=== PATIENT | female | born 1980 | race Native Hawaiian/Other Pacific Islander ===

== ENCOUNTER 2016-08-22 08:50 | Inpatient (IN) | payer OTHER ==
[~2016-08-22 08:50] MED LIST: Lactated Ringer's 1,000 ML IV ONE
--- NOTE | 2016-08-22 09:52 | ED PDOC ---
HPI: Abdomen Time Seen by Provider: 08/22/16 09:23 Chief Complaint (Nursing): Abdominal Pain Chief Complaint (Provider): Abdominal pain, back pain History Per: Patient History/Exam Limitations: no limitations Onset/Duration Of Symptoms: Days Outside of [place] travel?: No Current Symptoms Are (Timing): Still Present Severity: Moderate Location Of Pain/Discomfort: LLQ Quality Of Discomfort: "Pain" Associated Symptoms: Back Pain (radiates from llq to left lower back) Additional History Per: Patient, Family Additional Complaint(s): The pt is a 36yo female with no PMHx, presents to the ED for evaluation of left lower quadrant abdominal pain radiating to her left lower back for the past week. Pt reports the pain as constant and states she has been taking Tylenol with no relief. She reports her pain is worse when she has her menstrual period but denies having her period right now. Additionally pt states this is not the first instance of such pain. She denies any fever, nausea, vomiting, diarrhea or dysuria. She denies any other medical complaints. PCP: None provided Abnormal Vaginal Bleeding: No : 3 Para: 3 Past Medical History Reviewed: Historical Data, Nursing Documentation, Vital Signs Vital Signs: Last Vital Signs Temp 97.6 F 08/22/16 09:19 Pulse 65 08/22/16 09:19 Resp 18 08/22/16 09:19 BP 84/54 L 08/22/16 09:19 Pulse Ox 100 08/22/16 17:56 - Medical History PMH: No Chronic Diseases - Surgical History Surgical History: No Surg Hx - Family History Family History: States: No Known Family Hx - Living Arrangements Living Arrangements: With Family - Social History Current smoker - smoking cessation education provided: No Alcohol: None Drugs: Denies - Allergies Allergies/Adverse Reactions: Allergies Allergy/AdvReac Type Severity Reaction Status Date / Time No Known Allergies Allergy Verified 08/22/16 09:18 Review of Systems ROS Statement: Except As Marked, All Systems Reviewed And Found Negative Constitutional: Negative for: Fever Gastrointestinal: Positive for: Abdominal Pain (llq). Negative for: Nausea, Vomiting, Diarrhea Genitourinary Female: Negative for: Dysuria Musculoskeletal: Positive for: Back Pain (left lower back) Physical Exam - Reviewed Nursing Documentation Reviewed: Yes Vital Signs Reviewed: Yes - Physical Exam Appears: Positive for: Well, Non-toxic, No Acute Distress Head Exam: Positive for: ATRAUMATIC, NORMAL INSPECTION, NORMOCEPHALIC Cardiovascular/Chest: Positive for: Regular Rate, Rhythm Respiratory: Negative for: Respiratory Distress Gastrointestinal/Abdominal: Positive for: Soft, Tenderness (left lower quadrant) Back: Positive for: Normal Inspection. Negative for: L CVA Tenderness, R CVA Tenderness Neurologic/Psych: Positive for: Alert, Oriented - Laboratory Results Result Diagrams: 08/22/16 09:54 08/22/16 09:54 - ECG O2 Sat by Pulse Oximetry: 100 (RA) Pulse Ox Interpretation: Normal Medical Decision Making Medical Decision Making: Time: 949 Impression: Left lower quadrant pain Differential: Ovarian cyst/mass; uterine fibroids; ovarian torsion; related complication; UTI less likely: diverticulitis, obstructive ureter stone Plan: * US Transvaginal/Pelvis * UDip * CMP * Morphine 4 mg IV * ED observation * * Pelvic ultrasound History: Urgency to urinate. Technique: Transabdominal and transvaginal ultrasonography evaluation. Findings: Large uterus with heterogeneous myometrium noted. The uterus measures 12.6 x 9.2 x 9.6 centimeters. The uterus is anteverted. Pedunculated heterogeneous mass likely associated with the uterus measuring 10 x 8 x 10 centimeters. Other presumed fibroids noted with transabdominal measurements of 6 x 5 x 5 centimeters. Homogeneous rounded density in the left adnexa measuring 5.4 x 5 x 5 centimeters. No definite ovarian tissue identified. This could represent an endometrioma versus hemorrhagic cyst. Color Doppler interrogation demonstrates no internal flow. Right ovary not visualized. No significant fluid in the cul-de-sac. Cervix is nabothian cyst measuring 5 x 5 6 x 6 millimeter. Impression: Enlarged extremely heterogeneous uterus with multiple masses which are presumed to be fibroids. This is suboptimally evaluated. MRI of the pelvis with intravenous contrast recommended as follow-up. Ovaries are suboptimally evaluated. Possible endometrioma versus hemorrhagic cyst on the left. Please note that MRI of the pelvis recommended as follow-up will be helpful evaluating the ovaries as well. Alternatively, close interval follow-up ultrasound can also be obtained to evaluate for any change in character. COMPARISON: No relevant prior studies available. FINDINGS: Bowel: Unremarkable. No obstruction. No mucosal thickening. Bladder: Unremarkable. No mass. Reproductive: The uterus is enlarged, measuring 11.1 cm in length by 7.1 cm in the AP dimension by 9.1 cm transversely. There is diffuse myomatous change present. There are discrete fibroids, measuring up to 5.5 cm. There is mass effect on the endometrial canal, which partially obscure the canal. No endometrial masses or fluid collections. There is a large cystic lesion in the left pelvis. The lesion measures 13 x 10 x 10 cm. It probably represents an ovarian lesion. Bones/joints: Unremarkable. No acute fracture. No dislocation. Soft tissues: Unremarkable. Vasculature: Unremarkable. No lower abdominal aortic aneurysm. Lymph nodes: Unremarkable. No enlarged lymph nodes. IMPRESSION: 1. Enlarged myomatous uterus. 2. Large cystic lesion in the left pelvis, probably ovarian. This probably represents a cystadenoma. 1730 Discussed the case with Dr Jo who will see the patient in ED. Scribe Attestation: Documented by Desiree Lees acting as a scribe for Tita Tsang MD. Provider Attestation: All medical record entries made by the Scribe were at my direction and personally dictated by me. I have reviewed the chart and agree that the record accurately reflects my personal performance of the history, physical exam, medical decision making, and the department course for this patient. I have also personally directed, reviewed, and agree with the discharge instructions and disposition. ED OBSERVATION Date of observation admission: 08/22/16 Time of observation admission: 11:00 - Observation admission statement Patient is being placed in observation because:: Pt has acute abdominal pain; awaiting US results and further workup. - Goals of Observation Goals of observation are:: Resolution of abdominal pain, imaging results and final disposition. - Progress Note Progress Note: 08/22/16 13:25 US Impression: Enlarged extremely heterogeneous uterus with multiple masses which are presumed to be fibroids. This is suboptimally evaluated. MRI of the pelvis with intravenous contrast recommended as follow-up. Ovaries are suboptimally evaluated. Possible endometrioma versus hemorrhagic cyst on the left. Please note that MRI of the pelvis recommended as follow-up will be helpful evaluating the ovaries as well. Alternatively, close interval follow-up ultrasound can also be obtained to evaluate for any change in character. 08/22/16 14:02 Pt reports feeling better. Will order MRI for further workup. Disposition - Clinical Impression Clinical Impression: Ovarian mass, left - Patient ED Disposition Is Patient to be Admitted: Yes Discussed With : Blake Jo Doctor Will See Patient In The: ED Counseled Patient/Family Regarding: Studies Performed, Diagnosis - Disposition Disposition Time: 18:00 Condition: FAIR - Pt Status Changed To: Hospital Disposition Of: Inpatient - Admit Certification Admit to Inpatient:: After my assessment, the patient will require hospitalization for at least two midnights. This is because of the severity of symptoms shown, intensity of services needed, and/or the medical risk in this patient being treated as an outpatient. - POA Present On Arrival: None
[2016-08-22 10:07] LABS: BASO # 0.1 K/uL (0.0-0.2); EOS # 0.2 K/uL (0.0-0.7); EOS % 2.5 % (0.0-4.0); HEMATOCRIT 33.7 % (34.0-47.0); LYMPH # 1.8 K/uL (1.0-4.3); LYMPH % 28.4 % (20.0-40.0); MEAN CELL VOLUME 85.1 fl (81.0-99.0); MEAN CORPUSCULAR HEMOGLOBIN 27.2 pg (27.0-31.0); MEAN PLATELET VOLUME 7.7 fl (7.2-11.7); MONO # 0.4 K/uL (0.0-0.8); MONO % 6.1 % (0.0-10.0); RED CELL DISTRIBUTION WIDTH 15.2 % (11.5-14.5); WHITE BLOOD COUNT 6.4 K/uL (4.8-10.8)
[2016-08-22 10:16] LABS: ALB/GLOB RATIO 1.2 (1.0-2.1); ALKALINE PHOSPHATASE 56 U/L (38-126); ALT/SGPT 27 U/L (9-52); AST/SGOT 33 U/L (14-36); BILIRUBIN,TOTAL 0.4 mg/dl (0.2-1.3); BLOOD UREA NITROGEN 13 mg/dl (7-17); CALCIUM 9.3 mg/dL (8.4-10.2); CARBON DIOXIDE 23 mmol/L (22-30); CHLORIDE 104 mmol/L (98-107); GFR AFRICAN-AMERICAN > 60; GLUCOSE,RANDOM 86 mg/dL (65-105); POTASSIUM 4.1 MMOL/L (3.6-5.0); SODIUM 137 mmol/l (132-148); TOTAL PROTEIN 7.9 G/DL (6.3-8.2)
--- NOTE | 2016-08-22 13:24 | US ---
Pelvic ultrasound History: Urgency to urinate. Technique: Transabdominal and transvaginal ultrasonography evaluation. Findings: Large uterus with heterogeneous myometrium noted. The uterus measures 12.6 x 9.2 x 9.6 centimeters. The uterus is anteverted. Pedunculated heterogeneous mass likely associated with the uterus measuring 10 x 8 x 10 centimeters. Other presumed fibroids noted with transabdominal measurements of 6 x 5 x 5 centimeters. Homogeneous rounded density in the left adnexa measuring 5.4 x 5 x 5 centimeters. No definite ovarian tissue identified. This could represent an endometrioma versus hemorrhagic cyst. Color Doppler interrogation demonstrates no internal flow. Right ovary not visualized. No significant fluid in the cul-de-sac. Cervix is nabothian cyst measuring 5 x 5 6 x 6 millimeter. Impression: Enlarged extremely heterogeneous uterus with multiple masses which are presumed to be fibroids. This is suboptimally evaluated. MRI of the pelvis with intravenous contrast recommended as follow-up. Ovaries are suboptimally evaluated. Possible endometrioma versus hemorrhagic cyst on the left. Please note that MRI of the pelvis recommended as follow-up will be helpful evaluating the ovaries as well. Alternatively, close interval follow-up ultrasound can also be obtained to evaluate for any change in character. Discussed with Dr. Tsang find approximately 1:25 p.m. on 08/22/2016.
[2016-08-22] MEDS ORDERED: Sodium Chloride 0.9% 1,000 ML IV STA (13:36)
[2016-08-22] MEDS ORDERED: Gadodiamide 287 MG/ML VIAL (15ML) IV ONE (14:20)
--- NOTE | 2016-08-22 19:03 | CP.PCM.CON ---
History of Present Illness - History of Present Illness History of Present Illness: Patient is a 36y LMP 07/29/16 who presents with c/o left sided back pain x2.5wks. She states pain was initially intermittent and rated as 6/10 but has now increased to intensity of 10/10 and is constant. She states morphine relieved pain to 7/10. c/o emesis x1 after receiving morphine in ED. Her last po was last night before 23:00. She states she feels hungry and wants to eat. OBHX: X3; denies h/o PP hemorrhage or complications PSHX: denies NKDA MEDIC: denies SHX: denies tobacco, illicit drug use or etoh Review of Systems - Constitutional Constitutional: absent: Chills, Excessive Sweating, Increased Appetite, Weight Loss - Cardiovascular Cardiovascular: absent: Chest Pain, Dyspnea - Respiratory Respiratory: absent: Dyspnea on Exertion - Gastrointestinal Gastrointestinal: Abdominal Pain. absent: Bloating, Coffee Ground Emesis - Genitourinary Genitourinary: absent: Flank Pain, Hematuria - Reproductive: Female Reproductive:Female: Normal Menses, Dysmenorrhea. absent: Amenorrhea, Cycle < 21 Days, Cycle >35 Days, Menses >/= 8 Days, Menses Variable, Genital Lesions - Menstruation Menstruation: absent: Spotting Between Cycles Past Patient History - Past Social History Alcohol: None Drugs: Denies - PSYCHIATRIC Hx Substance Use: No - SURGICAL HISTORY Hx Surgeries: No - ANESTHESIA Hx Anesthesia: No Meds Home Medications: Home Medication List Medication Instructions Recorded Confirmed Type Docusate Sodium/Sennosides A 1 tab PO QPM #10 tab 08/24/16 Rx [Senokot S 50 MG-8.6 MG] Ferrous Sulfate [Ferosul] 325 mg PO BID #60 tablet 08/24/16 Rx oxyCODONE/Acetaminophen [Percocet 1 tab PO TID #24 tab 08/24/16 Rx 5/325 mg Tab] Allergies/Adverse Reactions: Allergies Allergy/AdvReac Type Severity Reaction Status Date / Time No Known Allergies Allergy Verified 08/22/16 09:18 Physical Exam - Constitutional Appears: In Acute Distress - Head Exam Head Exam: ATRAUMATIC, NORMOCEPHALIC - GI/Abdominal Exam GI & Abdominal Exam: Normal Bowel Sounds, Soft. absent: Distended, Guarding, Rebound, Tenderness - Exam External exam: NORMAL EXTERNAL EXAM. absent: Ecchymosis, Erythema, Lacerations , Lesions, Swelling Bimanual exam: Adenexal Mass (left sided adnexal mass), Uterine Enlargement. absent: Cervical Motion Tendernes, NORMAL BIMANUAL EXAM (+mass palpated in cul de sac), Uterine Tenderness - Extremities Exam Extremities exam: Positive for: normal capillary refill, normal inspection. Negative for: pedal edema - Back Exam Back exam: NORMAL INSPECTION - Neurological Exam Neurological exam: Alert, Oriented x3 - Psychiatric Exam Psychiatric exam: Normal Affect Results - Vital Signs Recent Vital Signs: Last Vital Signs Temp 97.6 F 08/22/16 09:19 Pulse 65 08/22/16 09:19 Resp 18 08/22/16 09:19 BP 84/54 L 08/22/16 09:19 Pulse Ox 100 08/22/16 18:57 - Labs Result Diagrams: 08/24/16 06:45 08/22/16 09:54 - Imaging and Cardiology US - abdomen Status: Report reviewed by me (US: 12/6x9/2x9/6cm heterogeneous myometrium of uterus ; ?pedunculated fibroid 10cm) MRI - abdomen Status: Report reviewed by me (Left sided pelvic cystic lesion 13x [id number] c/w adenoma) Assessment & Plan - Assessment and Plan (Free Text) Assessment: I: Left sided back pain Left sided pelvic mass- concern for ovarian torsion Fibroid uteru P: pt consented for exploratory laparatomy. d/w pt probable LSO.
[2016-08-22 19:50] LABS: PARTIAL THROMBOPLASTIN TIME 32.5 Seconds (25.6-37.1)
[2016-08-22] MEDS ORDERED: Propofol 10 mg/ml Inj (20 ML) ONE (19:50)
[2016-08-22] MEDS ORDERED: Succinylcholine 200 mg/10 ml Inj IV ONE (19:50)
[2016-08-22] MEDS ORDERED: Midazolam 2 MG/2 ML VIAL ONE (19:52)
[2016-08-22] MEDS ORDERED: Lactated Ringer's 1,000 ML IV ONE ×3 (20:00→23:18)
[2016-08-22] MEDS ORDERED: Rocuronium 10 mg/ml (5 ml) ONE (20:15)
[2016-08-22] MEDS ORDERED: Esmolol 100 mg/10ml Inj IV ONE (20:25)
[2016-08-22] MEDS ORDERED: Desflurane Inhalation Anesthetic Liq (240 ml) ONE (20:30)
[2016-08-22] MEDS ORDERED: Dexamethasone 4 mg/1 ml ONE (20:32)
[2016-08-22] MEDS ORDERED: Neostigmine Methylsulfate 3mg/3ml Syringe IV ONE (21:06)
[2016-08-22] MEDS ORDERED: HEMOSTATIC MATRIX 10 ML DIS.NEEDLE TOP ONE (21:34)
[2016-08-22] MEDS: HYDROmorphone 0.5 mg/0.5 ml ISec IVP PRN ×4 (22:42→23:15)
[2016-08-22] MEDS ORDERED: Oxycodone/Acetaminophen 5/325 mg Tab PO PRN (22:57)
[2016-08-22] MEDS ORDERED: Lactated Ringer's 1,000 ML IV SCH (23:14)
[2016-08-22] MEDS ORDERED: Lactated Ringer's 250 ML IV ONE ×2 (23:30)
[2016-08-22] MEDS ORDERED: Lactated Ringer's 500 ML IV SCH (23:45)
--- NOTE | 2016-08-23 00:28 | PCM.SURG1 ---
Surgeon's Initial Post Op Note - Surgeon's Notes Surgeon: buck Coconut Candy Maker: jean pierre Type of Anesthesia: General Endo ([facility]) Anesthesia Administered By: murray Pre-Operative Diagnosis: Left sided adnexal mass; fibroid uterus Operative Findings: 14cm left ovarian endometrioma; fibroid uterus; adhesions of endometrioma to large intestines and rectum, culdesac, posterior surface of the uterus Post-Operative Diagnosis: Left ovarian endometrioma; Fibroid uterus Operation Performed: Exploratory Lapartomy; cystectomy of left ovarian endometrioma; left salpingoophorectomy Specimen/Specimens Removed: pelvic washing; left ovarian cyst wall; left ovary and tube Estimated Blood Loss: EBL {In ML}: 300 Blood Products Given: N/A Drains Used: No Drains Post-Op Condition: Good Date of Surgery/Procedure: 08/22/16 Time of Surgery/Procedure: 20:15
[2016-08-23] MEDS: Oxycodone/Acetaminophen 5/325 mg Tab PO PRN ×4 (04:17→20:05)
[2016-08-23] MEDS: Lactated Ringer's 1,000 ML IV SCH ×3 (09:36→22:00)
[2016-08-23 10:28] LABS: HEMATOCRIT 26.6 % (34.0-47.0); MEAN CELL VOLUME 85.8 fl (81.0-99.0); MEAN CORPUSCULAR HEMOGLOBIN 26.9 pg (27.0-31.0); MEAN CORPUSCULAR HGB CONC 31.3 g/dL (33.0-37.0); MEAN PLATELET VOLUME 8.1 fl (7.2-11.7); WHITE BLOOD COUNT 11.6 K/uL (4.8-10.8)
--- NOTE | 2016-08-23 12:29 | CP.PCM.PN ---
<Waldo Beaulieu - Last Filed: 08/23/16 13:29> Subjective - Date & Time of Evaluation Date of Evaluation: 08/23/16 Time of Evaluation: 12:10 - Subjective Subjective: Patient is a 36y LMP 07/29/16 admitted for L/back pain seen at bedside on POD1 in not acute distress. C/O LLQ pain that comes and goes and is controlled with pain meds. Denies nausea, vomiting, headaches, dizziness. Patient is tolerating liquid diet since this morning. Sherman in place. Since 7 am today patient is voiding approximately 100cc/hr. Urine clear, yellow. No BM yet. Denies VB. Afebrile Objective - Vital Signs/Intake and Output Vital Signs (last 24 hours): Temp Pulse Resp BP Pulse Ox 98.5 F 56 L 18 90/50 L 100 08/23/16 08:28 08/23/16 08:28 08/23/16 08:28 08/23/16 08:28 08/23/16 08:28 Intake and Output: 08/23/16 08/23/16 06:59 18:59 Intake Total 1350 Output Total 100 Balance 1250 - Medications Medications: Current Medications Lactated Ringer's (Lactated Ringer's 500ml) 500 mls @ 0 mls/hr IV .Q0M [facility] PRN Reason: As Directed Lactated Ringer's (Lactated Ringer's) 1,000 mls @ 150 mls/hr IV .Q6H40M [facility] Last Admin: 08/23/16 09:36 Dose: 150 mls/hr Ondansetron HCl (Zofran Inj) 4 mg IVP Q6 PRN PRN Reason: Nausea/Vomiting Oxycodone/Acetaminophen (Percocet 5/325 Mg Tab) 1 tab PO Q4 PRN PRN Reason: Pain, moderate (4-7) Stop: 08/25/16 22:52 Last Admin: 08/23/16 12:27 Dose: 1 tab Oxycodone/Acetaminophen (Percocet 5/325 Mg Tab) 2 tab PO Q4 PRN PRN Reason: Pain, severe (8-10) Stop: 08/25/16 22:58 Sennosides (Senokot Tab) 17.2 mg PO HS [facility] - Labs Labs: 06/04/17 06:45 PT 11.7 Seconds (9.8-13.1) 08/22/16 19:10 INR 1.0 (0.9-1.2) 08/22/16 19:10 APTT 32.5 Seconds (25.6-37.1) 08/22/16 19:10 - Constitutional Appears: Non-toxic, No Acute Distress - Head Exam Head Exam: NORMAL INSPECTION - Eye Exam Eye Exam: PERRL - ENT Exam ENT Exam: Mucous Membranes Moist - Cardiovascular Exam Cardiovascular Exam: REGULAR RHYTHM, +S1, +S2. absent: Gallop, Murmur - GI/Abdominal Exam GI & Abdominal Exam: Soft, Tenderness (moderate RLQ and LLQ.), Normal Bowel Sounds. absent: Distended, Rebound - Extremities Exam Extremities Exam: Full ROM, Normal Capillary Refill, Normal Inspection. absent : Calf Tenderness - Neurological Exam Neurological Exam: Alert, Awake, Oriented x3 - Psychiatric Exam Psychiatric exam: Normal Affect, Normal Mood - Skin Skin Exam: Normal Color, Warm Assessment and Plan - Assessment and Plan (Free Text) Assessment: 36 y/o F admitted for abd pain to rule out ovarian torsion L/Ovarian Endometrioma Stable S/P Exploratory Laparotomy; cystectomy of left ovarian endometrioma; left salpingoophorectomy POD1 C/w Percocet and Motrin PRN for pain C/W Liquid diet: Will consider advancing diet to regular for dinner if continues tolerating. DC sherman catheter. Will F/U urine output Post op Hgb 8.3. Patient asymptomatic. Will continue monitoring F/U CBC on 08/24/16 C/W IV fluids at 150mls Fibroid uterus Stable Confirmed on exploratory laparotomy F/U Vaginal bleeding Observation DVT Prophylaxis SCDs <Blake Jo S - Last Filed: 08/24/16 14:22> Subjective - Subjective Subjective: OBH ADDENDUM: pt seen & examined by. surgical findings and procedure d/w pt. agree with above assessment and plan. Objective - Vital Signs/Intake and Output Vital Signs (last 24 hours): Temp Pulse Resp BP Pulse Ox 97.9 F 81 18 96/60 L 98 08/24/16 07:34 08/24/16 07:34 08/24/16 07:34 08/24/16 07:34 08/24/16 07:34 - Medications Medications: Current Medications Lactated Ringer's (Lactated Ringer's 500ml) 500 mls @ 0 mls/hr IV .Q0M [facility] PRN Reason: As Directed Lactated Ringer's (Lactated Ringer's) 1,000 mls @ 150 mls/hr IV .Q6H40M [facility] Last Admin: 08/24/16 05:02 Dose: 150 mls/hr Ondansetron HCl (Zofran Inj) 4 mg IVP Q6 PRN PRN Reason: Nausea/Vomiting Oxycodone/Acetaminophen (Percocet 5/325 Mg Tab) 1 tab PO Q4 PRN PRN Reason: Pain, moderate (4-7) Stop: 08/25/16 22:52 Last Admin: 08/24/16 10:33 Dose: 1 tab Oxycodone/Acetaminophen (Percocet 5/325 Mg Tab) 2 tab PO Q4 PRN PRN Reason: Pain, severe (8-10) Stop: 08/25/16 22:58 Sennosides (Senokot Tab) 17.2 mg PO [facility] Last Admin: 08/23/16 22:03 Dose: 17.2 mg Simethicone (Mylicon Chew Tab) 80 mg PO TID PRN PRN Reason: Flatulence Last Admin: 08/23/16 23:10 Dose: 80 mg - Labs Labs: 08/24/16 06:45 PT 11.7 Seconds (9.8-13.1) 08/22/16 19:10 INR 1.0 (0.9-1.2) 08/22/16 19:10 APTT 32.5 Seconds (25.6-37.1) 08/22/16 19:10
[2016-08-23] MEDS: Simethicone 80 mg Chewtab PO PRN ×2 (17:07→23:10)
[2016-08-24] MEDS: Oxycodone/Acetaminophen 5/325 mg Tab PO PRN ×2 (05:01→10:33)
[2016-08-24] MEDS: Lactated Ringer's 1,000 ML IV SCH (05:02)
[2016-08-24 07:34] VITALS: BP 96/60; PULSE 81; RESP 18; TEMP 97.9; O2SAT 98
[2016-08-24 07:57] LABS: BASO % 0.5 % (0.0-2.0); EOS # 0.1 K/uL (0.0-0.7); EOS % 1.5 % (0.0-4.0); HEMATOCRIT 24.4 % (34.0-47.0); LYMPH # 1.4 K/uL (1.0-4.3); LYMPH % 16.8 % (20.0-40.0); MEAN CELL VOLUME 85.5 fl (81.0-99.0); MEAN CORPUSCULAR HEMOGLOBIN 27.8 pg (27.0-31.0); MEAN CORPUSCULAR HGB CONC 32.5 g/dL (33.0-37.0); MONO # 0.6 K/uL (0.0-0.8); MONO % 6.9 % (0.0-10.0); NEUT # 6.3 K/uL (1.8-7.0); NEUT % 74.3 % (50.0-75.0); NRBC % 0.1 % (0.0-0.0); RED CELL DISTRIBUTION WIDTH 15.3 % (11.5-14.5); WHITE BLOOD COUNT 8.4 K/uL (4.8-10.8)
--- NOTE | 2016-08-24 10:17 | CP.PCM.PN ---
<Hiram Rocha - Last Filed: 08/24/16 10:14> Subjective - Date & Time of Evaluation Date of Evaluation: 08/24/16 Time of Evaluation: 10:14 - Subjective Subjective: The patient is a 36 y/o woman with ovarian endometrioma s/p ex-lap, Lt ovarian cystectomy, and Lt salpingoophorectomy 08/22/2016 POD2. The patient was seen this morning. There are no acute events overnight. The patient is not in acute distress. The patient reports that she is now on her period. The patient reports mild pain at the surgical site. The patient is voiding freely and denies headaches, chest pain, SOB, nausea, vomiting, diarrhea , dysuria, and fevers. Objective - Vital Signs/Intake and Output Vital Signs (last 24 hours): Temp Pulse Resp BP Pulse Ox 97.9 F 81 18 96/60 L 98 08/24/16 07:34 08/24/16 07:34 08/24/16 07:34 08/24/16 07:34 08/24/16 07:34 - Medications Medications: Current Medications Lactated Ringer's (Lactated Ringer's 500ml) 500 mls @ 0 mls/hr IV .Q0M [facility] PRN Reason: As Directed Lactated Ringer's (Lactated Ringer's) 1,000 mls @ 150 mls/hr IV .Q6H40M [facility] Last Admin: 08/24/16 05:02 Dose: 150 mls/hr Ondansetron HCl (Zofran Inj) 4 mg IVP Q6 PRN PRN Reason: Nausea/Vomiting Oxycodone/Acetaminophen (Percocet 5/325 Mg Tab) 1 tab PO Q4 PRN PRN Reason: Pain, moderate (4-7) Stop: 08/25/16 22:52 Last Admin: 08/24/16 05:01 Dose: 1 tab Oxycodone/Acetaminophen (Percocet 5/325 Mg Tab) 2 tab PO Q4 PRN PRN Reason: Pain, severe (8-10) Stop: 08/25/16 22:58 Sennosides (Senokot Tab) 17.2 mg PO [facility] Last Admin: 08/23/16 22:03 Dose: 17.2 mg Simethicone (Mylicon Chew Tab) 80 mg PO TID PRN PRN Reason: Flatulence Last Admin: 08/23/16 23:10 Dose: 80 mg - Labs Labs: 08/24/16 06:45 PT 11.7 Seconds (9.8-13.1) 08/22/16 19:10 INR 1.0 (0.9-1.2) 08/22/16 19:10 APTT 32.5 Seconds (25.6-37.1) 08/22/16 19:10 - Constitutional Appears: No Acute Distress - Head Exam Head Exam: ATRAUMATIC, NORMOCEPHALIC - Respiratory Exam Respiratory Exam: Clear to Ausculation Bilateral. absent: Rales, Rhonchi, Wheezes, Respiratory Distress - Cardiovascular Exam Cardiovascular Exam: REGULAR RHYTHM, RRR - GI/Abdominal Exam GI & Abdominal Exam: Soft, Normal Bowel Sounds. absent: Distended Additional comments: low transverse incision C/D/I with steri-strips in place. No induration, no erythema, no oozing, no edema - Extremities Exam Extremities Exam: absent: Calf Tenderness, Tenderness - Neurological Exam Neurological Exam: Alert, Awake, Normal Gait, Oriented x3 - Skin Skin Exam: Dry, Intact, Normal Color, Warm Assessment and Plan - Assessment and Plan (Free Text) Assessment: The patient is a 36 y/o woman with ovarian endometrioma s/p ex-lap, Lt ovarian cystectomy, and Lt salpingoophorectomy 08/22/2016 POD2. Plan: Ovarian endometrioma - s/p ex-lap, Lt ovarian cystectomy, and Lt salpingoophorectomy 08/22/2016 POD2 - lane CHUN'ed - patient voiding freely - reg diet - clear for discharge home today - scripts in chart <Blake Jo S - Last Filed: 08/24/16 14:40> Subjective - Subjective Subjective: Pt seen & examined by me. Agree with Dr. Rocha's assessment and plna. Pt reports +flatus and tolerating reg diet. Denies bm, nausea or emesis Objective - Vital Signs/Intake and Output Vital Signs (last 24 hours): Temp Pulse Resp BP Pulse Ox 97.9 F 81 18 96/60 L 98 08/24/16 07:34 08/24/16 07:34 08/24/16 07:34 08/24/16 07:34 08/24/16 07:34 - Medications Medications: Current Medications Lactated Ringer's (Lactated Ringer's 500ml) 500 mls @ 0 mls/hr IV .Q0M [facility] PRN Reason: As Directed Lactated Ringer's (Lactated Ringer's) 1,000 mls @ 150 mls/hr IV .Q6H40M [facility] Last Admin: 08/24/16 05:02 Dose: 150 mls/hr Ondansetron HCl (Zofran Inj) 4 mg IVP Q6 PRN PRN Reason: Nausea/Vomiting Oxycodone/Acetaminophen (Percocet 5/325 Mg Tab) 1 tab PO Q4 PRN PRN Reason: Pain, moderate (4-7) Stop: 08/25/16 22:52 Last Admin: 08/24/16 10:33 Dose: 1 tab Oxycodone/Acetaminophen (Percocet 5/325 Mg Tab) 2 tab PO Q4 PRN PRN Reason: Pain, severe (8-10) Stop: 08/25/16 22:58 Sennosides (Senokot Tab) 17.2 mg PO [facility] Last Admin: 08/23/16 22:03 Dose: 17.2 mg Simethicone (Mylicon Chew Tab) 80 mg PO TID PRN PRN Reason: Flatulence Last Admin: 08/23/16 23:10 Dose: 80 mg - Labs Labs: 08/24/16 06:45 PT 11.7 Seconds (9.8-13.1) 08/22/16 19:10 INR 1.0 (0.9-1.2) 08/22/16 19:10 APTT 32.5 Seconds (25.6-37.1) 08/22/16 19:10 - Respiratory Exam Respiratory Exam: NORMAL BREATHING PATTERN. absent: Accessory Muscle Use - GI/Abdominal Exam GI & Abdominal Exam: absent: Guarding, Rebound (Incision: c/d/i no erythem, induration, or ecchymoisi) - Psychiatric Exam Psychiatric exam: Normal Affect Assessment and Plan - Assessment and Plan (Free Text) Assessment: POD 2 doing well Plan: Rx in chart for Percocet 5/325, senokotS adn Feso4 bid. Pt to f/u in [facility] in 1wk. She and spouse were advised that path report will be available at f/u appt.
--- NOTE | 2016-08-24 10:41 | CP.PCM.DIS ---
Provider - Provider Date of Admission: 08/22/16 18:41 Attending physician: Blake Jo MD Time Spent in preparation of Discharge (in minutes): 15 Diagnosis - Discharge Diagnosis (1) Ovarian endometriosis Status: Acute Hospital Course - Lab Results Lab Results: Most Recent Lab Values WBC 8.4 K/uL (4.8-10.8) 08/24/16 06:45 RBC 2.85 Mil/uL (3.80-5.20) L 08/24/16 06:45 Hgb 7.9 g/dL (12.0-16.0) L 08/24/16 06:45 Hct 24.4 % (34.0-47.0) L 08/24/16 06:45 MCV 85.5 fl (81.0-99.0) 08/24/16 06:45 MCH 27.8 pg (27.0-31.0) 08/24/16 06:45 MCHC 32.5 g/dL (33.0-37.0) L 08/24/16 06:45 RDW 15.3 % (11.5-14.5) H 08/24/16 06:45 Plt Count 286 K/uL (130-400) 08/24/16 06:45 MPV 8.0 fl (7.2-11.7) 08/24/16 06:45 Neut % (Auto) 74.3 % (50.0-75.0) 08/24/16 06:45 Lymph % (Auto) 16.8 % (20.0-40.0) L 08/24/16 06:45 [place] % (Auto) 6.9 % (0.0-10.0) 08/24/16 06:45 Eos % (Auto) 1.5 % (0.0-4.0) 08/24/16 06:45 Baso % (Auto) 0.5 % (0.0-2.0) 08/24/16 06:45 Neut # 6.3 K/uL (1.8-7.0) 08/24/16 06:45 Lymph # 1.4 K/uL (1.0-4.3) 08/24/16 06:45 [place] # 0.6 K/uL (0.0-0.8) 08/24/16 06:45 Eos # 0.1 K/uL (0.0-0.7) 08/24/16 06:45 Baso # 0.0 K/uL (0.0-0.2) 08/24/16 06:45 PT 11.7 Seconds (9.8-13.1) 08/22/16 19:10 INR 1.0 (0.9-1.2) 08/22/16 19:10 APTT 32.5 Seconds (25.6-37.1) 08/22/16 19:10 Sodium 137 mmol/l (132-148) 08/22/16 09:54 Potassium 4.1 MMOL/L (3.6-5.0) 08/22/16 09:54 Chloride 104 mmol/L (98-107) 08/22/16 09:54 Carbon Dioxide 23 mmol/L (22-30) 08/22/16 09:54 Anion Gap 13 (10-20) 08/22/16 09:54 BUN 13 mg/dl (7-17) 08/22/16 09:54 Creatinine 0.7 mg/dL (0.7-1.2) 08/22/16 09:54 Est GFR ( Amer) > 60 08/22/16 09:54 Est GFR (Non-Af Amer) > 60 08/22/16 09:54 Random Glucose 86 mg/dL (65-105) 08/22/16 09:54 Calcium 9.3 mg/dL (8.4-10.2) 08/22/16 09:54 Total Bilirubin 0.4 mg/dl (0.2-1.3) 08/22/16 09:54 AST 33 U/L (14-36) 08/22/16 09:54 ALT 27 U/L (9-52) 08/22/16 09:54 Alkaline Phosphatase 56 U/L (38-126) 08/22/16 09:54 Total Protein 7.9 G/DL (6.3-8.2) 08/22/16 09:54 Albumin 4.4 g/dL (3.5-5.0) 08/22/16 09:54 Globulin 3.5 gm/dL (2.2-3.9) 08/22/16 09:54 Albumin/Globulin Ratio 1.2 (1.0-2.1) 08/22/16 09:54 Blood Type A POSITIVE 08/22/16 19:10 Blood Type Confirm A POSITIVE 08/22/16 20:10 Antibody Screen Negative 08/22/16 19:10 BBK History Checked No verified bt 08/22/16 19:10 - Hospital Course Hospital Course: The patient is a 36y/o LMP 07/29/16 who presents with c/o left sided back pain x2.5wks. The patient found to have ovarian endometrioma s/p ex-lap, Lt ovarian cystectomy, and Lt salpingoophorectomy 08/22/2016 POD2. The patient is afebrile and Hg at 7.9 with no complaints of bleeding but does reports that she is starting her period. The patient has been recovering appropriately s/p procedure. The patient is no longer on sherman and is voiding freely with no blood. The patient denies headaches, chest pain, SOB, nausea, vomiting, diarrhea, dysuria, and fevers. The patient has been seen, examined, and deemed medically fit with no contraindication for discharge home. The patient has scripts for senokot, percocet, and ferrous sulfate signed and in her chart. 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 Discharge Exam - Head Exam Head Exam: ATRAUMATIC, NORMOCEPHALIC - Respiratory Exam Respiratory Exam: Clear to PA & Lateral. absent: Rales, Rhonchi, Wheezes, Respiratory Distress, Stridor - Cardiovascular Exam Cardiovascular Exam: REGULAR RHYTHM - GI/Abdominal Exam GI & Abdominal Exam: Normal Bowel Sounds, Soft. absent: Distended Additional comments: low transverse incision C/D/I with steri-strips in place. No induration, no erythema, no oozing, no edema - Extremities Exam Extremities exam: normal inspection - Neurological Exam Neurological exam: Alert, Normal Gait, Oriented x3 - Skin Skin Exam: Dry, Intact, Warm Discharge Plan - Discharge Medications Prescriptions: Docusate Sodium/Sennosides A [Senokot S 50 MG-8.6 MG] 1 tab PO QPM #10 tab Ferrous Sulfate [Ferosul] 325 mg PO BID #60 tablet oxyCODONE/Acetaminophen [Percocet 5/325 mg Tab] 1 tab PO TID #24 tab - Follow Up Plan Condition: FAIR Disposition: HOME/ ROUTINE Instructions: Endometriosis (DC), Endometriosis (GEN), Laparoscopic Excision of Ovarian Cysts (DC), Salpingo-oophorectomy (DC), Salpingo-oophorectomy (GEN) Additional Instructions: Please follow up geological engineering teacher in 1 week
--- NOTE | 2016-08-24 12:12 | MRI ---
MRI pelvis with IV contrast Indication: LLQ pain, left ovarian mass no flow Technique: Multiplanar, multi sequence magnetic resonance images of the pelvis were obtained following the administration of intravenous gadolinium. A total of 338 images submitted for review Comparison: Pelvic ultrasound performed 08/22/16 Findings: Enlarged heterogeneous uterus measuring approximately 9.3 x 7.8 x 9.6 cm. Numerous probable uterine fibroids measuring up to 5.5 cm. Diffuse myomatous change. Limited assessment of the endometrial stripe appears grossly unremarkable. 13 x 10 x 10 cm large cystic lesion predominantly within the left pelvis however traversing midline which appears mildly T1 hypo intense and T2 hyperintense. Ovarian origin is suspected. Additional smaller left adnexal lesion measures approximately 4.5 x 4.5 cm which appears intermediate on T2 weighted imaging and hyperintense on T1 weighted imaging. No significant pelvic free fluid identified. Limited visualization of included bowel loops appear within normal limits of caliber without evidence of obstruction. Decompressed urinary bladder precludes adequate evaluation. Impression: Large cystic lesion predominantly within the left pelvis which crosses midline ; ovarian origin suspected. Additional smaller cystic lesion within the left adnexa as above. Appearance of these findings concerning for cystic neoplasm ; malignancy is not excluded. Enlarged heterogeneous uterus containing multiple probable fibroids. Preliminary impression was provided by virtual radiologic.
--- NOTE | 2016-08-31 20:59 | OP ---
PROCEDURE DATE: 08/23/2016 PREOPERATIVE DIAGNOSES: 1. Pelvic pain 2. Left-sided adnexal mass. 3. Fibroid uterus. POSTOPERATIVE DIAGNOSES: 1. Left ovarian endometrioma. 2. Fibroid uterus. INTRAOPERATIVE FINDINGS: Showed a 14 cm left ovarian endometrioma filling the pelvis; adhesions of e ndometrioma to large intestines, rectum, cul-de-sac, and posterior surface of the uterine wall; fibro id uterus. PROCEDURE: Exploratory laparotomy, cystectomy of left ovarian endometrioma, and left salpingo-oophor ectomy. SURGEON: Blake Jo MD CLASSIFICATION OFFICER: Dr. Rambo Castillo ANESTHESIA: General endotracheal. ANESTHESIOLOGIST: Dr. Mitchell ESTIMATED BLOOD LOSS: 300 mL. PATHOLOGY: The left ovary and tube and left ovarian cyst wall were submitted to pathology, as well a s pelvic washings. CATHETER: Cosby catheter was placed to drainage. CONDITION: The patient to recovery room in satisfactory condition. INDICATIONS: The patient is a 36-year-old female 3, para 3 with an LMP of 07/29/16, who pres ented to the Emergency Room with complaints of left-sided back pain x 2-1/2 weeks. She states that p ain was initially intermittent and rated 6/10, but had increased to 10/10, and was constant, and was the reason for her presentation to the ED. The patient had diagnostic evaluation, which included an ultrasound which showed a pelvic mass. An MRI was done to further differentiate this mass. The MRI finding was left ovarian cystadenoma. INFORMED CONSENT: An informed consent was obtained for surgical treatment and management. Risks, be nefits, indications were discussed with patient and she agreed with the planned procedure. PROCEDURE: The patient was taken to the operating room where she was placed in dorsal supine positio n and underwent her general anesthesia without complications. She was then prepped and draped in a r outine sterile fashion. A Pfannenstiel skin incision was made with the knife and this was carried do wn to the underlying rectus fascia, which was incised in the midline and extended bilaterally. The i nferior rectus fascial edge was grasped with Kochers, elevated, and the underlying rectus muscle diss ected off. The same procedure was performed along the superior rectus fascial edge. Pelvic washings were obtained. A large, what appeared to be a large brownish-looking cyst approximately 14 cm in di ameter, was noted to be sitting within the pelvis. It was noted to be adherent posteriorly, namely a long the rectum and large intestine, as well as left laterally and anteriorly to the uterine wall. A n incision was made into the most dependent area of the ovarian cortex with the Metzenbaums. The Met zenbaums were then used to create a plane between the ovarian cyst wall and the ovarian cortex. This procedure was used applying countertraction on the cortex with an Allis clamp. About 50% of the cys t was moved in this manner. After shelling out about 50% of the ovarian cyst, the cyst ruptured and brown, thickened fluid spilled out, consistent with a chocolate cyst. The fluid was immediately aspi rated and this was followed by copious irrigation and meticulous suction. The cyst was then grasped with the pickups with teeth and countertraction was applied along the ovarian cortex to remove the re mainder of the cyst. Following completion of the cystectomy, there was bleeding noted along the hilu m of the ovary. This was unresponsive to fulguration and it was decided to proceed with the left rosalia pingo-oophorectomy. The proximal portion of the fallopian tube and the uteroovarian ligament were cl amped with a Dunia clamp, ligated with 0 Vicryl suture, and cut. Following this, in a sequential ma nner, inferior and proximal to the fallopian tube, the mesosalpinx was clamped, cut, and ligated in a sequential manner. Upon reaching the IP ligament, the IP ligament was clamped, suture ligated, and cut. The remaining portion of the broad ligament, which attached, was also clamped, cut, and suture ligated. Good hemostasis was confirmed along the IP ligament and the uterus, the site where the ovar suzy ligament and fallopian tube had been clamped and cut. There was some bleeding noted along the ra w areas where the adhesions had been lysed to remove the ovary and along the cul-de-sac and rectum. This was well controlled with cauterization and Floseal. Prior to application of Floseal, the pelvis was irrigated and cleared of all clots and debris. The peritoneum was reapproximated with 2-0 Vicry l in a running fashion. The fascia was reapproximated with 0 Vicryl in a running fashion, beginning left lateral corner going to midline, another stitch beginning in the right lateral corner going to t he midline. The skin was reapproximated with a subcuticular stitch of 0 Monocryl. All sponge, lap, and needle counts were correct x 2 and patient returned to recovery room in satisfac tory condition. Blake Jo MD cc: [id number] TT: 08/31/2016 20:58:18 dn
== END 2016-08-24 14:15 | disposition home or self-care (01) | DRG 359 ==
LOC: H.ER 08:50 → H.EROBSV 11:00 → OBSVTOIN 18:41 → H.ERHOLD 18:41 → H.MEDSURG1 08-23 00:11
PROVIDERS: ADMIT Obstetrics & Gynecology; ATTEND Obstetrics & Gynecology
PROC: 0UT60ZZ Resection of Left Fallopian Tube, Open Approach (ICD-10-PCS; 2016-08-22)
PROC: 0UB10ZZ Excision of Left Ovary, Open Approach (ICD-10-PCS; principal; 2016-08-22 18:00)
PROC: 0UT10ZZ Resection of Left Ovary, Open Approach (ICD-10-PCS; 2016-08-22 18:00)
DX: N80.1 Endometriosis of ovary (principal); D25.9 Leiomyoma of uterus, unspecified; N73.6 Female pelvic peritoneal adhesions (postinfective); N83.8 Other noninflammatory disorders of ovary, fallopian tube and broad ligament

== ENCOUNTER 2017-02-07 11:21 | Observation (INO) | payer SELFPAY ==
--- NOTE | 2017-02-07 12:03 | ED PDOC ---
HPI: Female Pain Time Seen by Provider: 02/07/17 11:45 Chief Complaint (Nursing): Female Genitourinary Chief Complaint (Provider): vaginal bleeding History Per: Patient History/Exam Limitations: no limitations Onset/Duration Of Symptoms: Days (10+) Current Symptoms Are (Timing): Still Present Severity: Moderate Quality Of Discomfort: denies: Dull, Cramping Associated Symptoms: Back Pain. denies: Diarrhea, Constipation, Urinary Symptoms Alleviating Factors: None Additional History Per: Prior Records Additional Complaint(s): 36yo female hx L oophorectomy (ovarian mass) due to mass in summer 2017 presents with persistent vaginal bleeding now ongoing about 2 weeks. Symptoms associated w/ mild headache and exertional dyspnea. Denies pelvic pain or cramping. Past Medical History Reviewed: Historical Data, Nursing Documentation, Vital Signs Vital Signs: Last Vital Signs Temp 98.0 F 02/07/17 11:26 Pulse 117 H 02/07/17 11:26 Resp 18 02/07/17 11:26 BP 99/57 L 02/07/17 11:26 Pulse Ox 100 02/07/17 11:26 - Medical History PMH: Denies: Anxiety, Bipolar Disorder, Depression, Paranoia, Post Traumatic Stress Disorder, Chronic Kidney Disease, Schizophrenia Other PMH: ovarian mass - Surgical History Other surgeries: as per HPI - Family History Family History: States: Unknown Family Hx - Social History Current smoker - smoking cessation education provided: No - Home Medications Home Medications: Ambulatory Orders Medication Instructions Recorded Ferrous Sulfate [Ferosul] 325 mg PO BID #60 tablet 08/24/16 - Allergies Allergies/Adverse Reactions: Allergies Allergy/AdvReac Type Severity Reaction Status Date / Time No Known Allergies Allergy Verified 08/22/16 09:18 Review of Systems Constitutional: Positive for: Weakness, Malaise Cardiovascular: Negative for: Chest Pain Respiratory: Positive for: SOB with Exertion. Negative for: Cough Gastrointestinal: Negative for: Abdominal Pain Genitourinary Female: Positive for: Vaginal Bleeding. Negative for: Dysuria, Frequency, Pelvic Pain Musculoskeletal: Positive for: Back Pain. Negative for: Neck Pain, Arm Pain, Leg Pain Skin: Negative for: Rash, Lesions, Jaundice Neurological: Positive for: Weakness (generalized), Headache, Dizziness. Negative for: Change in Speech Psych: Negative for: Anxiety Physical Exam - Reviewed Nursing Documentation Reviewed: Yes Vital Signs Reviewed: Yes - Physical Exam Appears: Positive for: Well, Non-toxic, No Acute Distress Head Exam: Positive for: ATRAUMATIC, NORMAL INSPECTION, NORMOCEPHALIC Skin: Positive for: Warm, Pallor Eye Exam: Positive for: EOMI, Normal appearance, PERRL ENT: Positive for: Normal ENT Inspection Neck: Positive for: Normal, Painless ROM Cardiovascular/Chest: Positive for: Tachycardia Respiratory: Positive for: Normal Breath Sounds. Negative for: Respiratory Distress Pulses-Radial (R): 1+ Gastrointestinal/Abdominal: Positive for: Bowel Sounds, Soft. Negative for: Tenderness, Guarding Back: Positive for: Normal Inspection Extremity: Positive for: Normal ROM Neurologic/Psych: Positive for: Alert, Oriented. Negative for: Motor/Sensory Deficits - Laboratory Results Result Diagrams: 02/07/17 12:12 02/07/17 12:12 - ECG O2 Sat by Pulse Oximetry: 100 Medical Decision Making Medical Decision Making: pt appears palorous w/ mild tachycardia. Prior labs reviewed, Hgb 8.4 earlier this month. Type/screen and status, CBC, chem ordered. Hgb 02/01 8.4 ---> now 02/07 6.0 Quant neg US from Jan 12 reveals R ovarian mass rec MRI, has scheduled this week D/w Dr Quezada for [employer] consult D/w FP resident for obs MS admission for PRBC Patient signed consent for PRBC transfusion after risks/benefits/alternatives explained. Disposition - Clinical Impression Clinical Impression: Anemia, Dyspnea, Vaginal bleeding - Patient ED Disposition Is Patient to be Admitted: Yes Counseled Patient/Family Regarding: Studies Performed, Diagnosis - Disposition Disposition Time: 13:01 Condition: STABLE Forms: [employer] (Estonian) - Pt Status Changed To: Hospital Disposition Of: Observation
[2017-02-07 12:45] LABS: BASO % 0.4 % (0.0-2.0); EOS # 0.1 K/uL (0.0-0.7); EOS % 0.8 % (0.0-4.0); HEMATOCRIT 18.3 % (34.0-47.0); LYMPH # 1.7 K/uL (1.0-4.3); LYMPH % 18.1 % (20.0-40.0); MEAN CELL VOLUME 88.1 fl (81.0-99.0); MEAN CORPUSCULAR HEMOGLOBIN 28.9 pg (27.0-31.0); MEAN CORPUSCULAR HGB CONC 32.8 g/dL (33.0-37.0); MEAN PLATELET VOLUME 7.5 fl (7.2-11.7); MONO # 0.5 K/uL (0.0-0.8); MONO % 5.3 % (0.0-10.0); NEUT % 75.4 % (50.0-75.0); NRBC % 0.1 % (0.0-0.0); RED CELL DISTRIBUTION WIDTH 14.6 % (11.5-14.5); WHITE BLOOD COUNT 9.3 K/uL (4.8-10.8)
[2017-02-07 12:50] LABS: ALB/GLOB RATIO 1.2 (1.0-2.1); ALKALINE PHOSPHATASE 40 U/L (38-126); ALT/SGPT 27 U/L (9-52); AST/SGOT 24 U/L (14-36); BILIRUBIN,TOTAL 0.1 mg/dl (0.2-1.3); BLOOD UREA NITROGEN 10 mg/dl (7-17); CALCIUM 8.5 mg/dL (8.4-10.2); CARBON DIOXIDE 25 mmol/L (22-30); CHLORIDE 105 mmol/L (98-107); GFR AFRICAN-AMERICAN > 60; GLUCOSE,RANDOM 107 mg/dL (65-105); SODIUM 138 mmol/l (132-148); TOTAL PROTEIN 6.5 G/DL (6.3-8.2)
[2017-02-07 13:49] LABS: PARTIAL THROMBOPLASTIN TIME 29.8 Seconds (25.6-37.1)
--- NOTE | 2017-02-07 13:57 | CP.PCM.HP ---
History of Present Illness - History of Present Illness History of Present Illness: 36 year old , LMP 01/27/2017 presents with complaints of fatigue, headache, bleeding x 10 days, and palpitations. The patient has past medical history significant for anemia and left ovarian cyst, subsequently had left ovarian cystectomy with left salpigoophorectomy in August 2016. Her menses prior to this procedure was monthly, no heavy bleeding. She last took iron in August and September. Her menses since her surgery has been irregular, menses returned on Dec 20, 2016 , regular, lasted 3 days. LMP [id number] to present, she began passing blood clots this morning. Her headache and fatigue have been present for 2 days, and her palpitations started this morning. She denies any dizziness, chest pain or dyspnea. She had a transvaginal u/s, results are below. Scheduled for pelvic MRI on 02/12. She has three children, all were , no bleeding or other complications after delivery. No history of blood transfusions. Denies personal or family history of any chronic diseases, or hematologic diseases. Transvaginal u/s done on 01/12/2017: Impression: 1. Enlarged uterus with heterogeneous myometrium with cystic changes which may represent adenomyomatosis. No discrete fibroid identified. 2. 5.6 x 5.1 x 4.7 cm complex cystic mass in the right ovary with the echogenic solid component measuring 1.7 cm which may represent fat or hemorrhage, and a complex cyst could represent a fibroid or hemorrhagic cyst. Neoplastic etiology cannot be entirely excluded. If clinically indicated, correlation with MRI may be performed. Clinical follow-up is advised. 12 point review of systems negative except as per HPI. PMD: Dr. Camarena PMH: Anemia, Left ovarian cyst, right ovarian mass OB: , x 3, no complications after delivery RUBY ENGINEER: Pap: 12/29/2016: NILM, HPV negative, neg gc/ct Surgical Hx: left cystectomy, left salpingoophorectomy (08/[address] Jo) Family Hx: denies Medications: none Allergies: NKDA Present on Admission - Present on Admission Any Indicators Present on Admission: No Past Patient History - Infectious Disease Hx of Infectious Diseases: None - Past Medical History & Family History Past Medical History?: No - Past Social History Smoking Status: Never Smoked - CARDIAC Hx Cardiac Disorders: No - PULMONARY Hx Respiratory Disorders: No - NEUROLOGICAL Hx Neurological Disorder: No - HEENT Hx HEENT Problems: No - RENAL Hx Chronic Kidney Disease: No - ENDOCRINE/METABOLIC Hx Endocrine Disorders: No - HEMATOLOGICAL/ONCOLOGICAL Hx Blood Disorders: No - INTEGUMENTARY Hx Dermatological Problems: No - MUSCULOSKELETAL/RHEUMATOLOGICAL Hx Musculoskeletal Disorders: No - GENITOURINARY/GYNECOLOGICAL Hx Genitourinary Disorders: No - PSYCHIATRIC Hx Anxiety: No Hx Bipolar Disorder: No Hx Depression: No Hx Paranoia: No Hx Post Traumatic Stress Disorder: No Hx Schizophrenia: No - SURGICAL HISTORY Hx Surgeries: No - ANESTHESIA Hx Anesthesia: No Meds Allergies/Adverse Reactions: Allergies Allergy/AdvReac Type Severity Reaction Status Date / Time No Known Allergies Allergy Verified 08/22/16 09:18 Physical Exam - Constitutional Appears: Non-toxic, No Acute Distress - Head Exam Head Exam: ATRAUMATIC, NORMAL INSPECTION, NORMOCEPHALIC - Eye Exam Eye Exam: Normal appearance, PERRL Pupil Exam: NORMAL ACCOMODATION - ENT Exam ENT Exam: Mucous Membranes Moist, Normal Exam - Respiratory Exam Respiratory Exam: Clear to Auscultation Bilateral, NORMAL BREATHING PATTERN. absent: Decreased Breath Sounds, Wheezes, Respiratory Distress - Cardiovascular Exam Cardiovascular Exam: Tachycardia, REGULAR RHYTHM, +S1, +S2. absent: Diastolic murmur, Systolic Murmur - GI/Abdominal Exam GI & Abdominal Exam: Normal Bowel Sounds, Soft. absent: Distended, Guarding, Tenderness - Exam Additional comments: deferred - Extremities Exam Extremities exam: Positive for: normal inspection. Negative for: pedal edema, tenderness - Neurological Exam Neurological exam: Alert, CN II-XII Intact, Normal Gait, Oriented x3 - Psychiatric Exam Psychiatric exam: Normal Affect, Normal Mood - Skin Skin Exam: Dry, Intact, Pallor Results - Vital Signs Recent Vital Signs: Last Vital Signs Temp 98.7 F 02/07/17 13:45 Pulse 101 H 02/07/17 13:45 Resp 16 02/07/17 13:45 BP 123/82 02/07/17 13:45 Pulse Ox 100 02/07/17 13:45 - Labs Result Diagrams: 02/07/17 12:12 02/07/17 12:12 Labs: Laboratory Results - last 24 hr 02/07/17 02/07/17 02/07/17 12:12 12:12 12:12 WBC 9.3 RBC 2.08 L Hgb 6.0 L* D Hct 18.3 L MCV 88.1 D MCH 28.9 MCHC 32.8 L RDW 14.6 H Plt Count 395 MPV 7.5 Neut % (Auto) 75.4 H Lymph % (Auto) 18.1 L [place] % (Auto) 5.3 Eos % (Auto) 0.8 Baso % (Auto) 0.4 Neut # 7.0 Lymph # 1.7 [place] # 0.5 Eos # 0.1 Baso # 0.0 PT INR APTT Sodium 138 Potassium 4.0 Chloride 105 Carbon Dioxide 25 Anion Gap 12 BUN 10 Creatinine 0.5 L Est GFR ( Amer) > 60 Est GFR (Non-Af Amer) > 60 Random Glucose 107 H Calcium 8.5 Total Bilirubin 0.1 L AST 24 ALT 27 Alkaline Phosphatase 40 Total Protein 6.5 Albumin 3.5 Globulin 2.9 Albumin/Globulin Ratio 1.2 Beta HCG, Quant < 2.39 Blood Type A POSITIVE Antibody Screen Negative Crossmatch See Detail BBK History Checked Patient has bt 02/07/17 12:45 WBC RBC Hgb Hct MCV MCH MCHC RDW Plt Count MPV Neut % (Auto) Lymph % (Auto) [place] % (Auto) Eos % (Auto) Baso % (Auto) Neut # Lymph # [place] # Eos # Baso # PT 11.0 INR 1.0 APTT 29.8 Sodium Potassium Chloride Carbon Dioxide Anion Gap BUN Creatinine Est GFR ( Amer) Est GFR (Non-Af Amer) Random Glucose Calcium Total Bilirubin AST ALT Alkaline Phosphatase Total Protein Albumin Globulin Albumin/Globulin Ratio Beta HCG, Quant Blood Type Antibody Screen Crossmatch BBK History Checked Assessment & Plan (1) Symptomatic anemia Assessment and Plan: 36 year old female presented with complaints of fatigue, headache, palpitations and menometorrhagia, admitted for symptomatic anemia, abnormal uterine bleeding , with right ovarian mass She was found to have Hg of 6.0 with tachycardia, tele-monitor in ED: NSR HR 100s, BP 120/80s She is currently hemodynamically stable. Chart reviewed in [facility] and [facility]: Normocytic anemia has been present since August of 2016, and is likely related to blood loss, however there are no iron studies. Iron, TIBC and ferritin ordered. Coags WNL this admission. The patient had labs done on 02/01/2017: Vitamin B12, Folate, TSH were all WNL, Hg 8.9 Will hold off on further imaging until patient has been evaluated by RUBY ENGINEER. -Admit to med/surg -Patient will be transfused 2 units PRBCs. Repeat CBC in AM. -RUBY ENGINEER consult: Dr. Lorenzo Faulkner d/w Dr. Gay Status: Acute (2) Menometrorrhagia Status: Acute (3) DVT prophylaxis Assessment and Plan: SCDs Status: Acute
[2017-02-07 16:36] LABS: IRON < 10 ug/dL (37-170)
--- NOTE | 2017-02-07 16:45 | CP.PCM.CON ---
<Amberly Fulton - Last Filed: 02/07/17 16:21> History of Present Illness - History of Present Illness History of Present Illness: 36 yo F, presented to ED due to vaginal bleeding x 10 days, palpitations , and passing a clot this morning. She has a history of left salpingo- oophorectomy done in August 2015, after a L sided adnexal mass was identified. Prior to August 2016, she had periods occurring every 30 days, which she described as heavy and painful- states she would use 4 pads/day. Pt states that her periods have since been irregular; she did not have one in November, had one Dec 20-Dec 26, and her LMP was 11 and continues through today. Pt states that for the first 4 days the bleeding was heavy, and it has since decreased and is slowing down. Impression of transvaginal u/s done 01/12/17 is below: Impression: 1. Enlarged uterus with heterogeneous myometrium with cystic changes which may represent adenomyomatosis. No discrete fibroid identified. 2. 5.6 x 5.1 x 4.7 cm complex cystic mass in the right ovary with the echogenic solid component measuring 1.7 cm which may represent fat or hemorrhage, and a complex cyst could represent a fibroid or hemorrhagic cyst. Neoplastic etiology cannot be entirely excluded. If clinically indicated, correlation with MRI may be performed. Clinical follow-up is advised. Pt has outpatient MRI scheduled for 02/12. PMD: Dr. Peña at [facility]; has been following since discharge after left salpingo-oophorectomy OBhx: 3 NVD (2003, 2004, 2008). Pt states all were full term and she had no post - complications. 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 Pap in 12/2016 NILM. Medical hx: anemia Family hx: non-contributory Surg hx: Left Salpingo-Oophorectomy in August 2016 Social hx: denies tobacco, alcohol, illicit drug use Allergies: NKDA Rx medications: states she took iron in August and September 2016, then stopped, but took iron on Thurs/Fri/Sat of this week because she felt weak Review of systems: Gen: positive for headaches for 2 days. Denies dizziness or lightheadedness. CV: positive for palpitations; denies chest pain. Resp: denies SOB or dyspnea on exertion GI: denies nausea, vomiting, diarrhea; states she had some constipation after taking iron this week : vaginal bleeding as per HPI. denies urinary symptoms Ext: denies muscle/joint pains Review of Systems - Review of Systems Review of Systems: as per HPI Past Patient History - Infectious Disease Hx of Infectious Diseases: None - Past Medical History & Family History Past Medical History?: No - Past Social History Smoking Status: Never Smoked Alcohol: None Drugs: Denies - CARDIAC Hx Cardiac Disorders: No - PULMONARY Hx Respiratory Disorders: No - NEUROLOGICAL Hx Neurological Disorder: No - HEENT Hx HEENT Problems: No - RENAL Hx Chronic Kidney Disease: No - ENDOCRINE/METABOLIC Hx Endocrine Disorders: No - HEMATOLOGICAL/ONCOLOGICAL Hx Blood Disorders: No - INTEGUMENTARY Hx Dermatological Problems: No - MUSCULOSKELETAL/RHEUMATOLOGICAL Hx Musculoskeletal Disorders: No - GENITOURINARY/GYNECOLOGICAL Hx Genitourinary Disorders: No - PSYCHIATRIC Hx Anxiety: No Hx Bipolar Disorder: No Hx Depression: No Hx Paranoia: No Hx Post Traumatic Stress Disorder: No Hx Schizophrenia: No - SURGICAL HISTORY Hx Surgeries: No - ANESTHESIA Hx Anesthesia: No Meds Allergies/Adverse Reactions: Allergies Allergy/AdvReac Type Severity Reaction Status Date / Time No Known Allergies Allergy Verified 08/22/16 09:18 - Medications Medications: Current Medications Acetaminophen (Tylenol 325mg Tab) 650 mg PO Q6 PRN PRN Reason: Pain, Mild (1-3) Acetaminophen (Tylenol 325mg Tab) 650 mg PO Q4 PRN PRN Reason: Headache Physical Exam - Constitutional Appears: No Acute Distress - Head Exam Head Exam: ATRAUMATIC, NORMOCEPHALIC - Eye Exam Eye Exam: EOMI Pupil Exam: PERRL Additional comments: pale conjunctiva - Respiratory Exam Respiratory Exam: Clear to Auscultation Bilateral, NORMAL BREATHING PATTERN - Cardiovascular Exam Cardiovascular Exam: REGULAR RHYTHM, +S1, +S2 - GI/Abdominal Exam GI & Abdominal Exam: Normal Bowel Sounds, Soft Additional comments: uterus enlarged, palpable. - Exam Exam: NORMAL INSPECTION External exam: NORMAL EXTERNAL EXAM Speculum exam: Vaginal Bleeding (thin, watery blood present in vaginal vault) Bimanual exam: Uterine Enlargement - Extremities Exam Extremities exam: Positive for: normal inspection - Neurological Exam Neurological exam: Alert, CN II-XII Intact, Oriented x3 - Psychiatric Exam Psychiatric exam: Normal Mood - Skin Skin Exam: Dry, Intact Results - Vital Signs Recent Vital Signs: Last Vital Signs Temp 98.1 F 02/07/17 15:55 Pulse 95 H 02/07/17 15:55 Resp 18 02/07/17 15:55 BP 103/61 02/07/17 15:55 Pulse Ox 100 02/07/17 15:55 - Labs Result Diagrams: 02/07/17 12:12 02/07/17 12:12 Labs: Laboratory Results - last 24 hr 02/07/17 02/07/17 02/07/17 12:12 12:12 12:12 WBC 9.3 RBC 2.08 L Hgb 6.0 L* D Hct 18.3 L MCV 88.1 D MCH 28.9 MCHC 32.8 L RDW 14.6 H Plt Count 395 MPV 7.5 Neut % (Auto) 75.4 H Lymph % (Auto) 18.1 L [place] % (Auto) 5.3 Eos % (Auto) 0.8 Baso % (Auto) 0.4 Neut # 7.0 Lymph # 1.7 [place] # 0.5 Eos # 0.1 Baso # 0.0 PT INR APTT Sodium 138 Potassium 4.0 Chloride 105 Carbon Dioxide 25 Anion Gap 12 BUN 10 Creatinine 0.5 L Est GFR ( Amer) > 60 Est GFR (Non-Af Amer) > 60 Random Glucose 107 H Calcium 8.5 Ferritin 10.4 Total Bilirubin 0.1 L AST 24 ALT 27 Alkaline Phosphatase 40 Total Protein 6.5 Albumin 3.5 Globulin 2.9 Albumin/Globulin Ratio 1.2 Beta HCG, Quant < 2.39 Blood Type A POSITIVE Antibody Screen Negative Crossmatch See Detail BBK History Checked Patient has bt 02/07/17 12:45 WBC RBC Hgb Hct MCV MCH MCHC RDW Plt Count MPV Neut % (Auto) Lymph % (Auto) [place] % (Auto) Eos % (Auto) Baso % (Auto) Neut # Lymph # [place] # Eos # Baso # PT 11.0 INR 1.0 APTT 29.8 Sodium Potassium Chloride Carbon Dioxide Anion Gap BUN Creatinine Est GFR ( Amer) Est GFR (Non-Af Amer) Random Glucose Calcium Ferritin Total Bilirubin AST ALT Alkaline Phosphatase Total Protein Albumin Globulin Albumin/Globulin Ratio Beta HCG, Quant Blood Type Antibody Screen Crossmatch BBK History Checked Assessment & Plan - Assessment and Plan (Free Text) Assessment: 36 yo F, with anemia, abnormal uterine bleeding, and R sided adnexal mass. Current bleeding episode is slowing down/resolving. Plan: Primary management by inpatient team Recommend to get MRI as inpatient if possible to do so; if not, encourage pt to get outpatient MRI as scheduled Follow up with primary OBGYN provider Dr. 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; options can include but aren't limited to OCP, Lysteda, IUD, hysterectomy <Renea Ventura - Last Filed: 02/07/17 17:41> Meds - Medications Medications: Current Medications Acetaminophen (Tylenol 325mg Tab) 650 mg PO Q6 PRN PRN Reason: Pain, Mild (1-3) Acetaminophen (Tylenol 325mg Tab) 650 mg PO Q4 PRN PRN Reason: Headache Results - Vital Signs Recent Vital Signs: Last Vital Signs Temp 98 F 02/07/17 17:00 Pulse 100 H 02/07/17 17:00 Resp 20 02/07/17 17:00 BP 98/64 L 02/07/17 17:00 Pulse Ox 100 02/07/17 17:00 - Labs Result Diagrams: 02/07/17 12:12 02/07/17 12:12 Labs: Laboratory Results - last 24 hr 02/07/17 02/07/17 02/07/17 12:12 12:12 12:12 WBC 9.3 RBC 2.08 L Hgb 6.0 L* D Hct 18.3 L MCV 88.1 D MCH 28.9 MCHC 32.8 L RDW 14.6 H Plt Count 395 MPV 7.5 Neut % (Auto) 75.4 H Lymph % (Auto) 18.1 L [place] % (Auto) 5.3 Eos % (Auto) 0.8 Baso % (Auto) 0.4 Neut # 7.0 Lymph # 1.7 [place] # 0.5 Eos # 0.1 Baso # 0.0 PT INR APTT Sodium 138 Potassium 4.0 Chloride 105 Carbon Dioxide 25 Anion Gap 12 BUN 10 Creatinine 0.5 L Est GFR ( Amer) > 60 Est GFR (Non-Af Amer) > 60 Random Glucose 107 H Calcium 8.5 Iron TIBC % Saturation Ferritin 10.4 Total Bilirubin 0.1 L AST 24 ALT 27 Alkaline Phosphatase 40 Total Protein 6.5 Albumin 3.5 Globulin 2.9 Albumin/Globulin Ratio 1.2 Beta HCG, Quant < 2.39 Blood Type A POSITIVE Antibody Screen Negative Crossmatch See Detail BBK History Checked Patient has bt 02/07/17 02/07/17 12:45 16:09 WBC RBC Hgb Hct MCV MCH MCHC RDW Plt Count MPV Neut % (Auto) Lymph % (Auto) [place] % (Auto) Eos % (Auto) Baso % (Auto) Neut # Lymph # [place] # Eos # Baso # PT 11.0 INR 1.0 APTT 29.8 Sodium Potassium Chloride Carbon Dioxide Anion Gap BUN Creatinine Est GFR ( Amer) Est GFR (Non-Af Amer) Random Glucose Calcium Iron < 10 L TIBC 245 L % Saturation 9 L Ferritin Total Bilirubin AST ALT Alkaline Phosphatase Total Protein Albumin Globulin Albumin/Globulin Ratio Beta HCG, Quant Blood Type Antibody Screen Crossmatch BBK History Checked
[2017-02-07] MEDS ORDERED: Influenza Vaccine 18yr & older 0.5 ML/45 MCG SYR IM ONE (17:54)
[2017-02-08 04:16] LABS: BASO # 0.1 K/uL (0.0-0.2); BASO % 0.6 % (0.0-2.0); EOS # 0.1 K/uL (0.0-0.7); EOS % 1.6 % (0.0-4.0); HEMATOCRIT 26.1 % (34.0-47.0); LYMPH # 2.1 K/uL (1.0-4.3); MEAN CORPUSCULAR HEMOGLOBIN 29.8 pg (27.0-31.0); MEAN CORPUSCULAR HGB CONC 33.9 g/dL (33.0-37.0); MEAN PLATELET VOLUME 7.1 fl (7.2-11.7); MONO # 0.7 K/uL (0.0-0.8); MONO % 7.6 % (0.0-10.0); NEUT # 6.3 K/uL (1.8-7.0); NEUT % 67.2 % (50.0-75.0); NRBC % 0.1 % (0.0-0.0); RED CELL DISTRIBUTION WIDTH 14.4 % (11.5-14.5); WHITE BLOOD COUNT 9.3 K/uL (4.8-10.8)
[2017-02-08 07:33] VITALS: BP 99/64; PULSE 88; RESP 18; TEMP 97.7; O2SAT 96
[2017-02-08] MEDS ORDERED: Gadodiamide 287 MG/ML VIAL (15ML) IV ONE (11:33)
--- NOTE | 2017-02-08 12:29 | CP.PCM.DIS ---
Provider - Provider Date of Admission: 02/07/17 13:11 Attending physician: Nancy Gay MD Primary care physician: [facility]. Has appointment with Dr. Castillo on 02/12/17 Consults: Dr. Ventura Time Spent in preparation of Discharge (in minutes): 30 Diagnosis - Discharge Diagnosis (1) Abnormal uterine bleeding (AUB) Status: Acute (2) Iron deficiency anemia Status: Acute Hospital Course - Lab Results Lab Results: Most Recent Lab Values WBC 9.3 K/uL (4.8-10.8) 02/08/17 04:00 RBC 2.96 Mil/uL (3.80-5.20) L 02/08/17 04:00 Hgb 8.8 g/dL (12.0-16.0) L D 02/08/17 04:00 Hct 26.1 % (34.0-47.0) L 02/08/17 04:00 MCV 88.0 fl (81.0-99.0) 02/08/17 04:00 MCH 29.8 pg (27.0-31.0) 02/08/17 04:00 MCHC 33.9 g/dL (33.0-37.0) 02/08/17 04:00 RDW 14.4 % (11.5-14.5) 02/08/17 04:00 Plt Count 324 K/uL (130-400) 02/08/17 04:00 MPV 7.1 fl (7.2-11.7) L 02/08/17 04:00 Neut % (Auto) 67.2 % (50.0-75.0) 02/08/17 04:00 Lymph % (Auto) 23.0 % (20.0-40.0) 02/08/17 04:00 [place] % (Auto) 7.6 % (0.0-10.0) 02/08/17 04:00 Eos % (Auto) 1.6 % (0.0-4.0) 02/08/17 04:00 Baso % (Auto) 0.6 % (0.0-2.0) 02/08/17 04:00 Neut # 6.3 K/uL (1.8-7.0) 02/08/17 04:00 Lymph # 2.1 K/uL (1.0-4.3) 02/08/17 04:00 [place] # 0.7 K/uL (0.0-0.8) 02/08/17 04:00 Eos # 0.1 K/uL (0.0-0.7) 02/08/17 04:00 Baso # 0.1 K/uL (0.0-0.2) 02/08/17 04:00 PT 11.0 Seconds (9.8-13.1) 02/07/17 12:45 INR 1.0 (0.9-1.2) 02/07/17 12:45 APTT 29.8 Seconds (25.6-37.1) 02/07/17 12:45 Sodium 138 mmol/l (132-148) 02/07/17 12:12 Potassium 4.0 MMOL/L (3.6-5.0) 02/07/17 12:12 Chloride 105 mmol/L (98-107) 02/07/17 12:12 Carbon Dioxide 25 mmol/L (22-30) 02/07/17 12:12 Anion Gap 12 (10-20) 02/07/17 12:12 BUN 10 mg/dl (7-17) 02/07/17 12:12 Creatinine 0.5 mg/dl (0.7-1.2) L 02/07/17 12:12 Est GFR ( Amer) > 60 02/07/17 12:12 Est GFR (Non-Af Amer) > 60 02/07/17 12:12 Random Glucose 107 mg/dL (65-105) H 02/07/17 12:12 Calcium 8.5 mg/dL (8.4-10.2) 02/07/17 12:12 Iron < 10 ug/dL (37-170) L 02/07/17 16:09 TIBC 245 ug/dL (250-450) L 02/07/17 16:09 % Saturation 9 % (20-55) L 02/07/17 16:09 Ferritin 10.4 ng/Ml (6.24-137.0) 02/07/17 12:12 Total Bilirubin 0.1 mg/dl (0.2-1.3) L 02/07/17 12:12 AST 24 U/L (14-36) 02/07/17 12:12 ALT 27 U/L (9-52) 02/07/17 12:12 Alkaline Phosphatase 40 U/L (38-126) 02/07/17 12:12 Total Protein 6.5 G/DL (6.3-8.2) 02/07/17 12:12 Albumin 3.5 g/dL (3.5-5.0) 02/07/17 12:12 Globulin 2.9 gm/dL (2.2-3.9) 02/07/17 12:12 Albumin/Globulin Ratio 1.2 (1.0-2.1) 02/07/17 12:12 Beta HCG, Quant < 2.39 mIU/mL 02/07/17 12:12 Blood Type A POSITIVE 02/07/17 12:12 Antibody Screen Negative 02/07/17 12:12 Crossmatch See Detail 02/07/17 12:12 BBK History Checked Patient has bt 02/07/17 12:12 - Hospital Course Hospital Course: 36 yo pmhx anemia and left ovarian cyst s/p left ovanian cystectomy w/ left salphingo-oophrectomy in 08/2016 admitted to [facility] for symptomatic anemia and AUB. Pt's hemoglobin on admission was 6.0 and after 2 units of PRBC, Hb was 8.8. Pt denies any fatigue, palpitation, headache or dizziness today. Pt had MRI of pelvis done today and to be f/u in outpatient. Pt was discharged with feosol 325 mg po tid, vitamin c 100 mg po daily and colace 200 mg po daily. Pt has schedule with Dr. Camarena on 02/09/[address] Castillo on 02/12/17. - Date & Time of H&P Date of H&P: 02/08/17 Time of H&P: 09:40 Discharge Exam - Head Exam Head Exam: ATRAUMATIC, NORMAL INSPECTION, NORMOCEPHALIC - ENT Exam ENT Exam: Mucous Membranes Moist - Neck Exam Neck exam: Full Rom, Normal Inspection - Respiratory Exam Respiratory Exam: Clear to PA & Lateral, NORMAL BREATHING PATTERN. absent: Rhonchi, Wheezes - Cardiovascular Exam Cardiovascular Exam: REGULAR RHYTHM, RRR, +S1, +S2 - GI/Abdominal Exam GI & Abdominal Exam: Normal Bowel Sounds, Soft. absent: Tenderness - Extremities Exam Extremities exam: normal capillary refill - Neurological Exam Neurological exam: Alert, Oriented x3 - Psychiatric Exam Psychiatric exam: Normal Affect, Normal Mood Discharge Plan - Discharge Medications Prescriptions: Ascorbic Acid [Vitamin C] 100 mg PO DAILY #30 tablet Ascorbic Acid [Vitamin C] 100 mg PO DAILY 30 Days #30 tablet Docusate [Colace] 200 mg PO QPM 30 Days #60 cap Docusate Sodium [Colace] 200 mg PO QPM #60 capsule Ferrous Sulfate [Ferosul] 325 mg PO TID #90 tablet - Follow Up Plan Condition: STABLE Disposition: HOME/ ROUTINE Instructions: Ovarian Cyst (DC), Iron Rich Diet (DC), Anemia (DC) Additional Instructions: follow up with Dr Chance tomorrow 02/09/17 @ 3:30pm [facility]. Referrals: Renea Ventura MD [Staff Provider] - Nancy Gay MD [Provisional Staff] -
--- NOTE | 2017-02-08 14:29 | MRI ---
PROCEDURE: MRI pelvis with and without contrast HISTORY: ovarian cyst, abn uterine bleeding COMPARISON: Comparison is made to the previous MRI study dated 08/22/2016 previous ultrasound dated 01/12/2017. TECHNIQUE: Multiplanar, multi sequence MR images of the pelvis were obtained following administration of intravenous gadolinium contrast. FINDINGS: UTERUS: The uterus is anteverted enlarged measures 13.3 centimeter in the largest longitudinal diameter 6.4 centimeter in the largest AP diameter and 12.2 centimeter in the largest transverse diameter. Myometrium: That my material is markedly heterogeneous contains foci of hyperintense T2 signal particularly at the anterior fundal, fundus and entire posterior uterine wall. Endometrium: Endometrium is homogeneous with normal thickness. Junctional zone: The junctional zone is not clearly visualized. Cervix: Small cysts are noted at the cervix likely benign nabothian cyst. Vagina: Unremarkable. Fibroids: No evidence of discrete fibroids OVARIES/ ADNEXA: Right ovary: The right ovary is enlarged contains multiple large cystic lesions. The largest lesion demonstrate diffuse hyperintense T1 signal measures 5.4 x 4.5 centimeter and contains fluid fluid level likely represent hemorrhagic cyst. There is adjacent tubular cystic structure may represent right hydrosalpinx. Previously seen large hyperintense T1 and T2 signal lesion extending from the right pelvis to the left lower abdomen has resolved since the previous exam and also likely represent large hemorrhagic cyst. Left ovary: Measures 2.7 x 2.6 centimeter contains prominent cyst measures 1.8 centimeter. The left ovary has decreased in size since the previous exam. Fallopian tubes: Suspicious for right-sided hydrosalpinx. No evidence of left-sided hydrosalpinx. BOWEL: Partially visualized rectosigmoid colon is grossly unremarkable. LYMPH NODES: No lymphadenopathy. BLADDER: The urinary bladder is displaced inferiorly by the enlarged uterus. FREE FLUID: None. PELVIC BONES: Grossly unremarkable. OTHER FINDINGS: None. IMPRESSION: Moderately enlarged markedly heterogeneous uterus again noted. Scattered cystic/ glands noted at the endometrium particularly at the anterior fundal, fundus and entire posterior wall. The junctional zone is not clearly visualized. Findings highly suspicious for adenomyosis involving the anterior fundal fundus and entire posterior wall and sparing the mid and lower anterior wall. No evidence of discrete fibroids. Large hyperintense T1 cyst at the right adnexa contains fluid/ fluid level likely represents hemorrhagic cyst. The possibility of endometrioma is less likely. Suspicious for right sided hydrosalpinx. Interval resolving of the previously seen large hyperintense T1 lesion extending from the right posterior pelvis to the left lower abdomen since the previous exam likely represent hemorrhagic cyst. Slightly prominent left adnexa contains prominent follicles measures 1.9 centimeter.
== END 2017-02-08 15:35 | disposition home or self-care (01) ==
LOC: H.ER 11:21 → H.ERHOLD 13:11 → H.MEDSURG1 15:55
PROVIDERS: ADMIT Family Medicine; ATTEND Family Medicine
DX: N92.1 Excessive and frequent menstruation with irregular cycle (principal); D50.9 Iron deficiency anemia, unspecified; N83.9 Noninflammatory disorder of ovary, fallopian tube and broad ligament, unspecified; N85.2 Hypertrophy of uterus; N83.202 Unspecified ovarian cyst, left side; R00.0 Tachycardia, unspecified; R00.2 Palpitations; Z23 Encounter for immunization
CPT/HCPCS: 36415; 36430; 72197; 80053; 82728; 83540; 83550; 84702; 85025; 85610; 85730; 86850; 86900; 86920; 90471; 99285; A9579; G0378; J1756; P9051; Q2035

== ENCOUNTER 2017-02-28 10:13 | Emergency (ER) | payer SELFPAY ==
[2017-02-28 10:17] VITALS: BMI 20.2
[2017-02-28 10:19] VITALS: BP 109/77; PULSE 100; TEMP 97.9
--- NOTE | 2017-02-28 10:47 | ED PDOC ---
HPI: General Adult Time Seen by Provider: 02/28/17 10:47 Chief Complaint (Nursing): Abdominal Pain Chief Complaint (Provider): back pain, abd pain History Per: Patient Additional Complaint(s): 36 year old female presents to ED with lower back pain and abdominal pain. Patient states she is status post endometrial biopsy on February 22. Patient states initially after the procedure she did not have bleeding but started to bleed on February 26. Patient states she believes this bleeding is related to her period. She takes control pills daily and usually starts her period on the of the month. Patient took advil earlier but this did not help her pain. She states she is changing her pad every 4 hrs and her current bleeding is typical of her usual cycle bleeding. She rates pain as 5/10. No associated fever or chills. Past Medical History Reviewed: Historical Data, Nursing Documentation, Vital Signs Vital Signs: Last Vital Signs Temp 97.9 F 02/28/17 10:17 Pulse 100 H 02/28/17 10:17 Resp 17 02/28/17 10:17 BP 109/77 02/28/17 10:17 Pulse Ox 100 02/28/17 12:15 - Medical History PMH: Anemia - Surgical History Other surgeries: endometrial biopsy - Family History Family History: States: No Known Family Hx - Living Arrangements Living Arrangements: With Family - Social History Current smoker - smoking cessation education provided: No Alcohol: None Drugs: Denies - Home Medications Home Medications: Ambulatory Orders Medication Instructions Recorded Ascorbic Acid [Vitamin C] 100 mg PO DAILY 30 Days #30 tablet 02/08/17 Ferrous Sulfate [Ferosul] 325 mg PO TID #90 tablet 02/08/17 Docusate [Colace] 200 mg PO BID 02/28/17 - Allergies Allergies/Adverse Reactions: Allergies Allergy/AdvReac Type Severity Reaction Status Date / Time No Known Allergies Allergy Verified 02/28/17 10:43 Review of Systems ROS Statement: Except As Marked, All Systems Reviewed And Found Negative Constitutional: Negative for: Fever Cardiovascular: Negative for: Chest Pain Respiratory: Negative for: Cough Gastrointestinal: Positive for: Abdominal Pain. Negative for: Nausea, Vomiting Genitourinary Female: Positive for: Vaginal Bleeding. Negative for: Dysuria, Frequency, Vaginal Discharge Physical Exam - Reviewed Nursing Documentation Reviewed: Yes Vital Signs Reviewed: Yes - Physical Exam Appears: Positive for: Well, Non-toxic, No Acute Distress Skin: Negative for: Rash Eye Exam: Positive for: Normal appearance Cardiovascular/Chest: Positive for: Regular Rate, Rhythm Respiratory: Positive for: Normal Breath Sounds Gastrointestinal/Abdominal: Positive for: Soft. Negative for: Tenderness, Distended, Guarding, Rebound Pelvic Exam: Positive for: Other (Active bleeding noted from closed cervical os , no CMT, no adnexal tenderness bilaterally) Back: Negative for: L CVA Tenderness, R CVA Tenderness Extremity: Positive for: Normal ROM Neurologic/Psych: Positive for: Alert, Oriented - Laboratory Results Result Diagrams: 02/28/17 11:38 12 11:38 Urine POC: Negative Urine dip results: Positive for: Blood (moderate). Negative for: Leukocyte Esterase, Nitrate, Ketones, Glucose, Bilirubin, Protein - ECG O2 Sat by Pulse Oximetry: 100 Pulse Ox Interpretation: Normal Medical Decision Making Medical Decision Makin36 year old with vaginal bleeding Plan: IVF CBC CMP UA and culture PO tylenol Patient states the pain is resolved completely after Tylenol dose was given. Patient is aware of all diagnostic testing results, all questions answered. Hemoglobin is stable at 11.6 White count of 19.6 is noted. Patient denies any fever, chills, body aches. She is afebrile with stable vital signs. Patient was instructed to alternate Tylenol and Motrin for pain control, she was advised to follow-up with [employer] [facility] in 2-3 days. Disposition - Clinical Impression Clinical Impression: Dysmenorrhea - Patient ED Disposition Is Patient to be Admitted: No Counseled Patient/Family Regarding: Studies Performed, Diagnosis, Need For Followup - Disposition Referrals: Shaneka Koroma MD [Family Provider] - Disposition: Routine/Home Disposition Time: 13:46 Condition: STABLE Additional Instructions: Alternate Tylenol every 4 hours and Advil every 6 hours for pain control. Follow up next week with Dr. Koroma or return any time to ED if acutely worse. Instructions: Dysmenorrhea (ED) Forms: [employer] ([place]) Results - Lab Results Lab Results: 02/28/17 02/28/17 02/28/17 12:15 11:38 11:38 WBC RBC Hgb Hct MCV MCH MCHC RDW Plt Count MPV Neut % (Auto) Lymph % (Auto) [place] % (Auto) Eos % (Auto) Baso % (Auto) Neut # Lymph # [place] # Eos # Baso # Neutrophils % (Manual) Band Neutrophils % Lymphocytes % (Manual) Monocytes % (Manual) Platelet Estimate Large Platelets Hypochromasia (manual) Anisocytosis (manual) Sodium 133 Potassium 4.0 Chloride 103 Carbon Dioxide 22 Anion Gap 12 BUN 7 Creatinine 0.6 L Est GFR ( Amer) > 60 Est GFR (Non-Af Amer) > 60 Random Glucose 129 H Calcium 9.4 Total Bilirubin 0.7 AST 31 ALT 25 Alkaline Phosphatase 54 Total Protein 7.3 Albumin 3.9 Globulin 3.4 Albumin/Globulin Ratio 1.2 Urine Color Yellow Urine Clarity Slighty-cloudy Urine pH 5.0 Ur Specific [place] 1.011 Urine Protein 30 Urine Glucose (UA) 150 Urine Ketones Trace Urine Blood Moderate Urine Nitrate Negative Urine Bilirubin Negative Urine Urobilinogen 0.2-1.0 Ur Leukocyte Esterase Neg Urine RBC (Auto) 43 H Urine Microscopic WBC 3 Ur Squamous Epith Cells 1 Urine Bacteria Rare Blood Type A POSITIVE Antibody Screen Negative BBK History Checked Patient has bt 02/28/17 11:38 WBC 19.6 H D RBC 3.61 L Hgb 10.6 L Hct 33.4 L MCV 92.7 D MCH 29.5 MCHC 31.9 L RDW 15.5 H Plt Count 192 D MPV 8.2 Neut % (Auto) 90.3 H Lymph % (Auto) 3.0 L [place] % (Auto) 6.0 Eos % (Auto) 0.4 Baso % (Auto) 0.3 Neut # 17.7 H Lymph # 0.6 L [place] # 1.2 H Eos # 0.1 Baso # 0.1 Neutrophils % (Manual) 85 H Band Neutrophils % 7 H Lymphocytes % (Manual) 3 L Monocytes % (Manual) 5 Platelet Estimate Normal Large Platelets Present Hypochromasia (manual) Slight Anisocytosis (manual) Moderate Sodium Potassium Chloride Carbon Dioxide Anion Gap BUN Creatinine Est GFR ( Amer) Est GFR (Non-Af Amer) Random Glucose Calcium Total Bilirubin AST ALT Alkaline Phosphatase Total Protein Albumin Globulin Albumin/Globulin Ratio Urine Color Urine Clarity Urine pH Ur Specific [place] Urine Protein Urine Glucose (UA) Urine Ketones Urine Blood Urine Nitrate Urine Bilirubin Urine Urobilinogen Ur Leukocyte Esterase Urine RBC (Auto) Urine Microscopic WBC Ur Squamous Epith Cells Urine Bacteria Blood Type Antibody Screen BBK History Checked
[2017-02-28] MEDS ORDERED: Sodium Chloride 0.9% 1,000 ML IV STA (11:31)
[2017-02-28 12:02] LABS: BASO # 0.1 K/uL (0.0-0.2); BASO % 0.3 % (0.0-2.0); EOS # 0.1 K/uL (0.0-0.7); EOS % 0.4 % (0.0-4.0); HEMATOCRIT 33.4 % (34.0-47.0); LYMPH # 0.6 K/uL (1.0-4.3); MEAN CELL VOLUME 92.7 fl (81.0-99.0); MEAN CORPUSCULAR HEMOGLOBIN 29.5 pg (27.0-31.0); MEAN CORPUSCULAR HGB CONC 31.9 g/dL (33.0-37.0); MEAN PLATELET VOLUME 8.2 fl (7.2-11.7); MONO # 1.2 K/uL (0.0-0.8); NEUT # 17.7 K/uL (1.8-7.0); NEUT % 90.3 % (50.0-75.0); PLATELET COUNT 192 K/uL (130-400); RED CELL DISTRIBUTION WIDTH 15.5 % (11.5-14.5); WHITE BLOOD COUNT 19.6 K/uL (4.8-10.8)
[2017-02-28 12:29] LABS: RBC URINE 43 /hpf (0-3); URINE BACTERIA RARE (<OCC); URINE BILIRUBIN NEGATIVE (NEGATIVE); URINE BLOOD MODERATE (NEGATIVE); URINE COLOR YELLOW (YELLOW); URINE GLUCOSE (UA) 150 mg/dL (Normal); URINE KETONE TRACE mg/dL (NEGATIVE); URINE LEUKOCYTE ESTERASE NEG Leu/uL (Negative); URINE PROTEIN 30 mg/dL (NEGATIVE); URINE UROBILINOGEN 0.2-1.0 mg/dL (0.2-1.0); WBC URINE 3 /hpf (0-5)
[2017-02-28 12:33] LABS: ALB/GLOB RATIO 1.2 (1.0-2.1); ALKALINE PHOSPHATASE 54 U/L (38-126); ALT/SGPT 25 U/L (9-52); AST/SGOT 31 U/L (14-36); BILIRUBIN,TOTAL 0.7 mg/dl (0.2-1.3); BLOOD UREA NITROGEN 7 mg/dl (7-17); CALCIUM 9.4 mg/dL (8.4-10.2); CARBON DIOXIDE 22 mmol/L (22-30); CHLORIDE 103 mmol/L (98-107); GFR AFRICAN-AMERICAN > 60; GLUCOSE,RANDOM 129 mg/dL (65-105); SODIUM 133 mmol/l (132-148); TOTAL PROTEIN 7.3 G/DL (6.3-8.2)
[2017-02-28 12:49] LABS: NEUTROPHIL 85 % (42-75); TOTAL CELLS COUNTED 100
[2017-02-28 12:50] LABS: LARGE PLATELETS PRESENT
[2017-02-28 13:54] VITALS: RESP 18; O2SAT 99
== END 2017-02-28 14:01 | disposition home or self-care (01) ==
LOC: H.ER 10:13
DX: N94.6 Dysmenorrhea, unspecified (principal)
CPT/HCPCS: 80053; 81003; 81025; 85025; 86850; 86900; 87086; 99283; J7040

== ENCOUNTER 2017-03-05 10:50 | Inpatient (IN) | payer SELFPAY ==
[2017-03-05 10:52] VITALS: BMI 27.3
[2017-03-05] MEDS ORDERED: Sodium Chloride 0.9% 1,000 ML IV STA (11:18)
--- NOTE | 2017-03-05 11:18 | ED PDOC ---
HPI: Back Chief Complaint (Provider): back pain History Per: Patient History/Exam Limitations: no limitations Onset/Duration Of Symptoms: Days Current Symptoms Are (Timing): Still Present Quality Of Discomfort: "Pain" Associated Symptoms: Other (vaginal bleeding) Additional Complaint(s): 36 y/o F with Hx of ovarian cyst removal about 6 months ago and irregular menstrual periods who underwent endometrial biopsy 2 weeks ago, presents to ED, referred from Clinic with c/o lower back pain for 1 week. Patient was at the ED 5 days ago with similar complain, blood work showed elevated WBC and patient was DC home after pain resolved with NSAIDs and advised to f/u with [employer]. She has f/u ap with Dr Camarena on 03/09/17. She states pain is persistent and that her irregular bleeding is still present. Denies vomiting, fever, pelvic pain, vaginal discharge, diarrhea, dysuria. Back pain radiates to R/thigh. Denies urinary retention or urinary incontinence. She is on OCPs. <Waldo Beaulieu - Last Filed: 03/05/17 11:41> <Yogi Hernandez - Last Filed: 03/05/17 14:29> Time Seen by Provider: 03/05/17 11:14 Chief Complaint (Nursing): Back Pain Past Medical History Reviewed: Historical Data, Vital Signs Vital Signs: Last Vital Signs Temp 98.2 F 03/05/17 10:53 Pulse 106 H 03/05/17 10:53 Resp 17 03/05/17 10:53 BP 129/81 03/05/17 10:53 Pulse Ox 100 03/05/17 10:53 - Medical History PMH: Anemia Denies: Anxiety, Bipolar Disorder, Depression, Paranoia, Post Traumatic Stress Disorder, Chronic Kidney Disease, Schizophrenia - Surgical History Other surgeries: Ovarian cyst - Family History Family History: States: Unknown Family Hx <Waldo Beaulieu - Last Filed: 03/05/17 11:41> Vital Signs: Last Vital Signs Temp 98.2 F 03/05/17 10:53 Pulse 106 H 03/05/17 10:53 Resp 17 03/05/17 10:53 BP 129/81 03/05/17 10:53 Pulse Ox 100 03/05/17 11:41 <Yogi Hernandez - Last Filed: 03/05/17 14:29> - Home Medications Home Medications: Ambulatory Orders Medication Instructions Recorded Ascorbic Acid [Vitamin C] 100 mg PO DAILY 30 Days #30 tablet 02/08/17 Ferrous Sulfate [Ferosul] 325 mg PO TID #90 tablet 02/08/17 Docusate [Colace] 200 mg PO BID 02/28/17 - Allergies Allergies/Adverse Reactions: Allergies Allergy/AdvReac Type Severity Reaction Status Date / Time No Known Allergies Allergy Verified 03/05/17 12:11 Supervising Attending Note - Supervising Attending Note The Documented history was done by the: Physician Territory Sales Professional The documented physical exam was done by the: Physician Territory Sales Professional The documented procedures were done by the: Physician Territory Sales Professional - Attestation: I have personally seen and examined this patient.: Yes I have fully participated in the care of the patient.: Yes I have reviewed all pertinent clinical information: Yes - Notes: Notes:: Pelvic and abd pain R. Vaginal bleeding. No dizziness or weakness. <Yogi Hernandez - Last Filed: 03/05/17 14:29> Review of Systems ROS Statement: Except As Marked, All Systems Reviewed And Found Negative Genitourinary Female: Positive for: Vaginal Bleeding Musculoskeletal: Positive for: Back Pain <Waldo Beaulieu - Last Filed: 03/05/17 11:41> Physical Exam - Physical Exam Appears: Positive for: Non-toxic, No Acute Distress Skin: Positive for: Normal Color, Warm Eye Exam: Positive for: Normal appearance, EOMI, PERRL Neck: Positive for: Painless ROM Cardiovascular/Chest: Positive for: Regular Rate, Rhythm. Negative for: Gallop , Murmur Respiratory: Positive for: Normal Breath Sounds. Negative for: Crackles, Wheezing, Respiratory Distress Gastrointestinal/Abdominal: Positive for: Soft. Negative for: Tenderness, Distended, Rebound Back: Positive for: Normal Inspection. Negative for: L CVA Tenderness, R CVA Tenderness, Vertebral Tenderness, Muscle Spasm Extremity: Negative for: Tenderness, Pedal Edema, Swelling Neurologic/Psych: Positive for: Alert, Oriented. Negative for: Motor/Sensory Deficits <Waldo Beaulieu - Last Filed: 03/05/17 11:41> - Physical Exam Cardiovascular/Chest: Positive for: Regular Rate, Rhythm Respiratory: Positive for: Normal Breath Sounds Gastrointestinal/Abdominal: Positive for: Tenderness (RLQ) <Yogi Hernandez - Last Filed: 03/05/17 14:29> - ECG O2 Sat by Pulse Oximetry: 100 <Waldo Beaulieu - Last Filed: 03/05/17 11:41> - Laboratory Results Result Diagrams: 03/05/17 11:53 03/05/17 11:53 Interpretation Of Abn Labs: 8 hg - ECG Pulse Ox Interpretation: Normal - CT Scan/US CT Other Rad Studies (CT/US): Read By Radiologist Other Rad Interpretation: cystic pelvic mass R - Progress ED Course And Treament: 1427: Hg drop 2 points in 5 days. Also mass on R causing hydroureter. Will admit to [facility] resident. He will consult obgyn as needed. Stable. AAOx3. <Yogi Hernandez - Last Filed: 03/05/17 14:29> Medical Decision Making Medical Decision Makin36 y/o F presents with lower back pain for 1 week and vaginal bleeding R/O kidney stones vs UTI R/o Acute anemia CBC, CMP, UA, CT abd pelvis Toradol IV fluids <Waldo Beaulieu - Last Filed: 03/05/17 11:41> Disposition <Walod Beaulieu - Last Filed: 03/05/17 11:41> - Patient ED Disposition Is Patient to be Admitted: Yes Counseled Patient/Family Regarding: Studies Performed, Diagnosis - Disposition Disposition Time: 14:28 - Pt Status Changed To: Hospital Disposition Of: Observation - POA Present On Arrival: None <Yogi Hernandez - Last Filed: 03/05/17 14:29> - Clinical Impression Clinical Impression: Pelvic mass, Anemia - Disposition Condition: FAIR
[2017-03-05 12:22] LABS: BASO % 0.4 % (0.0-2.0); EOS % 0.3 % (0.0-4.0); HEMATOCRIT 23.9 % (34.0-47.0); LYMPH # 0.9 K/uL (1.0-4.3); LYMPH % 9.1 % (20.0-40.0); MEAN CELL VOLUME 90.3 fl (81.0-99.0); MEAN CORPUSCULAR HEMOGLOBIN 30.3 pg (27.0-31.0); MEAN CORPUSCULAR HGB CONC 33.5 g/dL (33.0-37.0); MEAN PLATELET VOLUME 7.1 fl (7.2-11.7); MONO # 0.6 K/uL (0.0-0.8); NEUT # 8.3 K/uL (1.8-7.0); NEUT % 84.2 % (50.0-75.0); PLATELET COUNT 314 K/uL (130-400); RED CELL DISTRIBUTION WIDTH 15.1 % (11.5-14.5); WHITE BLOOD COUNT 9.9 K/uL (4.8-10.8)
[2017-03-05 12:48] LABS: ALKALINE PHOSPHATASE 118 U/L (38-126); ALT/SGPT 51 U/L (9-52); AST/SGOT 33 U/L (14-36); BILIRUBIN,TOTAL 0.1 mg/dl (0.2-1.3); BLOOD UREA NITROGEN 6 mg/dl (7-17); CALCIUM 8.3 mg/dL (8.4-10.2); CARBON DIOXIDE 25 mmol/L (22-30); CHLORIDE 107 mmol/L (98-107); GFR AFRICAN-AMERICAN > 60; GLUCOSE,RANDOM 118 mg/dL (65-105); POTASSIUM 3.7 MMOL/L (3.6-5.0); SODIUM 140 mmol/l (132-148); TOTAL PROTEIN 6.8 G/DL (6.3-8.2)
[2017-03-05 13:13] LABS: BASOPHIL 1 % (0-2); EOSINOPHIL 2 % (0-7); NEUTROPHIL 85 % (42-75); TOTAL CELLS COUNTED 100
[2017-03-05 13:15] LABS: LARGE PLATELETS PRESENT
--- NOTE | 2017-03-05 13:22 | CT ---
PROCEDURE: CT Abdomen and Pelvis without intravenous contrast HISTORY: R/O stone COMPARISON: 02/08/2017 MRI pelvis. Summary of findings on the comparison examination: Moderately enlarged markedly heterogeneous uterus. 01/12/2017 pelvic ultrasound. Summary of findings on the comparison examination: Enlarged uterus with heterogeneous myometrium with cystic changes which may represent adenomyomatosis. 4.7 x 5.1 x 5.8 cm complex cystic lesion right ovary with echogenic solid component. TECHNIQUE: Unenhanced study. Neither oral nor intravenous contrast administered. Radiation dose: Total exam DLP = 24.63 mGy-cm. This CT exam was performed using one or more of the following dose reduction techniques: Automated exposure control, adjustment of the mA and/or kV according to patient size, and/or use of iterative reconstruction technique. FINDINGS: LOWER THORAX: Unremarkable. LIVER: Unremarkable. No gross lesion or ductal dilatation. GALLBLADDER AND BILE DUCTS: Cholelithiasis without CT evidence of acute cholecystitis. PANCREAS: Unremarkable. No gross lesion or ductal dilatation. SPLEEN: Unremarkable. ADRENALS: Unremarkable. No mass. KIDNEYS AND URETERS: Right kidney: The right collecting system and ureter are dilated, the ureters displaced laterally by the large pelvic masses. There is no evidence of ureteral calculus or ureteral calculus. Unremarkable. No hydronephrosis. No solid mass. VASCULATURE: Unremarkable. No aortic aneurysm. BOWEL: Unremarkable. No obstruction. No gross mural thickening. APPENDIX: No abnormalities to suggest acute appendicitis. No right lower quadrant inflammatory processes identified. PERITONEUM: Unremarkable. No free fluid. No free air. LYMPH NODES: Small retroperitoneal -very PA aortic lymph nodes the preponderance of which are 1 cm and less. Etiology, significance is uncertain. BLADDER: Unremarkable. REPRODUCTIVE: Markedly enlarged uterus. The uterus measures approximately 7.1 x 14.6 cm. Adjacent to the uterus, posteriorly and laterally on the right is a complex solid and cystic mass 5.1 x 6.7 x 8.3 cm. Mean Hounsfield unit values 38.2. This is poorly delineated based on modality an the absence of intravenous contrast. BONES: No acute fracture. OTHER FINDINGS: None. IMPRESSION: Right hydroureter, hydronephrosis without evidence of obstructing lesion, calculus disease. Markedly enlarged uterus, cystic pelvic mass. These findings were better visualized on prior MRI of the pelvis and ultrasound. Cholelithiasis without CT evidence of acute cholecystitis.
--- NOTE | 2017-03-05 17:04 | CP.PCM.HP ---
History of Present Illness - History of Present Illness History of Present Illness: 36 YO F w/ h/o ovarian cyst removal 6 months ago, LMP on 02/26/17 presented with right sided lower back pain radiating to his right thigh. Pain is currently controlled with medication and is 4/10. When she initially came in, it was 10/10 as per patient. She has also started to to have vaginal bleeding again on Wednesday, states she changes every hour however is not fully saturated. Patient has been taking NSAIDS which have not been controlling her pain. - Patient was here 5 days ago for similar back pain. Her Hb at that time was was 10.6 today has dropped down to 8.0. Patient denies palpatation, dizziness. - Patient had 2 units transfusion on 02/07/17. - Endometrial biopsy was done recently which did not show any dysplasia or malignancy. - Patient has no history of breast cancer, stroke, coagulation problems. 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 Endometiral biopsy : Negative. Surgical Hx: left cystectomy, left salpingoophorectomy (08/[address] Jo) Family Hx: denies Medications: none Allergies: NKDA Present on Admission - Present on Admission Any Indicators Present on Admission: No Review of Systems - Review of Systems All systems: reviewed and no additional remarkable complaints except Past Patient History - Infectious Disease Hx of Infectious Diseases: None - Past Medical History & Family History Past Medical History?: No - Past Social History Smoking Status: Never Smoked - CARDIAC Hx Cardiac Disorders: No - PULMONARY Hx Respiratory Disorders: No - NEUROLOGICAL Hx Neurological Disorder: No - HEENT Hx HEENT Problems: No - RENAL Hx Chronic Kidney Disease: No - ENDOCRINE/METABOLIC Hx Endocrine Disorders: No - HEMATOLOGICAL/ONCOLOGICAL Hx Blood Disorders: Yes (ANEMIA) - INTEGUMENTARY Hx Dermatological Problems: No - MUSCULOSKELETAL/RHEUMATOLOGICAL Hx Musculoskeletal Disorders: No - GASTROINTESTINAL Hx Gastrointestinal Disorders: Yes Hx Constipation: Yes - GENITOURINARY/GYNECOLOGICAL Hx Genitourinary Disorders: No - PSYCHIATRIC Hx Psychophysiologic Disorder: No - SURGICAL HISTORY Hx Surgeries: Yes Other/Comment: left ovary removal. endometrial biopsy - ANESTHESIA Hx Anesthesia: Yes Hx Anesthesia Reactions: No Hx Malignant Hyperthermia: No Meds Allergies/Adverse Reactions: Allergies Allergy/AdvReac Type Severity Reaction Status Date / Time No Known Allergies Allergy Verified 03/05/17 12:11 Physical Exam - Constitutional Appears: No Acute Distress - Head Exam Head Exam: NORMAL INSPECTION - Respiratory Exam Respiratory Exam: Clear to Auscultation Bilateral, NORMAL BREATHING PATTERN. absent: Rhonchi, Wheezes - Cardiovascular Exam Cardiovascular Exam: REGULAR RHYTHM, +S1, +S2 - GI/Abdominal Exam GI & Abdominal Exam: Normal Bowel Sounds, Soft. absent: Tenderness - Exam Speculum exam: Vaginal Bleeding (female chaparone) - Neurological Exam Neurological exam: Alert, Normal Gait, Oriented x3 - Skin Skin Exam: Normal Color, Warm Additional comments: Breast exam WNL B/L : No masses noted - Results - Vital Signs Recent Vital Signs: Last Vital Signs Temp 98.2 F 03/05/17 16:18 Pulse 100 H 03/05/17 16:18 Resp 18 03/05/17 16:18 BP 103/67 03/05/17 16:18 Pulse Ox 100 03/05/17 16:18 - Labs Result Diagrams: 03/05/17 11:53 03/05/17 11:53 Labs: Laboratory Results - last 24 hr 03/05/17 03/05/17 11:53 11:53 WBC 9.9 RBC 2.64 L Hgb 8.0 L D Hct 23.9 L MCV 90.3 D MCH 30.3 MCHC 33.5 RDW 15.1 H Plt Count 314 D MPV 7.1 L Neut % (Auto) 84.2 H Lymph % (Auto) 9.1 L [place] % (Auto) 6.0 Eos % (Auto) 0.3 Baso % (Auto) 0.4 Neut # 8.3 H Lymph # 0.9 L [place] # 0.6 Eos # 0.0 Baso # 0.0 Neutrophils % (Manual) 85 H Lymphocytes % (Manual) 7 L Monocytes % (Manual) 5 Eosinophils % (Manual) 2 Basophils % (Manual) 1 Platelet Estimate Normal Large Platelets Present Anisocytosis (manual) Slight Microcytosis (manual) Slight Tear Drop Cells Slight Ovalocytes Slight Sodium 140 Potassium 3.7 Chloride 107 Carbon Dioxide 25 Anion Gap 12 BUN 6 L Creatinine 0.6 L Est GFR ( Amer) > 60 Est GFR (Non-Af Amer) > 60 Random Glucose 118 H Calcium 8.3 L Total Bilirubin 0.1 L AST 33 ALT 51 Alkaline Phosphatase 118 Total Protein 6.8 Albumin 3.4 L Globulin 3.3 Albumin/Globulin Ratio 1.0 Assessment & Plan - Assessment and Plan (Free Text) Assessment: 36 YO F w/ h/o menorhagia, irregular menstrual bleeding and anemia secondary to blood loss presented to the ED with right lower back pain. 1) Menorrhagia: - 2 units PRBC being transfused. Patients Hb is 8.0 - 25 mg IV Estrogen Q6 - Repeat CBC in the AM - OBGYN consulted - PAin medications ordered - (02/07/17)MRI of pelvis: Moderately enlarged marked heterogeneous uterus. Large right adenxa cyst w/ fluid. Suspicious right sided hydrosalpinx. - (03/05/17) CT pelvis: Right hydroureter, hydronephrosis without evidence of obstructing lesion, calculus disease. 2) Right lower back pain - CT pelvis: Right hydroureter, hydronephrosis without evidence of obstructing lesion, calculous disease. - Follow up w/ U/A and and urine culture 3. DVT prophlaxis - Lovenox 40 SC
--- NOTE | 2017-03-05 18:53 | CP.PCM.CON ---
<Royal Rain - Last Filed: 03/05/17 19:12> History of Present Illness - History of Present Illness History of Present Illness: 36 y/o F was consulted to [employer]OY[employer] TRAIN[employer] services due to persistent vaginal bleeding and anemia. Pt has a PMHx of L ovarian endometrioma which was found on 08/22/16 , Exploratory laparotomy and left salpingoophorectomy was performed on . Pt has been evaluated and managed by Dr Camarena at the [facility], endometrial biopsy performed on 02/22/17, results pending. Pt has a Hx of being transfused with 2 pRBC units on 02/07/17 due to symptomatic anemia (H/H : 6.0/18.3). Pt takes Ortho Novum, ferrous sulfate, vitamin C and Colace. She has f/u ap with Dr Camarena on 03/09/17. -Pt presented today at ER complaining of lower back pain that began 1 week ago. Pt reports vaginal spotting and bleeding frequently. She reports having vaginal bleeding since 2 days ago, changing pads every hour without saturating pads. Pt still desires to have children. - Pt denies vomiting, fever, pelvic pain, vaginal discharge, diarrhea, dysuria, urinary retention or urinary incontinence. Review of Systems - Constitutional Constitutional: absent: Chills, Fever, Night Sweats - EENT Eyes: absent: Blurred Vision, Change in Vision - Cardiovascular Cardiovascular: absent: Chest Pain - Respiratory Respiratory: absent: Dyspnea - Genitourinary Genitourinary: absent: Change in Urinary Stream, Difficulty Urinating, Dysuria, Urinary Incontinence, Urinary Frequency, Freq UTI, Hx Renal/Bladder Calculi - Reproductive: Female Reproductive:Female: Abnormal Vaginal Bleeding. absent: Vaginal Discharge, Vaginal Dryness, Vaginal Pruritis Past Patient History - Infectious Disease Hx of Infectious Diseases: None - Past Medical History & Family History Past Medical History?: No - Past Social History Smoking Status: Never Smoked - CARDIAC Hx Cardiac Disorders: No - PULMONARY Hx Respiratory Disorders: No - NEUROLOGICAL Hx Neurological Disorder: No - HEENT Hx HEENT Problems: No - RENAL Hx Chronic Kidney Disease: No - ENDOCRINE/METABOLIC Hx Endocrine Disorders: No - HEMATOLOGICAL/ONCOLOGICAL Hx Blood Disorders: Yes (ANEMIA) - INTEGUMENTARY Hx Dermatological Problems: No - MUSCULOSKELETAL/RHEUMATOLOGICAL Hx Musculoskeletal Disorders: No - GASTROINTESTINAL Hx Gastrointestinal Disorders: Yes Hx Constipation: Yes - GENITOURINARY/GYNECOLOGICAL Hx Genitourinary Disorders: No - PSYCHIATRIC Hx Psychophysiologic Disorder: No - SURGICAL HISTORY Hx Surgeries: Yes Other/Comment: left ovary removal. endometrial biopsy - ANESTHESIA Hx Anesthesia: Yes Hx Anesthesia Reactions: No Hx Malignant Hyperthermia: No Meds Allergies/Adverse Reactions: Allergies Allergy/AdvReac Type Severity Reaction Status Date / Time No Known Allergies Allergy Verified 03/05/17 12:11 - Medications Medications: Current Medications Ascorbic Acid (Vitamin C 250 Mg Tab) 250 mg PO DAILY [facility] Docusate Sodium (Colace) 200 mg PO HS [facility] Estrogens Conjugated (Premarin Iv) 25 mg IV Q6 [facility] Ferrous Sulfate (Feosol) 325 mg PO TID [facility] Last Admin: 03/05/17 17:03 Dose: 325 mg Ketorolac Tromethamine (Toradol) 15 mg IVP Q6 PRN PRN Reason: Pain, moderate (4-7) Last Admin: 03/05/17 17:02 Dose: 15 mg Morphine Sulfate (Morphine) 2 mg IVP Q6 PRN PRN Reason: Pain, severe (8-10) Physical Exam - Constitutional Appears: Well, No Acute Distress - Head Exam Head Exam: ATRAUMATIC, NORMAL INSPECTION, NORMOCEPHALIC - Eye Exam Eye Exam: EOMI, Normal appearance, PERRL - Neck Exam Neck exam: Positive for: Full Rom. Negative for: Meningismus - Respiratory Exam Respiratory Exam: NORMAL BREATHING PATTERN - Exam Speculum exam: absent: NORMAL SPECULUM EXAM (Blood present on vaginal vault, Cervix closed and non-tender. ) Results - Vital Signs Recent Vital Signs: Last Vital Signs Temp 98.2 F 03/05/17 16:18 Pulse 100 H 03/05/17 16:18 Resp 18 03/05/17 16:18 BP 103/67 03/05/17 16:18 Pulse Ox 100 03/05/17 16:18 - Labs Result Diagrams: 03/05/17 11:53 03/05/17 11:53 Labs: Laboratory Results - last 24 hr 03/05/17 03/05/17 11:53 11:53 WBC 9.9 RBC 2.64 L Hgb 8.0 L D Hct 23.9 L MCV 90.3 D MCH 30.3 MCHC 33.5 RDW 15.1 H Plt Count 314 D MPV 7.1 L Neut % (Auto) 84.2 H Lymph % (Auto) 9.1 L [place] % (Auto) 6.0 Eos % (Auto) 0.3 Baso % (Auto) 0.4 Neut # 8.3 H Lymph # 0.9 L [place] # 0.6 Eos # 0.0 Baso # 0.0 Neutrophils % (Manual) 85 H Lymphocytes % (Manual) 7 L Monocytes % (Manual) 5 Eosinophils % (Manual) 2 Basophils % (Manual) 1 Platelet Estimate Normal Large Platelets Present Anisocytosis (manual) Slight Microcytosis (manual) Slight Tear Drop Cells Slight Ovalocytes Slight Sodium 140 Potassium 3.7 Chloride 107 Carbon Dioxide 25 Anion Gap 12 BUN 6 L Creatinine 0.6 L Est GFR ( Amer) > 60 Est GFR (Non-Af Amer) > 60 Random Glucose 118 H Calcium 8.3 L Total Bilirubin 0.1 L AST 33 ALT 51 Alkaline Phosphatase 118 Total Protein 6.8 Albumin 3.4 L Globulin 3.3 Albumin/Globulin Ratio 1.0 Assessment & Plan - Assessment and Plan (Free Text) Assessment: 36 y/o F with Menorrhagia, Hx of endometrioma, Right ovarian cyst, s/p left salpingoopherectomy. - IV Premarin initiated. - Continue pain and medical management as per hospistalist team. - Evaluate possibility of Uterine Artery Embolization despite pt's desire for fertility. - F/U with Dr Camarena on 03/09/17. - Date & Time Date: 03/05/17 Time: 19:02 <Jaleel Birch - Last Filed: 03/06/17 17:58> Meds - Medications Medications: Current Medications Ascorbic Acid (Vitamin C 250 Mg Tab) 250 mg PO DAILY [facility] Last Admin: 03/06/17 08:26 Dose: 250 mg Enoxaparin Sodium (Lovenox) 40 mg SC DAILY@1830 [facility] PRN Reason: Protocol Last Admin: 03/05/17 19:00 Dose: 40 mg Ferrous Sulfate (Feosol) 325 mg PO TID [facility] Last Admin: 03/06/17 16:36 Dose: 325 mg Ketorolac Tromethamine (Toradol) 15 mg IVP Q8 [facility] Last Admin: 03/06/17 16:58 Dose: 15 mg Ketorolac Tromethamine (Toradol) 15 mg IVP Q6 PRN PRN Reason: Pain, moderate (4-7) Last Admin: 03/06/17 12:56 Dose: 15 mg Lidocaine (Lidoderm) 2 ea TD DAILY [facility] Magnesium Hydroxide (Milk Of Magnesia) 30 ml PO DAILY [facility] Morphine Sulfate (Morphine) 2 mg IVP Q4 PRN PRN Reason: Pain, severe (8-10) Ondansetron HCl (Zofran Inj) 4 mg IVP Q6 PRN PRN Reason: Nausea/Vomiting Senna/Docusate Sodium (Senokot S 50 Mg-8.6 Mg) 2 tab PO HS [facility] Results - Vital Signs Recent Vital Signs: Last Vital Signs Temp 98.3 F 03/06/17 16:05 Pulse 87 03/06/17 16:05 Resp 18 03/06/17 16:05 BP 99/61 L 03/06/17 16:05 Pulse Ox 100 03/06/17 16:05 - Labs Result Diagrams: 03/06/17 14:46 03/05/17 11:53 Labs: Laboratory Results - last 24 hr 03/05/17 03/05/17 03/05/17 04:45 06:50 06:50 WBC RBC Hgb Hct MCV MCH MCHC RDW Plt Count Retic Count 1.0 Urine Color Yellow Urine Clarity Clear Urine pH 6.0 Ur Specific [place] 1.010 Urine Protein Negative Urine Glucose (UA) Neg Urine Ketones Negative Urine Blood Large Urine Nitrate Negative Urine Bilirubin Negative Urine Urobilinogen 0.2-1.0 Ur Leukocyte Esterase Neg Urine RBC (Auto) 31 H Urine Microscopic WBC 1 Ur Squamous Epith Cells < 1 Blood Type A POSITIVE Antibody Screen Negative Crossmatch See Detail BBK History Checked Patient has bt 03/06/17 14:46 WBC 12.8 H RBC 3.56 L Hgb 10.4 L D Hct 32.0 L MCV 89.8 MCH 29.3 MCHC 32.6 L RDW 15.4 H Plt Count 392 Retic Count Urine Color Urine Clarity Urine pH Ur Specific [place] Urine Protein Urine Glucose (UA) Urine Ketones Urine Blood Urine Nitrate Urine Bilirubin Urine Urobilinogen Ur Leukocyte Esterase Urine RBC (Auto) Urine Microscopic WBC Ur Squamous Epith Cells Blood Type Antibody Screen Crossmatch BBK History Checked Assessment & Plan - Assessment and Plan (Free Text) Plan: OB Hospitalist on-call. Pt seen with Dr Jaquez and Dr Rain. Case discussed. Medical condition discussed with pt. She understands evaluation and treatment options - medical/surgical. Will given Premarin to stop VB. Currently no signs of acute abdomen. She has follow up with primary PATROL INSPECTOR next week. Re-consult if needed
[2017-03-05] MEDS: Enoxaparin 40 mg Syringe SC SCH (19:00)
[2017-03-05] MEDS ORDERED: Sterile Water 20 ML IV ONE (21:10)
[2017-03-06 06:10] LABS: RBC URINE 31 /hpf (0-3); URINE BILIRUBIN NEGATIVE (NEGATIVE); URINE BLOOD LARGE (NEGATIVE); URINE COLOR YELLOW (YELLOW); URINE GLUCOSE (UA) NEG (Normal); URINE KETONE NEGATIVE (NEGATIVE); URINE LEUKOCYTE ESTERASE NEG Leu/uL (Negative); URINE PROTEIN NEGATIVE (NEGATIVE); URINE UROBILINOGEN 0.2-1.0 mg/dL (0.2-1.0); WBC URINE 1 /hpf (0-5)
--- NOTE | 2017-03-06 10:05 | CP.PCM.PN ---
Subjective - Date & Time of Evaluation Date of Evaluation: 03/06/17 Time of Evaluation: 10:05 - Subjective Subjective: 37 YO F w/ F is seen at bedside. Slept well overnight. Pain is controlled with medication, however the pain medication caused patient to have one episode of non bloody non billious vomiting. Currently states the pain is 5/10. Denies any palpatations, SOB, fever or chills. Has been urinating fine. Bleeding has stopped after being given the IV Esrogen. Objective - Vital Signs/Intake and Output Vital Signs (last 24 hours): Temp Pulse Resp BP Pulse Ox 97.9 F 79 18 105/67 100 03/06/17 08:08 03/06/17 08:08 03/06/17 08:08 03/06/17 08:08 03/06/17 08:08 - Medications Medications: Current Medications Ascorbic Acid (Vitamin C 250 Mg Tab) 250 mg PO DAILY [facility] Last Admin: 03/06/17 08:26 Dose: 250 mg Docusate Sodium (Colace) 200 mg PO HS [facility] Last Admin: 03/05/17 21:22 Dose: 200 mg Enoxaparin Sodium (Lovenox) 40 mg SC DAILY@1830 [facility] PRN Reason: Protocol Last Admin: 03/05/17 19:00 Dose: 40 mg Estrogens Conjugated (Premarin Iv) 25 mg IV Q6 [facility] Last Admin: 03/06/17 03:48 Dose: 25 mg Ferrous Sulfate (Feosol) 325 mg PO TID [facility] Last Admin: 03/06/17 08:26 Dose: 325 mg Ketorolac Tromethamine (Toradol) 15 mg IVP Q6 PRN PRN Reason: Pain, moderate (4-7) Last Admin: 03/06/17 06:12 Dose: 15 mg Morphine Sulfate (Morphine) 2 mg IVP Q6 PRN PRN Reason: Pain, severe (8-10) Last Admin: 03/05/17 22:46 Dose: 2 mg Ondansetron HCl (Zofran Inj) 4 mg IVP Q6 PRN PRN Reason: Nausea/Vomiting - Labs Labs: 03/05/17 11:53 03/05/17 11:53 - Constitutional Appears: No Acute Distress - Respiratory Exam Respiratory Exam: Clear to Ausculation Bilateral, NORMAL BREATHING PATTERN. absent: Rhonchi, Wheezes - GI/Abdominal Exam GI & Abdominal Exam: Soft, Normal Bowel Sounds. absent: Tenderness - Neurological Exam Neurological Exam: Alert, Awake, CN II-XII Intact, Oriented x3 - Skin Skin Exam: Normal Color, Warm Assessment and Plan - Assessment and Plan (Free Text) Assessment: 36 YO F w/ h/o menorhagia, irregular menstrual bleeding and anemia secondary to blood loss presented to the ED with right lower back pain. 1) Menorrhagia: - Patient was transfused 2 units F/U with CBC - 25 mg IV Estrogen Q6 - Repeat CBC in the AM - OBGYN consulted - PAin medications ordered - (02/07/17)MRI of pelvis: Moderately enlarged marked heterogeneous uterus. Large right adenxa cyst w/ fluid. Suspicious right sided hydrosalpinx. - (03/05/17) CT pelvis: Right hydroureter, hydronephrosis without evidence of obstructing lesion, calculus disease. 2) Right lower back pain - CT pelvis w/o contrast: Right hydroureter, hydronephrosis without evidence of obstructing lesion, calculous disease. - CT w/ contrast abdomen and pelvis 3. DVT prophlaxis - Lovenox 40 SC
[2017-03-06] MEDS ORDERED: Iohexol 300 100 ML IJ ONE (12:44)
[2017-03-06] MEDS ORDERED: Lidocaine 5% Patch TD SCH ×2 (12:45→13:32)
--- NOTE | 2017-03-06 13:51 | CT ---
PROCEDURE: CT Abdomen and Pelvis with contrast HISTORY: right hydronephrosis w/ adenomyosis and fibroids COMPARISON: Unenhanced abdomen pelvis CT examination 03/05/2017. TECHNIQUE: Contrast dose: Omnipaque 300, 95 Radiation dose: Total exam DLP = mGy-cm. This CT exam was performed using one or more of the following dose reduction techniques: Automated exposure control, adjustment of the mA and/or kV according to patient size, and/or use of iterative reconstruction technique. FINDINGS: LOWER THORAX: Unremarkable. LIVER: Borderline enlarged liver. No focal hepatic mass or intrahepatic biliary dilatation. GALLBLADDER AND BILE DUCTS: Gallbladder is mildly distended with pericholecystic fluid collection appreciable. Clinically correlate for potential cholecystitis. PANCREAS: Unremarkable. No gross lesion or ductal dilatation. SPLEEN: Unremarkable. ADRENALS: Unremarkable. No mass. KIDNEYS AND URETERS: A tiny lucency seen the upper pole left kidney too small to characterize. No left hydronephrosis however. Mild right hydronephrosis is encountered as well as right hydroureter likely on the basis of an enlarged cyst in the right adnexal compartment and grossly enlarged uterus impinging the distal right ureter. No definitive radiodense urolithiasis identified bilaterally PE including the right ureter. No perinephric reaction appreciated bilaterally. VASCULATURE: Unremarkable. No aortic aneurysm. BOWEL: Unremarkable. No obstruction. No gross mural thickening. APPENDIX: Not identified. PERITONEUM: Trace ascites is appreciated in the pelvis LYMPH NODES: Unremarkable. No enlarged lymph nodes. BLADDER: Unremarkable. REPRODUCTIVE: Grossly enlarged inhomogeneous enhancing uterus which is nonspecific but it does not appeared discordant with MR diagnosis of fibroid uterine disease and adenomyosis. A right adnexal cyst measures 5.5 x 6.6 cm and appears complex and is better seen/ delineated in prior pelvis MRI 02/08/2017. It may have increased in size. BONES: No acute fracture. IMPRESSION: 1. Mild right hydronephrosis appears to of the basis of probable compression of the distal right ureter caused by grossly enlarged uterus as well as 6.6 cm right adnexal cyst. This cyst may have increased in size compared to prior pelvis MRI 02/08/2017. Further gynecological consultation is advised. 2. Limited pelvic ascites identified. 3. Lesser findings as discussed above.
[2017-03-06 14:54] LABS: MEAN CELL VOLUME 89.8 fl (81.0-99.0); MEAN CORPUSCULAR HEMOGLOBIN 29.3 pg (27.0-31.0); MEAN CORPUSCULAR HGB CONC 32.6 g/dL (33.0-37.0); RED CELL DISTRIBUTION WIDTH 15.4 % (11.5-14.5); WHITE BLOOD COUNT 12.8 K/uL (4.8-10.8)
[2017-03-06] MEDS: Enoxaparin 40 mg Syringe SC SCH (19:35)
[2017-03-06] MEDS ORDERED: Magnesium Hydroxide Susp 30 ml UD PO STA (20:46)
[2017-03-06] MEDS ORDERED: Docusate-Senna 50 mg-8.6 mg Tab PO SCH (22:00)
[2017-03-07 01:11] VITALS: O2SAT 99
[2017-03-07 08:26] VITALS: BP 104/67; PULSE 83; RESP 20; TEMP 98.3
[2017-03-07] MEDS ORDERED: Magnesium Hydroxide Susp 30 ml UD PO SCH (09:00)
--- NOTE | 2017-03-07 10:33 | CP.PCM.DIS ---
Provider - Provider Date of Admission: 03/06/17 09:57 Attending physician: Victorina Sandoval MD Primary care physician: [facility]- Dr. Peña Consults: OBGYN Time Spent in preparation of Discharge (in minutes): 30 Diagnosis - Discharge Diagnosis (1) Abnormal uterine bleeding (AUB) Status: Acute (2) Hydronephrosis, right Status: Acute Comment: likely due to enlarged uterus impinging on distal right ureter as seen on. CT Hospital Course - Lab Results Lab Results: Most Recent Lab Values WBC 12.8 K/uL (4.8-10.8) H 03/06/17 14:46 RBC 3.56 Mil/uL (3.80-5.20) L 03/06/17 14:46 Hgb 10.4 g/dL (12.0-16.0) L D 03/06/17 14:46 Hct 32.0 % (34.0-47.0) L 03/06/17 14:46 MCV 89.8 fl (81.0-99.0) 03/06/17 14:46 MCH 29.3 pg (27.0-31.0) 03/06/17 14:46 MCHC 32.6 g/dL (33.0-37.0) L 03/06/17 14:46 RDW 15.4 % (11.5-14.5) H 03/06/17 14:46 Plt Count 392 K/uL (130-400) 03/06/17 14:46 MPV 7.1 fl (7.2-11.7) L 03/05/17 11:53 Neut % (Auto) 84.2 % (50.0-75.0) H 03/05/17 11:53 Lymph % (Auto) 9.1 % (20.0-40.0) L 03/05/17 11:53 Clayton % (Auto) 6.0 % (0.0-10.0) 03/05/17 11:53 Eos % (Auto) 0.3 % (0.0-4.0) 03/05/17 11:53 Baso % (Auto) 0.4 % (0.0-2.0) 03/05/17 11:53 Neut # 8.3 K/uL (1.8-7.0) H 03/05/17 11:53 Lymph # 0.9 K/uL (1.0-4.3) L 03/05/17 11:53 Clayton # 0.6 K/uL (0.0-0.8) 03/05/17 11:53 Eos # 0.0 K/uL (0.0-0.7) 03/05/17 11:53 Baso # 0.0 K/uL (0.0-0.2) 03/05/17 11:53 Neutrophils % (Manual) 85 % (42-75) H 03/05/17 11:53 Lymphocytes % (Manual) 7 % (20-50) L 03/05/17 11:53 Monocytes % (Manual) 5 % (0-10) 03/05/17 11:53 Eosinophils % (Manual) 2 % (0-7) 03/05/17 11:53 Basophils % (Manual) 1 % (0-2) 03/05/17 11:53 Platelet Estimate Normal (NORMAL) 03/05/17 11:53 Large Platelets Present 03/05/17 11:53 Anisocytosis (manual) Slight 03/05/17 11:53 Microcytosis (manual) Slight 03/05/17 11:53 Tear Drop Cells Slight 03/05/17 11:53 Ovalocytes Slight 03/05/17 11:53 Retic Count 1.0 % (0.5-1.5) 03/05/17 06:50 Sodium 140 mmol/l (132-148) 03/05/17 11:53 Potassium 3.7 MMOL/L (3.6-5.0) 03/05/17 11:53 Chloride 107 mmol/L (98-107) 03/05/17 11:53 Carbon Dioxide 25 mmol/L (22-30) 03/05/17 11:53 Anion Gap 12 (10-20) 03/05/17 11:53 BUN 6 mg/dl (7-17) L 03/05/17 11:53 Creatinine 0.6 mg/dl (0.7-1.2) L 03/05/17 11:53 Est GFR ( Amer) > 60 03/05/17 11:53 Est GFR (Non-Af Amer) > 60 03/05/17 11:53 Random Glucose 118 mg/dL (65-105) H 03/05/17 11:53 Calcium 8.3 mg/dL (8.4-10.2) L 03/05/17 11:53 Total Bilirubin 0.1 mg/dl (0.2-1.3) L 03/05/17 11:53 AST 33 U/L (14-36) 03/05/17 11:53 ALT 51 U/L (9-52) 03/05/17 11:53 Alkaline Phosphatase 118 U/L (38-126) 03/05/17 11:53 Total Protein 6.8 G/DL (6.3-8.2) 03/05/17 11:53 Albumin 3.4 g/dL (3.5-5.0) L 03/05/17 11:53 Globulin 3.3 gm/dL (2.2-3.9) 03/05/17 11:53 Albumin/Globulin Ratio 1.0 (1.0-2.1) 03/05/17 11:53 Urine Color Yellow (YELLOW) 03/05/17 04:45 Urine Clarity Clear (Clear) 03/05/17 04:45 Urine pH 6.0 (5.0-8.0) 03/05/17 04:45 Ur Specific Lafferty 1.010 (1.003-1.030) 03/05/17 04:45 Urine Protein Negative mg/dL (NEGATIVE) 03/05/17 04:45 Urine Glucose (UA) Neg mg/dL (Normal) 03/05/17 04:45 Urine Ketones Negative mg/dL (NEGATIVE) 03/05/17 04:45 Urine Blood Large (NEGATIVE) 03/05/17 04:45 Urine Nitrate Negative (NEGATIVE) 03/05/17 04:45 Urine Bilirubin Negative (NEGATIVE) 03/05/17 04:45 Urine Urobilinogen 0.2-1.0 mg/dL (0.2-1.0) 03/05/17 04:45 Ur Leukocyte Esterase Neg Brandie/uL (Negative) 03/05/17 04:45 Urine RBC (Auto) 31 /hpf (0-3) H 03/05/17 04:45 Urine Microscopic WBC 1 /hpf (0-5) 03/05/17 04:45 Ur Squamous Epith Cells < 1 /hpf (0-5) 03/05/17 04:45 Blood Type A POSITIVE 03/05/17 06:50 Antibody Screen Negative 03/05/17 06:50 Crossmatch See Detail 03/05/17 06:50 BBK History Checked Patient has bt 03/05/17 06:50 - Hospital Course Hospital Course: 37yo F with hx abnormal uterine bleeding presented to ED and was admitted or lower back pain and AUB. She received 2U of PRBC due to Hgb of 8, change from 10.6 on 02/28/17. OBGYN was consulted, spoke with pt about her options for treatment being medical vs surgical, and advised followup at scheduled appt with primary OBGYN as scheduled on 03/09. Uterine bleeding was controlled with IV premarin and pt states that she now has mild spotting, but continued pain that is controlled with pain medications. She was also found to have right sided hydronephrosis and hydroureter with no obstruction on CT; hydronephrosis and hydroureter are likely due to large uterus impinging on right distal ureter. Spoke to [employer] Dr. Shetty in light of pt still having pain and CT findings, and was advised by him that pt is stable for discharge and can be followed up outpatient as per original consult. Discharge Exam - Head Exam Head Exam: ATRAUMATIC, NORMAL INSPECTION, NORMOCEPHALIC - Eye Exam Eye Exam: EOMI, Normal appearance Pupil Exam: PERRL - ENT Exam ENT Exam: Mucous Membranes Moist - Respiratory Exam Respiratory Exam: Clear to PA & Lateral, NORMAL BREATHING PATTERN - Cardiovascular Exam Cardiovascular Exam: REGULAR RHYTHM, +S1, +S2 - GI/Abdominal Exam GI & Abdominal Exam: Normal Bowel Sounds, Unremarkable - Extremities Exam Extremities exam: normal capillary refill, normal inspection - Back Exam Back exam: NORMAL INSPECTION - Neurological Exam Neurological exam: Alert, Oriented x3 - Skin Skin Exam: Dry, Intact, Normal Color, Warm Discharge Plan - Discharge Medications Prescriptions: Docusate Sodium/Sennosides A [Senokot S 50 MG-8.6 MG] 2 tab PO HS 30 Days tab Ferrous Sulfate [Ferosul] 325 mg PO TID #90 tablet Norethindrone-Ethinyl Estrad [Nortrel 1-35 28 Tablet] 1 tab PO DAILY 30 Days tablet - Follow Up Plan Condition: FAIR Disposition: HOME/ ROUTINE Additional Instructions: Please follow up with Dr. Peña at [facility] at your previously scheduled appointment on 03/09. Referrals: Shaneka Peña MD [Family Provider] -
[2017-03-07 11:26] LABS: HEMATOCRIT 33.3 % (34.0-47.0); MEAN CELL VOLUME 89.3 fl (81.0-99.0); MEAN CORPUSCULAR HEMOGLOBIN 29.2 pg (27.0-31.0); MEAN CORPUSCULAR HGB CONC 32.7 g/dL (33.0-37.0); RED CELL DISTRIBUTION WIDTH 14.7 % (11.5-14.5); WHITE BLOOD COUNT 11.2 K/uL (4.8-10.8)
[2017-03-07 11:29] LABS: BLOOD UREA NITROGEN 7 mg/dl (7-17); CALCIUM 8.5 mg/dL (8.4-10.2); CARBON DIOXIDE 28 mmol/L (22-30); CHLORIDE 105 mmol/L (98-107); GFR AFRICAN-AMERICAN > 60; GLUCOSE,RANDOM 86 mg/dL (65-105); SODIUM 141 mmol/l (132-148)
--- NOTE | 2017-03-07 12:58 | CP.PCM.PCO ---
Assessment/Plan - Assessment and Plan (Free Text) Assessment: I saw and evaluated the patient. I discussed the case with the resident and agree with the findings and plan as documented in the resident's note. Continues to have back pain Ct scan noted Had BM yesterday I called Dr Moore to eval the pt D/W Dr Shetty who evaluated the pt- he believes her pain/plan can be manages as outpt
== END 2017-03-07 14:52 | disposition home or self-care (01) | DRG 369 ==
LOC: H.ER 10:50 → INTOOBSV 14:29 → H.ERHOLD 14:29 → H.MEDSURG1 16:04 → OBSVTOIN 03-06 09:57
PROVIDERS: ADMIT Family Medicine Geriatric Medicine; ATTEND Family Medicine Geriatric Medicine
PROC: 30233N1 Transfusion of Nonautologous Red Blood Cells into Peripheral Vein, Percutaneous Approach (ICD-10-PCS; principal; 2017-03-06)
DX: N93.9 Abnormal uterine and vaginal bleeding, unspecified (principal); N13.30 Unspecified hydronephrosis; N85.2 Hypertrophy of uterus; N92.0 Excessive and frequent menstruation with regular cycle; D50.0 Iron deficiency anemia secondary to blood loss (chronic); N83.201 Unspecified ovarian cyst, right side

== ENCOUNTER 2017-03-11 10:42 | Emergency (ER) | payer SELFPAY ==
[2017-03-11 10:42] VITALS: BMI 27.3
[2017-03-11 11:31] VITALS: RESP 17; O2SAT 98
[2017-03-11] MEDS ORDERED: Morphine 4 MG/ML VIAL IV ONE (12:03)
--- NOTE | 2017-03-11 12:19 | ED PDOC ---
HPI: Back Time Seen by Provider: 03/11/17 10:45 Chief Complaint (Nursing): Back Pain Chief Complaint (Provider): Right Lower Back Pain History Per: Patient History/Exam Limitations: no limitations Onset/Duration Of Symptoms: Days Current Symptoms Are (Timing): Still Present Quality Of Discomfort: "Pain" Associated Symptoms: None Additional Complaint(s): Dikr Carmichael, a 37 year old female, with a past medical history of of ovarian cyst presents to the ED complaining of right lower back pain. 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 Patient states that she has been taking motrin and tramadol with no relief. Denies fever and vomiting. Of note: Patient has had similar pain in the past. PMD: Dr. Fair Past Medical History Reviewed: Historical Data, Nursing Documentation, Vital Signs Vital Signs: Last Vital Signs Temp Pulse 88 03/11/17 11:28 Resp 17 03/11/17 11:28 BP Pulse Ox 98 03/11/17 11:28 - Medical History PMH: Anemia Denies: Anxiety, Bipolar Disorder, Depression, HIV, Paranoia, Post Traumatic Stress Disorder, Chronic Kidney Disease, Schizophrenia - Surgical History Other surgeries: left saplingectomy - Family History Family History: States: Unknown Family Hx - Living Arrangements Living Arrangements: Alone - Social History Current smoker - smoking cessation education provided: No Ex-Smoker (has not smoked in the last 12 months): No Alcohol: None Drugs: Denies - Home Medications Home Medications: Ambulatory Orders Medication Instructions Recorded Docusate [Colace] 200 mg PO HS 02/28/17 Ascorbic Acid [Vitamin C 250 mg 250 mg PO DAILY 03/05/17 Tab] Docusate Sodium/Sennosides A 2 tab PO HS 30 Days tab 03/07/17 [Senokot S 50 MG-8.6 MG] Ferrous Sulfate [Ferosul] 325 mg PO TID #90 tablet 03/07/17 Norethindrone-Ethinyl Estrad 1 tab PO DAILY 30 Days tablet 03/07/17 [Nortrel 1-35 28 Tablet] Docusate [Colace] 100 mg PO BID PRN #10 cap 03/11/17 oxyCODONE/Acetaminophen [Percocet 1 tab PO Q6H PRN #5 tab 03/11/17 5/325 mg Tab] - Allergies Allergies/Adverse Reactions: Allergies Allergy/AdvReac Type Severity Reaction Status Date / Time No Known Allergies Allergy Verified 03/05/17 12:11 Review of Systems ROS Statement: Except As Marked, All Systems Reviewed And Found Negative Constitutional: Negative for: Fever Gastrointestinal: Negative for: Vomiting Musculoskeletal: Positive for: Back Pain (right lower back pain) Physical Exam - Reviewed Nursing Documentation Reviewed: Yes Vital Signs Reviewed: Yes - Physical Exam Appears: Positive for: Non-toxic, No Acute Distress Head Exam: Positive for: ATRAUMATIC, NORMAL INSPECTION, NORMOCEPHALIC Skin: Positive for: Normal Color, Warm, Dry. Negative for: Rash Eye Exam: Positive for: Normal appearance, EOMI, PERRL. Negative for: Nystagmus ENT: Positive for: Normal ENT Inspection. Negative for: Nasal Congestion, Tonsillar Exudate, Tonsillar Swelling Neck: Positive for: Normal, Painless ROM, Supple Cardiovascular/Chest: Positive for: Regular Rate, Rhythm, Chest Non Tender. Negative for: Tachycardia Respiratory: Positive for: Normal Breath Sounds. Negative for: Wheezing, Respiratory Distress Gastrointestinal/Abdominal: Positive for: Normal Exam, Bowel Sounds, Soft. Negative for: Tenderness, Mass, Guarding, Rebound Back: Positive for: Normal Inspection. Negative for: L CVA Tenderness, R CVA Tenderness Extremity: Positive for: Normal ROM. Negative for: Tenderness, Deformity, Swelling Neurologic/Psych: Positive for: Alert, Oriented, Gait - Laboratory Results Result Diagrams: 03/11/17 12:24 03/11/17 12:24 - ECG O2 Sat by Pulse Oximetry: 98 (RA) Pulse Ox Interpretation: Normal Medical Decision Making Medical Decision Makin Initial Impression 37 y/o female presenting with back pain Initial Plan: * CMP * CBC * Morphine * Reevaluation Patient's previous charts were reviewed which show she was admitted on 03/07 for abnormal uterine bleeding, lower back pain and was also transfused. At this time she was also found to have hydronephrosis and hydroureter. Patient had an endometrial biopsy performed which showed no malignancy. Charts also show that the patient had a left saplingectomy 6 months ago. 1421 * Increased LFTs noted in comparison to a week ago. * CT Abd & Pelvis w/o contrast * Reevaluation 1620 CT Abd & Pelvis w/o contrast Findings: Impression: Persistent right hydroureteronephrosis caused by compression of this stool right ureter likely from an enlarged uterus and a right large right cystic adnexal lesion better depicted on prior contrast abdomen and pelvis CT examination 03/06/2017. No interval improvement is appreciated at this time. Lack of contrast agents in the current study limits interpretation. Upon provider reevaluation patient is feeling better, is medically stable, and requires no further treatment in the ED at this time. Patient will be discharged with Rx for Percocet and Colace. Counseling was provided and all questions were answered regarding diagnosis and need for follow up with PMD/ clinic where she gets her follow up. There is agreement to discharge plan. Return if symptoms persist or worsen. Scribe Attestation Documented by Carine Patel acting as a scribe for Joseph Devine MD. Provider Attestation All medical record entries made by the Scribe were at my direction and personally dictated by me. I have reviewed the chart and agree that the record accurately reflects my personal performance of the history, physical exam, medical decision making, and the department course for this patient. I have also personally directed, reviewed, and agree with the discharge instructions and disposition. Disposition - Clinical Impression Clinical Impression: Back pain, Pelvic mass - Patient ED Disposition Is Patient to be Admitted: No Counseled Patient/Family Regarding: Studies Performed - Disposition Referrals: [facility] [Outside] [facility] [Outside] Disposition: Routine/Home Disposition Time: 12:00 Condition: IMPROVED Additional Instructions: follow up with Dr maddox your photo lab specialist. return to the ED with any worsening or concerning symptoms Prescriptions: Docusate [Colace] 100 mg PO BID PRN #10 cap PRN Reason: Constipation oxyCODONE/Acetaminophen [Percocet 5/325 mg Tab] 1 tab PO Q6H PRN #5 tab PRN Reason: Pain, Moderate (4-7) Instructions: Chronic Back Pain (ED) Forms: [email or web address] ([place]) - POA Present On Arrival: None
[2017-03-11] MEDS ORDERED: Morphine 4 MG/ML VIAL ONE (12:26)
[2017-03-11 12:28] LABS: BASO % 0.3 % (0.0-2.0); EOS # 0.1 K/uL (0.0-0.7); EOS % 1.1 % (0.0-4.0); HEMATOCRIT 35.3 % (34.0-47.0); LYMPH # 1.1 K/uL (1.0-4.3); LYMPH % 8.2 % (20.0-40.0); MEAN CELL VOLUME 89.4 fl (81.0-99.0); MEAN CORPUSCULAR HEMOGLOBIN 29.5 pg (27.0-31.0); MEAN PLATELET VOLUME 6.9 fl (7.2-11.7); MONO # 0.5 K/uL (0.0-0.8); NEUT # 11.5 K/uL (1.8-7.0); NEUT % 86.4 % (50.0-75.0); NRBC % 0.1 % (0.0-0.0); PLATELET COUNT 530 K/uL (130-400); RED CELL DISTRIBUTION WIDTH 15.1 % (11.5-14.5); WHITE BLOOD COUNT 13.3 K/uL (4.8-10.8)
[2017-03-11 12:59] LABS: BASOPHIL 1 % (0-2); EOSINOPHIL 1 % (0-7); NEUTROPHIL 88 % (42-75); TOTAL CELLS COUNTED 100
[2017-03-11 13:09] LABS: ALB/GLOB RATIO 1.1 (1.0-2.1); ALKALINE PHOSPHATASE 142 U/L (38-126); ALT/SGPT 142 U/L (9-52); AST/SGOT 81 U/L (14-36); BILIRUBIN,TOTAL 0.3 mg/dl (0.2-1.3); BLOOD UREA NITROGEN 5 mg/dl (7-17); CALCIUM 9.5 mg/dL (8.4-10.2); CARBON DIOXIDE 24 mmol/L (22-30); CHLORIDE 104 mmol/L (98-107); GFR AFRICAN-AMERICAN > 60; GLUCOSE,RANDOM 83 mg/dL (65-105); POTASSIUM 4.3 MMOL/L (3.6-5.0); SODIUM 139 mmol/l (132-148); TOTAL PROTEIN 7.7 G/DL (6.3-8.2)
--- NOTE | 2017-03-11 16:21 | CT ---
PROCEDURE: CT Abdomen and Pelvis without intravenous contrast HISTORY: elevated lfts flank pain COMPARISON: Unenhanced abdomen pelvis CT exam dated 03/06/2017. TECHNIQUE: Helical CT of the abdomen and pelvis was performed without oral or intravenous contrast as per referring physician request. Contrast Dose: None Radiation dose: Total exam DLP = 294.64 mGy-cm. This CT exam was performed using one or more of the following dose reduction techniques: Automated exposure control, adjustment of the mA and/or kV according to patient size, and/or use of iterative reconstruction technique. FINDINGS: LOWER THORAX: Unremarkable. LIVER: Prominent nonfocal liver appears stable in appearance. GALLBLADDER AND BILE DUCTS: Moderate gallbladder distention is appreciate with cholelithiasis layering in the dependent portion. No pericholecystic fluid collection or significant mural thickening appreciated at this time. PANCREAS: Unremarkable. No gross lesion or ductal dilatation. SPLEEN: Unremarkable. ADRENALS: Unremarkable. No mass. KIDNEYS AND URETERS: Persistent moderate right hydroureteronephrosis appreciate without radiodense urolithiasis identified. Prior enlarged uterus as well large right accessible adnexal complex cyst or even soft tissue lesion appear to compress the distal right ureter resulting in the right hydroureteronephrosis. No left-sided obstructive uropathy is grossly evident. VASCULATURE: Unremarkable. No aortic aneurysm. BOWEL: Unremarkable. No obstruction. No gross mural thickening. APPENDIX: Not identified. PERITONEUM: Limited fluid is seen in the pelvis but no abdominal ascites is identified. No free intraperitoneal gas. LYMPH NODES: No gross lymphadenopathy. Lack of contrast agents limits identification of the lymph nodes. BLADDER: Unremarkable. REPRODUCTIVE: Ill defined right adnexal lesion previously demonstrated to appear is a large complex cystic mass. BONES: No acute fracture. OTHER FINDINGS: None. IMPRESSION: Persistent right hydroureteronephrosis caused by compression of this stool right ureter likely from an enlarged uterus and a right large right cystic adnexal lesion better depicted on prior contrast abdomen and pelvis CT examination 03/06/2017. No interval improvement is appreciated at this time. Lack of contrast agents in the current study limits interpretation. Cholelithiasis.
[2017-03-11 17:18] VITALS: BP 126/78; PULSE 78; TEMP 97
== END 2017-03-11 16:50 | disposition home or self-care (01) ==
LOC: H.ER 10:42
DX: K80.20 Calculus of gallbladder without cholecystitis without obstruction (principal); R19.00 Intra-abdominal and pelvic swelling, mass and lump, unspecified site
CPT/HCPCS: 74176; 80053; 81025; 85025; 99281; J2270

== ENCOUNTER 2017-05-28 11:19 | Observation (INO) | payer SELFPAY ==
[2017-05-28 11:20] VITALS: BMI 27.3
--- NOTE | 2017-05-28 12:43 | ED PDOC ---
HPI: Female Pain Additional Complaint(s): 37 YO F w/ h/o ovarian cyst removal 8 months ago, LMP on Apr 2017 presented vaginal bleeding for the past week. She has been saturating one pad every two hours. Denies any pelvic or abdominal pain. Patient has had two transfusion in the past year. One transfusion in January and one transfusion in February. - Denies dizziness, palpitation, nausea vomiting. Has not been sexually active. - Endometrial biopsy was done in February which did not show any dysplasia or malignancy. - Patient has no history of breast cancer, stroke, coagulation problems. - Patient was refered to [facility] for further treatment. She was unable to apply for the [facility] care there because she lost her passport. 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 Endometiral biopsy : Negative. Surgical Hx: left cystectomy, left salpingoophorectomy (08/[address] Jo) Family Hx: denies Medications: Patient takes iron 3 times a day Allergies: NKDA <Sy Jaquez - Last Filed: 05/28/17 13:00> <Cecilia Hutchins - Last Filed: 05/28/17 14:17> Chief Complaint (Nursing): Female Genitourinary Supervising Attending Note - Supervising Attending Note The Documented history was done by the: Physician Industrial Commercial Groundskeeper The documented physical exam was done by the: Physician Industrial Commercial Groundskeeper The documented procedures were done by the: Physician Industrial Commercial Groundskeeper - Attestation: I have personally seen and examined this patient.: Yes I have fully participated in the care of the patient.: Yes I have reviewed all pertinent clinical information, including history, physical exam and plan: Yes <Cecilia Hutchins - Last Filed: 05/28/17 14:17> Past Medical History Vital Signs: Last Vital Signs Temp 98.2 F 05/28/17 11:37 Pulse 111 H 05/28/17 11:37 Resp 16 05/28/17 11:37 BP 113/64 05/28/17 11:37 Pulse Ox 98 05/28/17 11:37 - Medical History PMH: Anemia Denies: Anxiety, Bipolar Disorder, Depression, HIV, Paranoia, Post Traumatic Stress Disorder, Chronic Kidney Disease, Schizophrenia - Surgical History Other surgeries: Left cystectomy, Left salphingoopherectomy - Family History Family History: States: Unknown Family Hx - Social History Current smoker - smoking cessation education provided: No Ex-Smoker (has not smoked in the last 12 months): No <Sy Jaquez - Last Filed: 05/28/17 13:00> Vital Signs: Last Vital Signs Temp 98.2 F 05/28/17 11:37 Pulse 111 H 05/28/17 11:37 Resp 16 05/28/17 11:37 BP 113/64 05/28/17 11:37 Pulse Ox 98 05/28/17 13:01 <Cecilia Hutchins - Last Filed: 05/28/17 14:17> - Allergies Allergies/Adverse Reactions: Allergies Allergy/AdvReac Type Severity Reaction Status Date / Time No Known Allergies Allergy Verified 05/28/17 11:36 Review of Systems ROS Statement: Except As Marked, All Systems Reviewed And Found Negative <Sy Jaquez - Last Filed: 05/28/17 13:00> Physical Exam - Physical Exam Appears: Positive for: No Acute Distress Head Exam: Positive for: NORMAL INSPECTION Skin: Positive for: Pallor Cardiovascular/Chest: Positive for: Tachycardia Respiratory: Positive for: Normal Breath Sounds. Negative for: Crackles, Rales , Rhonchi Pelvic Exam: Positive for: No Cerv. 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 Birch. Advised to transfuse patient if needed. Start patient on Ortho Cyclin 4 pills for 4 days, 3 pills for 3 days, 2 pills for 2 days. F/U with Dr. Camarena next week <Sy Jaquez - Last Filed: 05/28/17 13:00> Medical Decision Making: patient is anemic and is bleeding heavily vaginally. Will admit for transfusion and further treatment. <Cecilia Hutchins - Last Filed: 05/28/17 14:17> Disposition - Disposition Disposition: Transfer of Care Disposition Time: 13:01 Patient Signed Over To: Cecilia Hutchins <Sy Jaquez - Last Filed: 05/28/17 13:00> - Patient ED Disposition Is Patient to be Admitted: Yes Doctor Will See Patient In The: Hospital - Disposition Disposition: Transfer of Care - Pt Status Changed To: Hospital Disposition Of: Observation - POA Present On Arrival: None <Cecilia Hutchins - Last Filed: 05/28/17 14:17> - Clinical Impression Clinical Impression: Vaginal bleeding, Anemia - Disposition Condition: STABLE Forms: eblizz (Ukrainian)
[2017-05-28 12:56] LABS: BASO # 0.1 K/uL (0.0-0.2); BASO % 0.7 % (0.0-2.0); EOS # 0.1 K/uL (0.0-0.7); HEMOGLOBIN 7.4 g/dL (12.0-16.0); LYMPH # 1.9 K/uL (1.0-4.3); LYMPH % 23.3 % (20.0-40.0); MEAN CELL VOLUME 90.6 fl (81.0-99.0); MEAN CORPUSCULAR HEMOGLOBIN 30.3 pg (27.0-31.0); MEAN CORPUSCULAR HGB CONC 33.5 g/dL (33.0-37.0); MEAN PLATELET VOLUME 8.6 fl (7.2-11.7); MONO # 0.4 K/uL (0.0-0.8); NEUT # 5.7 K/uL (1.8-7.0); NRBC % 0.1 % (0.0-0.0); RBC 2.43 Mil/uL (3.80-5.20); WHITE BLOOD COUNT 8.1 K/uL (4.8-10.8)
[2017-05-28 13:07] LABS: CALCIUM 8.4 mg/dL (8.4-10.2); GFR AFRICAN-AMERICAN > 60; GFR NON-AFRICAN AMERICAN > 60
[2017-05-28 13:08] LABS: ALB/GLOB RATIO 1.2 (1.0-2.1); ALBUMIN 3.7 g/dL (3.5-5.0); ALT/SGPT 27 U/L (9-52); AST/SGOT 40 U/L (14-36); BLOOD UREA NITROGEN 12 mg/dl (7-17)
[2017-05-28 15:48] VITALS: O2SAT 100
--- NOTE | 2017-05-28 17:10 | US ---
HISTORY: Vaginal bleeding. Menstrual status: LMP 05/23/2017 COMPARISON: 01/12/2017 TECHNIQUE: Transvaginal only. Real -time technique with 2D, duplex and color Doppler FINDINGS: UTERUS: Measures 9.4 x 11.8 cm. Enlarged heterogeneous uterus. Location of fibroid and size: Submucosal 7 x 7.4 x 7.2 cm body of the uterus posteriorly ENDOMETRIUM: Measures 14.7 mm in diameter. Endometrial hypertrophy without focal abnormality. Trace free fluid in the lower endometrial canal/ cervix CERVIX: No cervical abnormality identified.Incidental finding: Nabothian cysts the largest measures 7 x 9 mm RIGHT OVARY: Measures similar to that seen previously. Cm. Re- demonstration of solid mass 4.6 x 4.6 x 3.8 cm. Normal flow. Cyst 2.7 x 2.4 cm. This appears to be a simple cyst. Hyperechoic focus within the LEFT OVARY: Relevant surgical history: 2017 left oophorectomy FREE FLUID: No significant free fluid noted. OTHER FINDINGS: None. IMPRESSION: Enlarged heterogeneous uterus with solitary large fibroid. Stable right adnexal mass. Endometrial hypertrophy with trace fluid in the endometrial canal.
--- NOTE | 2017-05-28 18:49 | CP.PCM.HP ---
History of Present Illness - History of Present Illness History of Present Illness: Pt is a 37 y/o female with hx of Abnormal Uterine Bleed and Ovarian cysts presents with 1 week hx of vaginal bleeding. Pt states she has been changing pad /sanitary napkin every 2 hours. Denies abdominal pelvic pain, cp, sob, lightheadedness, palpitations, or syncopy. LMP was in the end of 02/2017. Pt was previously on oral contraceptive but states she was told by her SUPERVISOR STAGE CARPENTRY, Dr. Camarena, recommended she stop taking the medication and f/u at [facility] for possible procedure. ([facility] records reviewed, and Dr. Disla notes clearly state that patient is to continue taking the OCP's. Pt' pharmacy called and it was verified that pt picked up RX once in February with 2 refills remaining. PMHx: Anemia, AUB w/ hx of multiple blood transfusions Nov and Feb OBhx: 3 NVD (2003, 2004, 2008). Pt states all were full term and she had no post - complications. 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 Pap in 12/2016 NILM. Surg hx: Left Salpingo-Oophorectomy in August 2016 Rx meds: Ferrous Sulfate TID Social hx: denies tobacco, alcohol, illicit drug use Allergies: NKDA Triage Vitals: Notable for HR: 111 Physical Exam: Speculum + for pooling blood, cervix closed Ed Course: CBC Type and Screen Transvaginal U/S Present on Admission - Present on Admission Any Indicators Present on Admission: No History of DVT/PE: No History of Uncontrolled Diabetes: No Urinary Catheter: No Decubitus Ulcer Present: No History Surgical Site Infection Following: None Past Patient History - Infectious Disease Hx of Infectious Diseases: None - Past Medical History & Family History Past Medical History?: No - Past Social History Smoking Status: Never Smoked - CARDIAC Hx Cardiac Disorders: No - PULMONARY Hx Respiratory Disorders: No - NEUROLOGICAL Hx Neurological Disorder: No - HEENT Hx HEENT Problems: No - RENAL Hx Chronic Kidney Disease: No - ENDOCRINE/METABOLIC Hx Endocrine Disorders: No - HEMATOLOGICAL/ONCOLOGICAL Hx Anemia: Yes Hx Human Immunodeficiency Virus (HIV): No - INTEGUMENTARY Hx Dermatological Problems: No - MUSCULOSKELETAL/RHEUMATOLOGICAL Hx Musculoskeletal Disorders: No Hx Falls: No - GASTROINTESTINAL Hx Gastrointestinal Disorders: Yes Hx Constipation: Yes - GENITOURINARY/GYNECOLOGICAL Hx Genitourinary Disorders: No - PSYCHIATRIC Hx Anxiety: No Hx Bipolar Disorder: No Hx Depression: No Hx Paranoia: No Hx Post Traumatic Stress Disorder: No Hx Schizophrenia: No Hx Substance Use: No - SURGICAL HISTORY Hx Surgeries: Yes Other/Comment: left ovary removal. endometrial biopsy - ANESTHESIA Hx Anesthesia: Yes Hx Anesthesia Reactions: No Hx Malignant Hyperthermia: No Meds Allergies/Adverse Reactions: Allergies Allergy/AdvReac Type Severity Reaction Status Date / Time No Known Allergies Allergy Verified 05/28/17 11:36 Physical Exam - Constitutional Appears: Well, Non-toxic, No Acute Distress - Head Exam Head Exam: ATRAUMATIC, NORMAL INSPECTION - ENT Exam ENT Exam: Mucous Membranes Moist - Respiratory Exam Respiratory Exam: Clear to Auscultation Bilateral. absent: Rales, Wheezes - Cardiovascular Exam Cardiovascular Exam: REGULAR RHYTHM, +S1, +S2 Results - Vital Signs Recent Vital Signs: Last Vital Signs Temp 97.8 F 05/28/17 17:54 Pulse 100 H 05/28/17 17:54 Resp 20 05/28/17 17:54 BP 93/62 L 05/28/17 17:54 Pulse Ox 100 05/28/17 17:54 - Labs Result Diagrams: 05/28/17 12:45 05/28/17 12:45 Labs: Laboratory Results - last 24 hr 05/28/17 05/28/17 05/28/17 12:45 12:45 12:45 WBC 8.1 RBC 2.43 L Hgb 7.4 L D Hct 22.0 L MCV 90.6 MCH 30.3 MCHC 33.5 RDW 14.0 Plt Count 265 D MPV 8.6 Neut % (Auto) 70.0 Lymph % (Auto) 23.3 [place] % (Auto) 5.0 Eos % (Auto) 1.0 Baso % (Auto) 0.7 Neut # (Auto) 5.7 Lymph # (Auto) 1.9 [place] # (Auto) 0.4 Eos # (Auto) 0.1 Baso # (Auto) 0.1 Sodium 139 Potassium 4.3 Chloride 103 Carbon Dioxide 25 Anion Gap 15 BUN 12 Creatinine 0.6 L Est GFR ( Amer) > 60 Est GFR (Non-Af Amer) > 60 Random Glucose 99 Calcium 8.4 Total Bilirubin 0.7 AST 40 H D ALT 27 Alkaline Phosphatase 27 L D Total Protein 6.8 Albumin 3.7 Globulin 3.1 Albumin/Globulin Ratio 1.2 Blood Type Cancelled Antibody Screen Cancelled Crossmatch BBK History Checked Cancelled 05/28/17 13:50 WBC RBC Hgb Hct MCV MCH MCHC RDW Plt Count MPV Neut % (Auto) Lymph % (Auto) [place] % (Auto) Eos % (Auto) Baso % (Auto) Neut # (Auto) Lymph # (Auto) [place] # (Auto) Eos # (Auto) Baso # (Auto) Sodium Potassium Chloride Carbon Dioxide Anion Gap BUN Creatinine Est GFR ( Amer) Est GFR (Non-Af Amer) Random Glucose Calcium Total Bilirubin AST ALT Alkaline Phosphatase Total Protein Albumin Globulin Albumin/Globulin Ratio Blood Type A POSITIVE Antibody Screen Negative Crossmatch See Detail BBK History Checked Patient has bt Assessment & Plan - Assessment and Plan (Free Text) Assessment: Pt is a 37 y/o female with hx of Abnormal Uterine Bleed and Ovarian cysts presents with vaginal bleeding and admitted for significant anemia. #Anemia, acute - Hg, 7.4 - Noted to be tachycardic, later complained of lightheadedness -Type and Screen completed -Will be transfused 1 unit of PRBC -F/U am cbc #Abnormal Uterine Bleed, acute -Hemodynamically stable -Transvaginal U/S- Large uterine fibroid, enlarged uterus 14.7mm -ER spoke with SUPERVISOR STAGE CARPENTRY (Dr. Birch)- Reccomended starting pt on orthotryclin. F/U with Dr. Camarena next week -Will start pt on Permarin 25mg QIV q4 as per ACOG recommendations. (Pt denies hx of clots, migraines,breast cancer, liver dysfunction or disease) -Will d/c pt on OCP's -Endometrial biopsy on 02/2017 negative for malignancy
[2017-05-29 07:05] LABS: HEMOGLOBIN 8.6 g/dL (12.0-16.0); MEAN CELL VOLUME 90.2 fl (81.0-99.0); MEAN CORPUSCULAR HEMOGLOBIN 30.9 pg (27.0-31.0); MEAN CORPUSCULAR HGB CONC 34.2 g/dL (33.0-37.0); RBC 2.79 Mil/uL (3.80-5.20); RED CELL DISTRIBUTION WIDTH 13.9 % (11.5-14.5); WHITE BLOOD COUNT 11.5 K/uL (4.8-10.8)
[2017-05-29 07:49] VITALS: RESP 20
--- NOTE | 2017-05-29 13:10 | CP.PCM.PN ---
Subjective - Date & Time of Evaluation Date of Evaluation: 05/29/17 Time of Evaluation: 10:00 - Subjective Subjective: No acute overnight events. Pt seen and examined this morning at the bedside. Pt complains of nausea with 2 episodes of NBNB vomiting this morning. Pt additionally reports epigastric abdominal pain that she feels is "acid." Reports vaginal bleeding, changing pad every 2-3 hours. Also reports lightheadedness. Denies pelvic pain, palpitations, sob, cp, gait instability, fever, chills. Objective - Vital Signs/Intake and Output Vital Signs (last 24 hours): Temp Pulse Resp BP Pulse Ox 97.8 F 95 H 20 90/60 L 100 05/29/17 07:48 05/29/17 07:48 05/29/17 07:48 05/29/17 07:48 05/29/17 07:48 - Medications Medications: Current Medications Ondansetron HCl (Zofran Inj) 4 mg IVP Q4 PRN PRN Reason: Nausea/Vomiting - Labs Labs: 05/29/17 05:20 05/28/17 12:45 - Constitutional Appears: Well, Non-toxic, No Acute Distress - Eye Exam Additional comments: Conjuctival pallor - ENT Exam ENT Exam: Mucous Membranes Moist - Respiratory Exam Respiratory Exam: Clear to Ausculation Bilateral. absent: Rales, Wheezes - Cardiovascular Exam Cardiovascular Exam: REGULAR RHYTHM, +S1, +S2. absent: Murmur - GI/Abdominal Exam GI & Abdominal Exam: Soft, Normal Bowel Sounds. absent: Distended, Tenderness Additional comments: Palpable uterus masses appreciable, non tender, firm in tone, favoring left side - Exam Bimanual exam: Uterine Enlargement (moderately enlarged uterus, firm) - Extremities Exam Extremities Exam: Normal Inspection - Back Exam Back Exam: NORMAL INSPECTION - Neurological Exam Neurological Exam: Alert, Awake, Oriented x3 - Psychiatric Exam Psychiatric exam: Normal Affect Assessment and Plan - Assessment and Plan (Free Text) Assessment: Pt is a 37 y/o female with hx of Abnormal Uterine Bleed and Ovarian cysts presents with vaginal bleeding and admitted for significant anemia. Plan for discharge today if pt remains stable and has been started on OCP. #Anemia, acute, s/p transfusion 1 unit PRBC -Mild anemia symptoms -Hg, 7.4 on admission, repeat Hg 8.6 #Abnormal Uterine Bleed, acute -Hemodynamically stable -Transvaginal U/S- Large uterine fibroid, enlarged uterus 14.7mm -ER Attending spoke with INVENTORY CONTROL/SHIPPING RECEIVING (Dr. Birch)- Recommended starting pt on orthotryclin. F/U with Dr. Camarena next week -s/p Permarin 25mg QIV x1 at 9pm last night (Pt denies hx of clots, migraines, breast cancer, liver dysfunction or disease) -Pt will be started on [place] (Levonorgestrel) today, pt's medication will be brought from pharmacy. -Endometrial biopsy on 02/2017 negative for malignancy #Nausea/Vomiting, resolved -Likely 2/2 to Premarin. On reexamination, pt's symptoms had resolved and she is now tolerating PO -Will continue to monitor
[2017-05-29] MEDS ORDERED: Home Med 1 UNIT PO SCH (13:30)
[2017-05-29 15:53] VITALS: BP 97/65; TEMP 97.6
[2017-05-29 16:36] VITALS: PULSE 102
--- NOTE | 2017-05-29 17:43 | CP.PCM.PCO ---
Physician Communication Note - Physician Communication Note Physician Communication Note: Stable, Hgb 8.6, bleeding almost resolved, started on OCPs. To f/u as OP
== END 2017-05-29 18:30 | disposition home or self-care (01) ==
LOC: H.ER 11:19 → H.ERHOLD 16:05 → H.MEDSURG1 17:27
PROVIDERS: ADMIT Family Medicine; ATTEND Family Medicine
DX: D25.9 Leiomyoma of uterus, unspecified (principal); D62 Acute posthemorrhagic anemia; K59.00 Constipation, unspecified; N83.202 Unspecified ovarian cyst, left side; R00.0 Tachycardia, unspecified; R10.13 Epigastric pain; R11.2 Nausea with vomiting, unspecified; R42 Dizziness and giddiness
CPT/HCPCS: 36415; 36430; 76830; 80053; 81025; 85025; 85027; 86850; 86900; 86920; 99285; G0378; J1410; J2405; P9051

== ENCOUNTER 2018-07-08 10:26 | Inpatient (IN) | payer MEDICAID, SELFPAY ==
[2018-07-08 10:28] VITALS: BMI 20.9
--- NOTE | 2018-07-08 11:46 | ED PDOC ---
HPI: Abdomen Time Seen by Provider: 07/08/18 10:49 Chief Complaint (Nursing): Abdominal Pain Chief Complaint (Provider): pelvic pain History Per: Patient History/Exam Limitations: no limitations Additional Complaint(s): 38 y/o F with hx of uterine fibroids and anemia who presents with pelvic pain since yesterday. Patient states that she began her period yesterday at which time she began having pelvic tenderness and has had a moderate amount of bleeding with some clots. She changed 4 adult diapers yesterday and 3 today. Denies dizziness, weakness, N/V, diarrhea, fevers, chills. + dysuria, no abnormal vaginal discharge prior to bleeding. States that the pelvic pain is unusual for her as she usually has back pain. She started taking control today and took Naproxen at 7am today. Past Medical History Reviewed: Historical Data, Nursing Documentation, Vital Signs Vital Signs: Last Vital Signs Temp 97.9 F 07/08/18 10:29 Pulse 113 H 07/08/18 10:29 Resp 18 07/08/18 10:29 BP 104/69 07/08/18 10:29 Pulse Ox 99 07/08/18 10:29 - Medical History PMH: Anemia Denies: Anxiety, Bipolar Disorder, Depression, HIV, Paranoia, Post Traumatic Stress Disorder, Chronic Kidney Disease, Schizophrenia Other PMH: uterine fibroids, endometriosis - Surgical History Other surgeries: Left oopherectomy 2017 - Family History Family History: States: Unknown Family Hx - Home Medications Home Medications: Ambulatory Orders Medication Instructions Recorded Ferrous Sulfate [Feosol] 325 mg PO TID 05/28/17 Home Med 1 unit PO DAILY ea 05/29/17 - Allergies Allergies/Adverse Reactions: Allergies Allergy/AdvReac Type Severity Reaction Status Date / Time No Known Allergies Allergy Verified 05/28/17 11:36 Review of Systems Constitutional: Negative for: Fever, Chills Genitourinary Female: Positive for: Dysuria, Vaginal Bleeding, Pelvic Pain Physical Exam - Reviewed Nursing Documentation Reviewed: Yes Vital Signs Reviewed: Yes - Physical Exam Appears: Positive for: Uncomfortable Skin: Negative for: Pallor Pelvic Exam: Positive for: External Exam Normal, Active Bleeding. Negative for: Speculum Exam Normal (heavy dark blood in vaginal vault, cervix not able to be visualized), Bimanual Exam Normal (firm uterus on bimanual, no tenderness. ), No Cerv. Motion Tender, Discharge - Laboratory Results Result Diagrams: 07/08/18 17:19 07/08/18 12:00 - ECG O2 Sat by Pulse Oximetry: 99 Medical Decision Making Medical Decision Making: CBC, CMP Transvaginal U/S type and screen U/A, urine culture WBC: 23.5K VBG lactate, blood cultures, Vanc/Zosyn ordered. U/A: LE neg, nitrate neg; WBC 6K. TVUS: FINDINGS: UTERUS: Measures 13.7 x 8.4 x 10.0 cm. Uterus is retroverted and enlarged. There is heterogeneous myometrial echotexture. There is redemonstration of a 5.4 x 5.9 x 5.5 cm intramural posterior fundal fibroid in the lower uterine segment, apparently decreased in size since the prior examination. ENDOMETRIUM: Measures 8.0 mm in diameter. Unremarkable. CERVIX: No cervical abnormality identified. RIGHT OVARY: Measures 6.1 x 4.1 x 5.6 cm. No solid mass. There is redemonstration of a hyperechoic focus which may represent a small dermoid. Ovarian blood flow was not be documented. There is a 3.5 x 2.1 x 1.5 cm complicated cyst. LEFT OVARY: Surgically absent. FREE FLUID: No significant free fluid noted. OTHER FINDINGS: None. IMPRESSION: 1. Limited transvaginal pelvic ultrasound due to patient's pain. Apparent decrease in size of 5.4 x 5.9 x 5.5 cm intramural posterior wall fibroid in the lower uterine segment, although direct comparison is difficult due to d ifferences in slice selection. 2. Blood flow was not documented in the right ovary, which could be due to technical limitation as the patient was not able to cooperate due to pain. 3. 3.5 x 2.1 x 1.5 cm complicated cyst in the right ovary. 2:44pm: telecommunications line mechanic consulted for possible ovarian torsion and spoke with OB who will review ultrasound and see patient. Seen by party host who feel that ovarian torsion is unlikely given size of cyst. CT abdomen/pelvis w/ PO and IV contrast ordered. Repeat CBC shows WbC 24.9K. Morphine 2mg IV x [address] abd/pelvis: Impression: Distended gallbladder with gallstones. Markedly enlarged fibroid uterus measuring 12.4 x 9.9 14.7cm. Right ovarian cystic mass measuring 4.5 x 4.3cm. Possible dilatation of the Right Fallopian tube or adjacent fluid filled bowel at the Right adnexal region. Similar appearance to previous study. Close clinical correlation w/ U/S examination of the pelvis and gallbaldder may be considered as clinically warranted. 20:50: case d/w Dr. Champagne. Pt admitted under Dr. Champagne for abdominal pain/abdominal sepsis to med surg. Patient alerted and in agreement with admission. 21:00: surgery consulted for possible cholecystitis who will see patient. Care transferred to Dr. Champagne at this time. Disposition - Clinical Impression Clinical Impression: Abdominal pain, Sepsis - Patient ED Disposition Is Patient to be Admitted: Transfer of Care Discussed With : Lazaro Champagne Counseled Patient/Family Regarding: Studies Performed, Diagnosis, Need For F ollowup - Disposition Disposition: Transfer of Care Disposition Time: 21:14 Condition: FAIR
[2018-07-08 12:09] LABS: BASO # 0.1 K/uL (0.0-0.2); BASO % 0.2 % (0.0-2.0); EOS % 0.1 % (0.0-4.0); HEMOGLOBIN 11.1 g/dL (12.0-16.0); LYMPH # 0.8 K/uL (1.0-4.3); LYMPH % 3.3 % (20.0-40.0); MEAN CELL VOLUME 92.4 fl (81.0-99.0); MEAN CORPUSCULAR HEMOGLOBIN 30.7 pg (27.0-31.0); MEAN CORPUSCULAR HGB CONC 33.2 g/dL (33.0-37.0); MEAN PLATELET VOLUME 9.1 fl (7.2-11.7); MONO % 4.1 % (0.0-10.0); NEUT # 21.7 K/uL (1.8-7.0); NEUT % 92.3 % (50.0-75.0); NRBC % 0.1 % (0.0-0.0); PLATELET COUNT 291 K/uL (130-400); RBC 3.61 Mil/uL (3.80-5.20); RED CELL DISTRIBUTION WIDTH 13.4 % (11.5-14.5); WHITE BLOOD COUNT 23.5 K/uL (4.8-10.8)
[2018-07-08 12:44] LABS: BLOOD UREA NITROGEN 8 mg/dl (7-17); CALCIUM 8.7 mg/dL (8.4-10.2); GFR NON-AFRICAN AMERICAN > 60
[2018-07-08] MEDS ORDERED: Piperacillin/Tazobact 3.375 GM in Sodium Chloride 0.9% 100 ML IVPB STA (12:45)
[2018-07-08 13:23] LABS: BANDS 3 % (0-2); LYMPHOCYTE 3 % (20-50); MONOCYTE 5 % (0-10); NEUTROPHIL 89 % (42-75); PLATELET ESTIMATE NORMAL (NORMAL); TOTAL CELLS COUNTED 100
[2018-07-08 13:41] LABS: VENOUS BLOOD GAS BASE EXCESS 2.8 mmol/L (0.0-2.0); VENOUS BLOOD GAS PCO2 44 mmHg (40-60); VENOUS BLOOD GAS PO2 14 mm/Hg (30-55); VENOUS BLOOD PH 7.41 (7.32-7.43)
[2018-07-08 13:47] LABS: URINE BACTERIA RARE (<OCC); URINE BILIRUBIN NEGATIVE (NEGATIVE); URINE BLOOD SMALL (NEGATIVE); URINE CLARITY SLIGHTY-CLOUDY (Clear); URINE COLOR YELLOW (YELLOW); URINE GLUCOSE (UA) NEG (NEGATIVE); URINE HYALINE CAST 0-2 /hpf (0-2); URINE LEUKOCYTE ESTERASE NEG Leu/uL (Negative); URINE PROTEIN 30 mg/dL (NEGATIVE); URINE UROBILINOGEN 0.2-1.0 mg/dL (0.2-1.0)
--- NOTE | 2018-07-08 13:51 | RAD ---
Date of service: 07/08/2018 HISTORY: high wbc COMPARISON: No prior. FINDINGS: LUNGS: The lungs are well inflated and clear. PLEURA: No pleural effusions or pneumothorax. CARDIOVASCULAR: The heart is normal in size. No aortic atherosclerotic calcifications present. OSSEOUS STRUCTURES: Within normal limits for the patient's age. VISUALIZED UPPER ABDOMEN: Normal. OTHER FINDINGS: None. IMPRESSION: No active pulmonary disease.
[2018-07-08] MEDS ORDERED: Piperacillin/Tazobact 3.375 gm Inj IVPB ONE (14:06)
--- NOTE | 2018-07-08 14:34 | US ---
Date of service: 07/08/2018 HISTORY: new pelvic pain, hx of fibroids COMPARISON: 07/01/2018. TECHNIQUE: Transvaginal pelvic ultrasound was performed. Limited ultrasound as the patient was in pain. FINDINGS: UTERUS: Measures 13.7 x 8.4 x 10.0 cm. Uterus is retroverted and enlarged. There is heterogeneous myometrial echotexture. There is redemonstration of a 5.4 x 5.9 x 5.5 cm intramural posterior fundal fibroid in the lower uterine segment, apparently decreased in size since the prior examination. ENDOMETRIUM: Measures 8.0 mm in diameter. Unremarkable. CERVIX: No cervical abnormality identified. RIGHT OVARY: Measures 6.1 x 4.1 x 5.6 cm. No solid mass. There is redemonstration of a hyperechoic focus which may represent a small dermoid. Ovarian blood flow was not be documented. There is a 3.5 x 2.1 x 1.5 cm complicated cyst. LEFT OVARY: Surgically absent. FREE FLUID: No significant free fluid noted. OTHER FINDINGS: None. IMPRESSION: 1. Limited transvaginal pelvic ultrasound due to patient's pain. Apparent decrease in size of 5.4 x 5.9 x 5.5 cm intramural posterior wall fibroid in the lower uterine segment, although direct comparison is difficult due to differences in slice selection. 2. Blood flow was not documented in the right ovary, which could be due to technical limitation as the patient was not able to cooperate due to pain. 3. 3.5 x 2.1 x 1.5 cm complicated cyst in the right ovary.
[2018-07-08] MEDS ORDERED: Sodium Chloride 0.9% 1,000 ML IV STA (14:45)
[2018-07-08] MEDS ORDERED: Vancomycin 1 g Inj ONE (15:49)
[2018-07-08] MEDS ORDERED: Iohexol 240 (50 ml) PO ONE (16:13)
[2018-07-08] MEDS ORDERED: Iohexol 240 (50 ml) ONE (16:34)
--- NOTE | 2018-07-08 16:34 | CP.PCM.CON ---
<Marylou Hamilton - Last Filed: 07/08/18 16:28> History of Present Illness - History of Present Illness History of Present Illness: Dirk is a 38 year old who presented to the ER today due to severe lower abdominal pain. OBGYN was asked to consult due to ultrasound findings of a R ovarian complex cyst and inability to see blood flow to the R ovary on US. Dirk reports her pain began yesterday with the onset of her period. Describes it as intense cramping in both lower quadrants and suprapubicly. Overall her pain has improved today compared to yesterday, rating it now at a 3/10 (patient did receive one dose of morphine in the ER). 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 She does feel like this pain is similar to her usual menstrual cramps and has been seen in the ER several times over the last year fo r the same complaint. She has also needed several blood transfusions in the past due to her bleeding. A referral to [facility] has been made for a surgical consultation but the patient is currently having trouble securing her jeffrey care and has not made an appointment. Denies any fevers, chills, rigors, nausea, vomiting, diarrhea, dysuria or urinary frequency in the last few days. - one previous first trimester loss. She has 3 children, ages 15,13,8, all born vaginally with no complications Reports a previous diagnosis of endometriosis Review of Systems - Constitutional Constitutional: As Per HPI - Cardiovascular Cardiovascular: absent: Diaphoresis - Gastrointestinal Gastrointestinal: As Per HPI - Genitourinary Genitourinary: As Per HPI - Reproductive: Female Reproductive:Female: As Per HPI - Menstruation Menstruation: As Per HPI, Currently Menstual, Heavy Menses, Abnormal Vaginal Bleeding, Dysmenorrhea - Musculoskeletal Musculoskeletal: As Per HPI - Integumentary Integumentary: As Per HPI Past Patient History - Infectious Disease Hx of Infectious Diseases: None - Past Medical History & Family History Past Medical History?: Yes - Past Social History Smoking Status: Never Smoked Drugs: Denies Home Situation {Lives}: With Family - CARDIAC Hx Cardiac Disorders: No - PULMONARY Hx Respiratory Disorders: No - NEUROLOGICAL Hx Neurological Disorder: No - HEENT Hx HEENT Problems: No - RENAL Hx Chronic Kidney Disease: No - ENDOCRINE/METABOLIC Hx Endocrine Disorders: No - HEMATOLOGICAL/ONCOLOGICAL Hx Anemia: Yes Hx Human Immunodeficiency Virus (HIV): No - INTEGUMENTARY Hx Dermatological Problems: No - MUSCULOSKELETAL/RHEUMATOLOGICAL Hx Musculoskeletal Disorders: No Hx Falls: No - GASTROINTESTINAL Hx Gastrointestinal Disorders: Yes Hx Constipation: Yes - GENITOURINARY/GYNECOLOGICAL Hx Genitourinary Disorders: Yes (Diagnosis of endometriosis, uterine fibroid) Hx Urinary Tract Infection: Yes Other/Comment: endometriosis, ovarian cyst - PSYCHIATRIC Hx Anxiety: No Hx Bipolar Disorder: No Hx Depression: No Hx Paranoia: No Hx Post Traumatic Stress Disorder: No Hx Schizophrenia: No - SURGICAL HISTORY Hx Surgeries: Yes Other/Comment: left ovary removal. endometrial biopsy - ANESTHESIA Hx Anesthesia: Yes Hx Anesthesia Reactions: No Hx Malignant Hyperthermia: No Meds Allergies/Adverse Reactions: Allergies Allergy/AdvReac Type Severity Reaction Status Date / Time No Known Allergies Allergy Verified 05/28/17 11:36 - Medications Medications: OCPs Physical Exam - Constitutional Appears: Well - Head Exam Head Exam: ATRAUMATIC - Eye Exam Eye Exam: Normal appearance - ENT Exam ENT Exam: Mucous Membranes Moist - Respiratory Exam Respiratory Exam: NORMAL BREATHING PATTERN - Cardiovascular Exam Cardiovascular Exam: REGULAR RHYTHM - GI/Abdominal Exam GI & Abdominal Exam: Soft. absent: Distended, Rebound, Rigid, Tenderness Additional comments: Uterus was palpable to just below the umbilicus, mildly painful on palpation - Extremities Exam Extremities exam: Positive for: normal inspection Results - Vital Signs Recent Vital Signs: Last Vital Signs Temp 98.1 F 07/08/18 15:58 Pulse 90 07/08/18 15:58 Resp 18 07/08/18 15:58 BP 113/70 07/08/18 15:58 Pulse Ox 100 07/08/18 15:58 - Labs Result Diagrams: 07/08/18 12:00 07/08/18 12:00 Labs: Laboratory Results - last 24 hr 07/08/18 07/08/18 07/08/18 12:00 12:00 12:44 WBC 23.5 H D RBC 3.61 L Hgb 11.1 L Hct 33.3 L MCV 92.4 MCH 30.7 MCHC 33.2 RDW 13.4 Plt Count 291 MPV 9.1 Neut % (Auto) 92.3 H Lymph % (Auto) 3.3 L [place] % (Auto) 4.1 Eos % (Auto) 0.1 Baso % (Auto) 0.2 Neut # (Auto) 21.7 H Lymph # (Auto) 0.8 L [place] # (Auto) 1.0 H Eos # (Auto) 0.0 Baso # (Auto) 0.1 Neutrophils % (Manual) 89 H Band Neutrophils % 3 H Lymphocytes % (Manual) 3 L Monocytes % (Manual) 5 Platelet Estimate Normal RBC Morphology Normal pO2 VBG pH VBG pCO2 VBG HCO3 VBG Total CO2 VBG O2 Sat (Calc) VBG Base Excess VBG Potassium Glucose Lactate FiO2 Sodium 136 Potassium 3.8 Chloride 103 Carbon Dioxide 22 Anion Gap 15 BUN 8 Creatinine 0.5 L Est GFR ( Amer) > 60 Est GFR (Non-Af Amer) > 60 Random Glucose 108 H Calcium 8.7 Venous Blood Potassium Urine Color Yellow Urine Clarity Slighty-cloudy Urine pH 6.0 Ur Specific [place] 1.013 Urine Protein 30 Urine Glucose (UA) Neg Urine Ketones Trace Urine Blood Small Urine Nitrate Negative Urine Bilirubin Negative Urine Urobilinogen 0.2-1.0 Ur Leukocyte Esterase Neg Urine RBC (Auto) 4 H Urine Microscopic WBC 6 H Urine Bacteria Rare Hyaline Casts 0-2 Blood Type Antibody Screen BBK History Checked 07/08/18 07/08/18 13:03 13:30 WBC RBC Hgb Hct MCV MCH MCHC RDW Plt Count MPV Neut % (Auto) Lymph % (Auto) [place] % (Auto) Eos % (Auto) Baso % (Auto) Neut # (Auto) Lymph # (Auto) [place] # (Auto) Eos # (Auto) Baso # (Auto) Neutrophils % (Manual) Band Neutrophils % Lymphocytes % (Manual) Monocytes % (Manual) Platelet Estimate RBC Morphology pO2 14 L VBG pH 7.41 VBG pCO2 44 VBG HCO3 25.2 VBG Total CO2 29.3 H VBG O2 Sat (Calc) 22.1 L VBG Base Excess 2.8 H VBG Potassium 3.9 Glucose 126 H Lactate 1.3 FiO2 21.0 Sodium 136.0 Potassium Chloride 103.0 Carbon Dioxide Anion Gap BUN Creatinine Est GFR ( Amer) Est GFR (Non-Af Amer) Random Glucose Calcium Venous Blood Potassium 3.9 Urine Color Urine Clarity Urine pH Ur Specific [place] Urine Protein Urine Glucose (UA) Urine Ketones Urine Blood Urine Nitrate Urine Bilirubin Urine Urobilinogen Ur Leukocyte Esterase Urine RBC (Auto) Urine Microscopic WBC Urine Bacteria Hyaline Casts Blood Type A POSITIVE Antibody Screen Negative BBK History Checked Patient has bt - Imaging and Cardiology US - abdomen Status: Report reviewed by me Additional comment: Transvaginal US report - 5.4 x 5.9 x 5.5cm posterior wall fibroid near lower uterine segment, this has apparently decreased from last scan on 07/01 3.5 x 2.1 x 1.5cm complex cyst on the R ovary L ovary surgically absent "Blood flow not documented to R ovary, which could be due to technical limitations as patient was not able to cooperate due to pain" Assessment & Plan (1) Dysmenorrhea Status: Acute - Assessment and Plan (Free Text) Assessment: 38 year old nongravid female with a history of dysmenorrhea and abnormal uterine bleeding here for pelvic pain 1 day of severe lower pelvic pain. OBGYN was consulted to comment on the inability to identify blood flow to the R ovary on US and to evaluate for possible ovarian torsion. At this time there appears to be a low risk of torsion. Her pain is most consistent with dysmenorrhea, enhanced by her large posterior fibroid. This pain could be further compounded by the apparent involution of the fibroid since the last exam, demonstrated by the decrease in size of the fibroid. The fact that her pain has improved significantly since yesterday would also argue against torsion. The lack of visualized blood flow is most likely due to the difficulty of the exam due to patient discomfort. Return precautions were, however, discussed with the patient should her pain increase or change should she be discharged from the hospital. While the patient's leukocytosis could be explained by her level of pain, due to the left shift it would be reasonable to order further imaging to evaluate other etiologies, such as a pelvic/intraabdominal infection. At this time though it does not appear that her elevated WBC and pelvic pain are due to ovarian torsion. Plan: - Recommend that the patient continue her OCPs, as this will likely help her bleeding and cramping - Also discussed with the patient that it's important for her to f/u with her referral to [facility] to have a consultation regarding her fibroid - Should the patient need admission to the hospital for any reason OBGYN would be happy to re-consult on this patient for any further management questions <Arnol Rojas - Last Filed: 07/09/18 13:27> Meds - Medications Medications: Current Medications Acetaminophen (Tylenol 120mg Supp) 120 mg AR Q4 PRN PRN Reason: Pain, Mild (1-3) Enoxaparin Sodium (Lovenox) 40 mg SC DAILY OMID; Protocol Last Admin: 07/09/18 09:05 Dose: 40 mg Lactated Ringer's (Lactated Ringer's) 1,000 mls @ 80 mls/hr IV .[id number] OMID Last Admin: 07/09/18 11:36 Dose: 80 mls/hr Metronidazole (Flagyl 500mg/100ml Ns) 100 mls @ 100 mls/hr IVPB Q8 OMID; Protocol Last Admin: 07/09/18 11:30 Dose: 100 mls/hr Ceftriaxone Sodium 1 gm/ (Sodium Chloride) 100 mls @ 100 mls/hr IVPB Q12H OMID; Protocol Last Admin: 07/09/18 11:36 Dose: Not Given Oxycodone/Acetaminophen (Percocet 5/325 Mg Tab) 1 tab PO Q6 PRN PRN Reason: Pain, moderate (4-7) Stop: 07/11/18 23:07 Potassium Chloride (K-Dur 20 Meq Er Tab) 40 meq PO BID OMID Stop: 07/10/18 09:01 Last Admin: 07/09/18 11:30 Dose: 40 meq Results - Vital Signs Recent Vital Signs: Last Vital Signs Temp 97.4 F L 07/09/18 08:48 Pulse 100 H 07/09/18 08:48 Resp 20 07/09/18 08:48 BP 99/62 L 07/09/18 08:48 Pulse Ox 99 07/09/18 08:48 - Labs Result Diagrams: 07/09/18 05:30 07/09/18 05:30 Labs: Laboratory Results - last 24 hr 07/08/18 07/08/18 07/08/18 12:44 13:03 13:30 WBC RBC Hgb Hct MCV MCH MCHC RDW Plt Count MPV Neut % (Auto) Lymph % (Auto) [place] % (Auto) Eos % (Auto) Baso % (Auto) Neut # (Auto) Lymph # (Auto) [place] # (Auto) Eos # (Auto) Baso # (Auto) Neutrophils % (Manual) Band Neutrophils % Lymphocytes % (Manual) Monocytes % (Manual) Eosinophils % (Manual) Platelet Estimate Large Platelets Giant Platelets Hypochromasia (manual) Anisocytosis (manual) pO2 14 L VBG pH 7.41 VBG pCO2 44 VBG HCO3 25.2 VBG Total CO2 29.3 H VBG O2 Sat (Calc) 22.1 L VBG Base Excess 2.8 H VBG Potassium 3.9 Sodium 136.0 Chloride 103.0 Glucose 126 H Lactate 1.3 FiO2 21.0 Potassium Carbon Dioxide Anion Gap BUN Creatinine Est GFR ( Amer) Est GFR (Non-Af Amer) POC Glucose (mg/dL) Random Glucose Calcium Total Bilirubin AST ALT Alkaline Phosphatase Total Protein Albumin Globulin Albumin/Globulin Ratio Venous Blood Potassium 3.9 Urine Color Yellow Urine Clarity Slighty-cloudy Urine pH 6.0 Ur Specific [place] 1.013 Urine Protein 30 Urine Glucose (UA) Neg Urine Ketones Trace Urine Blood Small Urine Nitrate Negative Urine Bilirubin Negative Urine Urobilinogen 0.2-1.0 Ur Leukocyte Esterase Neg Urine RBC (Auto) 4 H Urine Microscopic WBC 6 H Urine Bacteria Rare Hyaline Casts 0-2 Blood Type A POSITIVE Antibody Screen Negative BBK History Checked Patient has bt 07/08/18 07/08/18 07/09/18 17:01 17:19 05:30 WBC 24.9 H 23.9 H RBC 3.32 L 2.89 L Hgb 10.0 L 8.8 L Hct 30.6 L 26.9 L MCV 92.2 93.1 MCH 30.1 30.5 MCHC 32.6 L 32.8 L RDW 13.5 13.5 Plt Count 212 194 MPV 7.9 8.1 Neut % (Auto) 90.0 H 91.6 H Lymph % (Auto) 4.9 L 4.0 L [place] % (Auto) 4.5 3.9 Eos % (Auto) 0.4 0.3 Baso % (Auto) 0.2 0.2 Neut # (Auto) 22.4 H 21.9 H Lymph # (Auto) 1.2 1.0 [place] # (Auto) 1.1 H 0.9 H Eos # (Auto) 0.1 0.1 Baso # (Auto) 0.0 0.0 Neutrophils % (Manual) 89 H 79 H Band Neutrophils % 2 17 H* Lymphocytes % (Manual) 4 L 2 L Monocytes % (Manual) 4 2 Eosinophils % (Manual) 1 Platelet Estimate Normal Normal Large Platelets Present Giant Platelets Present Hypochromasia (manual) Slight Anisocytosis (manual) Slight Slight pO2 VBG pH VBG pCO2 VBG HCO3 VBG Total CO2 VBG O2 Sat (Calc) VBG Base Excess VBG Potassium Sodium Chloride Glucose Lactate FiO2 Potassium Carbon Dioxide Anion Gap BUN Creatinine Est GFR ( Amer) Est GFR (Non-Af Amer) POC Glucose (mg/dL) 110 Random Glucose Calcium Total Bilirubin AST ALT Alkaline Phosphatase Total Protein Albumin Globulin Albumin/Globulin Ratio Venous Blood Potassium Urine Color Urine Clarity Urine pH Ur Specific [place] Urine Protein Urine Glucose (UA) Urine Ketones Urine Blood Urine Nitrate Urine Bilirubin Urine Urobilinogen Ur Leukocyte Esterase Urine RBC (Auto) Urine Microscopic WBC Urine Bacteria Hyaline Casts Blood Type Antibody Screen BBK History Checked 07/09/18 07/09/18 05:30 10:06 WBC RBC Hgb Hct MCV MCH MCHC RDW Plt Count MPV Neut % (Auto) Lymph % (Auto) [place] % (Auto) Eos % (Auto) Baso % (Auto) Neut # (Auto) Lymph # (Auto) [place] # (Auto) Eos # (Auto) Baso # (Auto) Neutrophils % (Manual) Band Neutrophils % Lymphocytes % (Manual) Monocytes % (Manual) Eosinophils % (Manual) Platelet Estimate Large Platelets [place] Platelets Hypochromasia (manual) Anisocytosis (manual) pO2 36 VBG pH 7.35 VBG pCO2 37 L VBG HCO3 20.4 VBG Total CO2 21.5 L VBG O2 Sat (Calc) 73.5 H VBG Base Excess -4.7 L VBG Potassium 3.8 Sodium 137 136.0 Chloride 107 106.0 Glucose 64 L Lactate 0.9 FiO2 21.0 Potassium 3.3 L Carbon Dioxide 20 L Anion Gap 13 BUN 3 L Creatinine 0.5 L Est GFR ( Amer) > 60 Est GFR (Non-Af Amer) > 60 POC Glucose (mg/dL) Random Glucose 77 Calcium 7.9 L Total Bilirubin 0.4 AST 20 ALT 26 Alkaline Phosphatase 59 Total Protein 5.8 L Albumin 3.0 L Globulin 2.8 Albumin/Globulin Ratio 1.1 Venous Blood Potassium 3.8 Urine Color Urine Clarity Urine pH Ur Specific [place] Urine Protein Urine Glucose (UA) Urine Ketones Urine Blood Urine Nitrate Urine Bilirubin Urine Urobilinogen Ur Leukocyte Esterase Urine RBC (Auto) Urine Microscopic WBC Urine Bacteria Hyaline Casts Blood Type Antibody Screen BBK History Checked Attending/Attestation - Attestation I have personally seen and examined this patient.: No I have fully participated in the care of the patient.: Yes I have reviewed all pertinent clinical information: Yes
[2018-07-08 17:26] LABS: BASO % 0.2 % (0.0-2.0); EOS # 0.1 K/uL (0.0-0.7); EOS % 0.4 % (0.0-4.0); LYMPH # 1.2 K/uL (1.0-4.3); LYMPH % 4.9 % (20.0-40.0); MEAN CELL VOLUME 92.2 fl (81.0-99.0); MEAN CORPUSCULAR HEMOGLOBIN 30.1 pg (27.0-31.0); MEAN CORPUSCULAR HGB CONC 32.6 g/dL (33.0-37.0); MEAN PLATELET VOLUME 7.9 fl (7.2-11.7); MONO # 1.1 K/uL (0.0-0.8); MONO % 4.5 % (0.0-10.0); NEUT # 22.4 K/uL (1.8-7.0); PLATELET COUNT 212 K/uL (130-400); RBC 3.32 Mil/uL (3.80-5.20); RED CELL DISTRIBUTION WIDTH 13.5 % (11.5-14.5); WHITE BLOOD COUNT 24.9 K/uL (4.8-10.8)
[2018-07-08 18:19] LABS: BANDS 2 % (0-2); EOSINOPHIL 1 % (0-7); LYMPHOCYTE 4 % (20-50); MONOCYTE 4 % (0-10); NEUTROPHIL 89 % (42-75); PLATELET ESTIMATE NORMAL (NORMAL); TOTAL CELLS COUNTED 100
[2018-07-08 18:20] LABS: ANISOCYTOSIS SLIGHT
[2018-07-08] MEDS ORDERED: Iohexol 300 100 ML IJ ONE (18:53)
[2018-07-08] MEDS ORDERED: Sodium Chloride 0.9% 50 ML IV ONE (18:53)
--- NOTE | 2018-07-08 22:06 | CP.PCM.HP ---
<Nacho Thacker - Last Filed: 07/09/18 00:35> History of Present Illness - History of Present Illness History of Present Illness: 38 y/o F with hx of uterine fibroids, endometriosis, menorrhagia and anemia presents to ED c/o with cramping pelvic pain right sided since yesterday. She reports her pain began with the onset of her period. She endorses h/o painful menses. She reports heavy bleeding with clots needed to change 4 diapers/day. Patient states pain does not radiated and reports is similar to her usual menstrual pain. She is currently taking OCPs in an attempt to regulate her his tory of heavy irregular bleeding and endorses she took naproxen at home this morning with pain improvement. Otherwise she denies dizziness, weakness, N/V, diarrhea, fevers, chills, dysuria, or vaginal discharge. PMD: at clinic PMH: uterine fibroids, endometriosis, menorrhagia and anemia PSH: Madelaine oopherectomy 2016 [facility]: denies Meds: OCP, naprosyn NKDA SH: denies etoh, tobacco, ilicit drugs use Present on Admission - Present on Admission Any Indicators Present on Admission: No Review of Systems - Review of Systems All systems: reviewed and no additional remarkable complaints except (HPI) Past Patient History - Infectious Disease Hx of Infectious Diseases: None - Past Medical History & Family History Past Medical History?: Yes - Past Social History Smoking Status: Never Smoked Drugs: Denies Home Situation {Lives}: With Family - CARDIAC Hx Cardiac Disorders: No - PULMONARY Hx Respiratory Disorders: No - NEUROLOGICAL Hx Neurological Disorder: No - HEENT Hx HEENT Problems: No - RENAL Hx Chronic Kidney Disease: No - ENDOCRINE/METABOLIC Hx Endocrine Disorders: No - HEMATOLOGICAL/ONCOLOGICAL Hx Anemia: Yes Hx Human Immunodeficiency Virus (HIV): No - INTEGUMENTARY Hx Dermatological Problems: No - MUSCULOSKELETAL/RHEUMATOLOGICAL Hx Musculoskeletal Disorders: No Hx Falls: No - GASTROINTESTINAL Hx Gastrointestinal Disorders: Yes Hx Constipation: Yes - GENITOURINARY/GYNECOLOGICAL Hx Genitourinary Disorders: Yes (Diagnosis of endometriosis, uterine fibroid) Hx Urinary Tract Infection: Yes Other/Comment: endometriosis, ovarian cyst - PSYCHIATRIC Hx Anxiety: No Hx Bipolar Disorder: No Hx Depression: No Hx Paranoia: No Hx Post Traumatic Stress Disorder: No Hx Schizophrenia: No - SURGICAL HISTORY Hx Surgeries: Yes Other/Comment: left ovary removal. endometrial biopsy - ANESTHESIA Hx Anesthesia: Yes Hx Anesthesia Reactions: No Hx Malignant Hyperthermia: No Meds Allergies/Adverse Reactions: Allergies Allergy/AdvReac Type Severity Reaction Status Date / Time No Known Allergies Allergy Verified 05/28/17 11:36 Physical Exam - Constitutional Appears: No Acute Distress - Head Exam Head Exam: NORMAL INSPECTION - Eye Exam Eye Exam: EOMI, PERRL - ENT Exam ENT Exam: Mucous Membranes Moist - Respiratory Exam Respiratory Exam: Clear to Auscultation Bilateral, NORMAL BREATHING PATTERN - Cardiovascular Exam Cardiovascular Exam: REGULAR RHYTHM, +S1, +S2. absent: Tachycardia - GI/Abdominal Exam GI & Abdominal Exam: Normal Bowel Sounds, Soft, Tenderness (RLQ and pelvic, no rebound or guarding). absent: Distended - Extremities Exam Extremities exam: Negative for: calf tenderness, pedal edema - Neurological Exam Neurological exam: Alert, CN II-XII Intact, Oriented x3 - Skin Skin Exam: Dry, Warm Results - Vital Signs Recent Vital Signs: Last Vital Signs Temp 99.5 F 07/08/18 20:11 Pulse 89 07/08/18 20:11 Resp 18 07/08/18 20:11 BP 107/73 07/08/18 20:11 Pulse Ox 99 07/08/18 21:39 - Labs Result Diagrams: 07/08/18 17:19 07/08/18 12:00 Labs: Laboratory Results - last 24 hr 07/08/18 07/08/18 07/08/18 12:00 12:00 12:44 WBC 23.5 H D RBC 3.61 L Hgb 11.1 L Hct 33.3 L MCV 92.4 MCH 30.7 MCHC 33.2 RDW 13.4 Plt Count 291 MPV 9.1 Neut % (Auto) 92.3 H Lymph % (Auto) 3.3 L [place] % (Auto) 4.1 Eos % (Auto) 0.1 Baso % (Auto) 0.2 Neut # (Auto) 21.7 H Lymph # (Auto) 0.8 L [place] # (Auto) 1.0 H Eos # (Auto) 0.0 Baso # (Auto) 0.1 Neutrophils % (Manual) 89 H Band Neutrophils % 3 H Lymphocytes % (Manual) 3 L Monocytes % (Manual) 5 Eosinophils % (Manual) Platelet Estimate Normal RBC Morphology Normal Anisocytosis (manual) pO2 VBG pH VBG pCO2 VBG HCO3 VBG Total CO2 VBG O2 Sat (Calc) VBG Base Excess VBG Potassium Glucose Lactate FiO2 Sodium 136 Potassium 3.8 Chloride 103 Carbon Dioxide 22 Anion Gap 15 BUN 8 Creatinine 0.5 L Est GFR ( Amer) > 60 Est GFR (Non-Af Amer) > 60 POC Glucose (mg/dL) Random Glucose 108 H Calcium 8.7 Venous Blood Potassium Urine Color Yellow Urine Clarity Slighty-cloudy Urine pH 6.0 Ur Specific [place] 1.013 Urine Protein 30 Urine Glucose (UA) Neg Urine Ketones Trace Urine Blood Small Urine Nitrate Negative Urine Bilirubin Negative Urine Urobilinogen 0.2-1.0 Ur Leukocyte Esterase Neg Urine RBC (Auto) 4 H Urine Microscopic WBC 6 H Urine Bacteria Rare Hyaline Casts 0-2 Blood Type Antibody Screen BBK History Checked 07/08/18 07/08/18 07/08/18 13:03 13:30 17:01 WBC RBC Hgb Hct MCV MCH MCHC RDW Plt Count MPV Neut % (Auto) Lymph % (Auto) [place] % (Auto) Eos % (Auto) Baso % (Auto) Neut # (Auto) Lymph # (Auto) [place] # (Auto) Eos # (Auto) Baso # (Auto) Neutrophils % (Manual) Band Neutrophils % Lymphocytes % (Manual) Monocytes % (Manual) Eosinophils % (Manual) Platelet Estimate RBC Morphology Anisocytosis (manual) pO2 14 L VBG pH 7.41 VBG pCO2 44 VBG HCO3 25.2 VBG Total CO2 29.3 H VBG O2 Sat (Calc) 22.1 L VBG Base Excess 2.8 H VBG Potassium 3.9 Glucose 126 H Lactate 1.3 FiO2 21.0 Sodium 136.0 Potassium Chloride 103.0 Carbon Dioxide Anion Gap BUN Creatinine Est GFR ( Amer) Est GFR (Non-Af Amer) POC Glucose (mg/dL) 110 Random Glucose Calcium Venous Blood Potassium 3.9 Urine Color Urine Clarity Urine pH Ur Specific [place] Urine Protein Urine Glucose (UA) Urine Ketones Urine Blood Urine Nitrate Urine Bilirubin Urine Urobilinogen Ur Leukocyte Esterase Urine RBC (Auto) Urine Microscopic WBC Urine Bacteria Hyaline Casts Blood Type A POSITIVE Antibody Screen Negative BBK History Checked Patient has bt 07/08/18 17:19 WBC 24.9 H RBC 3.32 L Hgb 10.0 L Hct 30.6 L MCV 92.2 MCH 30.1 MCHC 32.6 L RDW 13.5 Plt Count 212 MPV 7.9 Neut % (Auto) 90.0 H Lymph % (Auto) 4.9 L [place] % (Auto) 4.5 Eos % (Auto) 0.4 Baso % (Auto) 0.2 Neut # (Auto) 22.4 H Lymph # (Auto) 1.2 [place] # (Auto) 1.1 H Eos # (Auto) 0.1 Baso # (Auto) 0.0 Neutrophils % (Manual) 89 H Band Neutrophils % 2 Lymphocytes % (Manual) 4 L Monocytes % (Manual) 4 Eosinophils % (Manual) 1 Platelet Estimate Normal RBC Morphology Anisocytosis (manual) Slight pO2 VBG pH VBG pCO2 VBG HCO3 VBG Total CO2 VBG O2 Sat (Calc) VBG Base Excess VBG Potassium Glucose Lactate FiO2 Sodium Potassium Chloride Carbon Dioxide Anion Gap BUN Creatinine Est GFR ( Amer) Est GFR (Non-Af Amer) POC Glucose (mg/dL) Random Glucose Calcium Venous Blood Potassium Urine Color Urine Clarity Urine pH Ur Specific [place] Urine Protein Urine Glucose (UA) Urine Ketones Urine Blood Urine Nitrate Urine Bilirubin Urine Urobilinogen Ur Leukocyte Esterase Urine RBC (Auto) Urine Microscopic WBC Urine Bacteria Hyaline Casts Blood Type Antibody Screen BBK History Checked Assessment & Plan - Assessment and Plan (Free Text) Assessment: 38 y/o F with hx of uterine fibroids, endometriosis, menorrhagia and anemia admitted for abdominal pain and leukocytosis. Plan: Abdominal pain Leukocytosis r/o abdominal sepsis - admit to med/surg - VSS - afebrile, WBC 24.9, lactate 1.3 - CT abd/pelvis: Distended gallbladder with gallstones. Markedly enlarged fibroid uterus measuring 12.4 x 9.9 14.7cm. Right ovarian cystic mass measuring 4.5 x 4.3cm. Possible dilatation of the Right Fallopian tube or adjacent fluid filled bowel at the Right adnexal region. Similar appearance to previous study. - General surgery consulted - start empiric Rocephin IV daily - NPO - IVF - Pain management - f/u labs and cultures in am Uterine fibroid/ menorrhagia Complex R ovarian cyst - TVUS: Limited ultrasound due to patient's pain. Apparent decrease in size of 5.4 x 5.9 x 5.5 cm intramural posterior wall fibroid in the lower uterine segment, although direct comparison is difficult due to differences in slice selection. 3.5 x 2.1 x 1.5 cm complicated cyst in the right ovary. Blood flow was not documented in the right ovary. - CLINICAL PHARMACIST consulted, recs appreciated - pain management Anemia, normocytic - h/o heavy periods - stable, asymptomatic - f/u cbc - h/o PRBC in the past DVT ppx - scd for now, pending surgery eval Case seen/discussed with Dr Champagne <Lazaro Champagne - Last Filed: 07/09/18 07:11> Results - Vital Signs Recent Vital Signs: Last Vital Signs Temp 98.1 F 07/09/18 01:15 Pulse 89 07/09/18 01:15 Resp 19 07/09/18 01:15 BP 98/81 L 07/09/18 01:15 Pulse Ox 98 07/09/18 01:15 - Labs Result Diagrams: 07/08/18 17:19 07/08/18 12:00 Labs: Laboratory Results - last 24 hr 07/08/18 07/08/18 07/08/18 12:00 12:00 12:44 WBC 23.5 H D RBC 3.61 L Hgb 11.1 L Hct 33.3 L MCV 92.4 MCH 30.7 MCHC 33.2 RDW 13.4 Plt Count 291 MPV 9.1 Neut % (Auto) 92.3 H Lymph % (Auto) 3.3 L [place] % (Auto) 4.1 Eos % (Auto) 0.1 Baso % (Auto) 0.2 Neut # (Auto) 21.7 H Lymph # (Auto) 0.8 L [place] # (Auto) 1.0 H Eos # (Auto) 0.0 Baso # (Auto) 0.1 Neutrophils % (Manual) 89 H Band Neutrophils % 3 H Lymphocytes % (Manual) 3 L Monocytes % (Manual) 5 Eosinophils % (Manual) Platelet Estimate Normal RBC Morphology Normal Anisocytosis (manual) pO2 VBG pH VBG pCO2 VBG HCO3 VBG Total CO2 VBG O2 Sat (Calc) VBG Base Excess VBG Potassium Glucose Lactate FiO2 Sodium 136 Potassium 3.8 Chloride 103 Carbon Dioxide 22 Anion Gap 15 BUN 8 Creatinine 0.5 L Est GFR ( Amer) > 60 Est GFR (Non-Af Amer) > 60 POC Glucose (mg/dL) Random Glucose 108 H Calcium 8.7 Venous Blood Potassium Urine Color Yellow Urine Clarity Slighty-cloudy Urine pH 6.0 Ur Specific [place] 1.013 Urine Protein 30 Urine Glucose (UA) Neg Urine Ketones Trace Urine Blood Small Urine Nitrate Negative Urine Bilirubin Negative Urine Urobilinogen 0.2-1.0 Ur Leukocyte Esterase Neg Urine RBC (Auto) 4 H Urine Microscopic WBC 6 H Urine Bacteria Rare Hyaline Casts 0-2 Blood Type Antibody Screen BBK History Checked 07/08/18 07/08/18 07/08/18 13:03 13:30 17:01 WBC RBC Hgb Hct MCV MCH MCHC RDW Plt Count MPV Neut % (Auto) Lymph % (Auto) [place] % (Auto) Eos % (Auto) Baso % (Auto) Neut # (Auto) Lymph # (Auto) [place] # (Auto) Eos # (Auto) Baso # (Auto) Neutrophils % (Manual) Band Neutrophils % Lymphocytes % (Manual) Monocytes % (Manual) Eosinophils % (Manual) Platelet Estimate RBC Morphology Anisocytosis (manual) pO2 14 L VBG pH 7.41 VBG pCO2 44 VBG HCO3 25.2 VBG Total CO2 29.3 H VBG O2 Sat (Calc) 22.1 L VBG Base Excess 2.8 H VBG Potassium 3.9 Glucose 126 H Lactate 1.3 FiO2 21.0 Sodium 136.0 Potassium Chloride 103.0 Carbon Dioxide Anion Gap BUN Creatinine Est GFR ( Amer) Est GFR (Non-Af Amer) POC Glucose (mg/dL) 110 Random Glucose Calcium Venous Blood Potassium 3.9 Urine Color Urine Clarity Urine pH Ur Specific [place] Urine Protein Urine Glucose (UA) Urine Ketones Urine Blood Urine Nitrate Urine Bilirubin Urine Urobilinogen Ur Leukocyte Esterase Urine RBC (Auto) Urine Microscopic WBC Urine Bacteria Hyaline Casts Blood Type A POSITIVE Antibody Screen Negative BBK History Checked Patient has bt 07/08/18 17:19 WBC 24.9 H RBC 3.32 L Hgb 10.0 L Hct 30.6 L MCV 92.2 MCH 30.1 MCHC 32.6 L RDW 13.5 Plt Count 212 MPV 7.9 Neut % (Auto) 90.0 H Lymph % (Auto) 4.9 L [place] % (Auto) 4.5 Eos % (Auto) 0.4 Baso % (Auto) 0.2 Neut # (Auto) 22.4 H Lymph # (Auto) 1.2 [place] # (Auto) 1.1 H Eos # (Auto) 0.1 Baso # (Auto) 0.0 Neutrophils % (Manual) 89 H Band Neutrophils % 2 Lymphocytes % (Manual) 4 L Monocytes % (Manual) 4 Eosinophils % (Manual) 1 Platelet Estimate Normal RBC Morphology Anisocytosis (manual) Slight pO2 VBG pH VBG pCO2 VBG HCO3 VBG Total CO2 VBG O2 Sat (Calc) VBG Base Excess VBG Potassium Glucose Lactate FiO2 Sodium Potassium Chloride Carbon Dioxide Anion Gap BUN Creatinine Est GFR ( Amer) Est GFR (Non-Af Amer) POC Glucose (mg/dL) Random Glucose Calcium Venous Blood Potassium Urine Color Urine Clarity Urine pH Ur Specific [place] Urine Protein Urine Glucose (UA) Urine Ketones Urine Blood Urine Nitrate Urine Bilirubin Urine Urobilinogen Ur Leukocyte Esterase Urine RBC (Auto) Urine Microscopic WBC Urine Bacteria Hyaline Casts Blood Type Antibody Screen BBK History Checked Assessment & Plan - Assessment and Plan (Free Text) Plan: Agree with assessment and plan as per above, case was discussed with me and treatment plan enacted. Pt to be seen and evaluated by repairer welding equipment and Surgery for RLQ pain and possible cholecystitis. Will continue on present management. - Date & Time Date: 07/09/18 Time: 07:10
--- NOTE | 2018-07-08 22:32 | CP.PCM.CON ---
<Evelyne Haskins - Last Filed: 07/08/18 22:27> History of Present Illness - History of Present Illness History of Present Illness: General Surgery - Dr. Sierra 38yo F w/ hx of endometriosis presents to hospital with 1 day of lower abdominal pain. Pt states the pain began yesterday. She reports she just started menstruation and this is typical pain that she has during her cycle, except this time it was more severe and prompted her to come to the ED. She describes it as lower abdominal and pelvic B/L and also with some radiation to the back, a 5/10 currently, cramping pain. She usually takes naproxen which helps but this time did not help the pain. She denies any associated symptoms including Nausea/Vomiting, Fevers/chills, Diarrhea/Constipation, Dysuria/Hematuria, SOB or chest pain. PMH: Endometriosis PSH: L oopherectomy Home meds: OCPs NKDA Pt was seen in the ED. Labs significant for leukocytosis. A Transvaginal u/s was done which showed a complex R ovarian cyst and no blood flow. CT abdomen/pelvis showed an enlarged fibroid uterus and R ovarian cystic mass, as well as a distended gallbladder with gallstones. Surgery was consulted. Review of Systems - Review of Systems All systems: reviewed and no additional remarkable complaints except (as per HPI) Past Patient History - Infectious Disease Hx of Infectious Diseases: None - Past Medical History & Family History Past Medical History?: Yes - Past Social History Smoking Status: Never Smoked Drugs: Denies Home Situation {Lives}: With Family - CARDIAC Hx Cardiac Disorders: No - PULMONARY Hx Respiratory Disorders: No - NEUROLOGICAL Hx Neurological Disorder: No - HEENT Hx HEENT Problems: No - RENAL Hx Chronic Kidney Disease: No - ENDOCRINE/METABOLIC Hx Endocrine Disorders: No - HEMATOLOGICAL/ONCOLOGICAL Hx Anemia: Yes Hx Human Immunodeficiency Virus (HIV): No - INTEGUMENTARY Hx Dermatological Problems: No - MUSCULOSKELETAL/RHEUMATOLOGICAL Hx Musculoskeletal Disorders: No Hx Falls: No - GASTROINTESTINAL Hx Gastrointestinal Disorders: Yes Hx Constipation: Yes - GENITOURINARY/GYNECOLOGICAL Hx Genitourinary Disorders: Yes (Diagnosis of endometriosis, uterine fibroid) Hx Urinary Tract Infection: Yes Other/Comment: endometriosis, ovarian cyst - PSYCHIATRIC Hx Anxiety: No Hx Bipolar Disorder: No Hx Depression: No Hx Paranoia: No Hx Post Traumatic Stress Disorder: No Hx Schizophrenia: No - SURGICAL HISTORY Hx Surgeries: Yes Other/Comment: left ovary removal. endometrial biopsy - ANESTHESIA Hx Anesthesia: Yes Hx Anesthesia Reactions: No Hx Malignant Hyperthermia: No Meds Allergies/Adverse Reactions: Allergies Allergy/AdvReac Type Severity Reaction Status Date / Time No Known Allergies Allergy Verified 05/28/17 11:36 - Medications Medications: Current Medications Lactated Ringer's (Lactated Ringer's) 1,000 mls @ 80 mls/hr IV .[id number] [facility] Piperacillin Sod/Tazobactam (Sod 3.375 gm/ Sodium Chloride) 100 mls @ 100 mls/hr IVPB Q6 [facility]; Protocol Physical Exam - Constitutional Appears: Well, No Acute Distress - Head Exam Head Exam: ATRAUMATIC, NORMAL INSPECTION, NORMOCEPHALIC - Eye Exam Eye Exam: Normal appearance Pupil Exam: NORMAL ACCOMODATION - ENT Exam ENT Exam: Mucous Membranes Moist - Respiratory Exam Respiratory Exam: NORMAL BREATHING PATTERN. absent: Respiratory Distress - Cardiovascular Exam Cardiovascular Exam: REGULAR RHYTHM - GI/Abdominal Exam GI & Abdominal Exam: Firm (suprapubic, palpable fibroid uterus), Soft, Tenderness (suprapubic). absent: Distended, Guarding, Hernia, Rebound, Rigid - Neurological Exam Neurological exam: Alert, Oriented x3 - Psychiatric Exam Psychiatric exam: Normal Affect, Normal Mood - Skin Skin Exam: Dry, Intact Results - Vital Signs Recent Vital Signs: Last Vital Signs Temp 99.5 F 07/08/18 20:11 Pulse 89 07/08/18 20:11 Resp 18 07/08/18 20:11 BP 107/73 07/08/18 20:11 Pulse Ox 99 07/08/18 21:39 - Labs Result Diagrams: 07/08/18 17:19 07/08/18 12:00 Labs: Laboratory Results - last 24 hr 07/08/18 07/08/18 07/08/18 12:00 12:00 12:44 WBC 23.5 H D RBC 3.61 L Hgb 11.1 L Hct 33.3 L MCV 92.4 MCH 30.7 MCHC 33.2 RDW 13.4 Plt Count 291 MPV 9.1 Neut % (Auto) 92.3 H Lymph % (Auto) 3.3 L Calloway % (Auto) 4.1 Eos % (Auto) 0.1 Baso % (Auto) 0.2 Neut # (Auto) 21.7 H Lymph # (Auto) 0.8 L Callow[place] # (Auto) 1.0 H Eos # (Auto) 0.0 Baso # (Auto) 0.1 Neutrophils % (Manual) 89 H Band Neutrophils % 3 H Lymphocytes % (Manual) 3 L Monocytes % (Manual) 5 Eosinophils % (Manual) Platelet Estimate Normal RBC Morphology Normal Anisocytosis (manual) pO2 VBG pH VBG pCO2 VBG HCO3 VBG Total CO2 VBG O2 Sat (Calc) VBG Base Excess VBG Potassium Glucose Lactate FiO2 Sodium 136 Potassium 3.8 Chloride 103 Carbon Dioxide 22 Anion Gap 15 BUN 8 Creatinine 0.5 L Est GFR ( Amer) > 60 Est GFR (Non-Af Amer) > 60 POC Glucose (mg/dL) Random Glucose 108 H Calcium 8.7 Venous Blood Potassium Urine Color Yellow Urine Clarity Slighty-cloudy Urine pH 6.0 Ur Specific [place] 1.013 Urine Protein 30 Urine Glucose (UA) Neg Urine Ketones Trace Urine Blood Small Urine Nitrate Negative Urine Bilirubin Negative Urine Urobilinogen 0.2-1.0 Ur Leukocyte Esterase Neg Urine RBC (Auto) 4 H Urine Microscopic WBC 6 H Urine Bacteria Rare Hyaline Casts 0-2 Blood Type Antibody Screen BBK History Checked 07/08/18 07/08/18 07/08/18 13:03 13:30 17:01 WBC RBC Hgb Hct MCV MCH MCHC RDW Plt Count MPV Neut % (Auto) Lymph % (Auto) Calloway % (Auto) Eos % (Auto) Baso % (Auto) Neut # (Auto) Lymph # (Auto) Calloway # (Auto) Eos # (Auto) Baso # (Auto) Neutrophils % (Manual) Band Neutrophils % Lymphocytes % (Manual) Monocytes % (Manual) Eosinophils % (Manual) Platelet Estimate RBC Morphology Anisocytosis (manual) pO2 14 L VBG pH 7.41 VBG pCO2 44 VBG HCO3 25.2 VBG Total CO2 29.3 H VBG O2 Sat (Calc) 22.1 L VBG Base Excess 2.8 H VBG Potassium 3.9 Glucose 126 H Lactate 1.3 FiO2 21.0 Sodium 136.0 Potassium Chloride 103.0 Carbon Dioxide Anion Gap BUN Creatinine Est GFR ( Amer) Est GFR (Non-Af Amer) POC Glucose (mg/dL) 110 Random Glucose Calcium Venous Blood Potassium 3.9 Urine Color Urine Clarity Urine pH Ur Specific [place] Urine Protein Urine Glucose (UA) Urine Ketones Urine Blood Urine Nitrate Urine Bilirubin Urine Urobilinogen Ur Leukocyte Esterase Urine RBC (Auto) Urine Microscopic WBC Urine Bacteria Hyaline Casts Blood Type A POSITIVE Antibody Screen Negative BBK History Checked Patient has bt 07/08/18 17:19 WBC 24.9 H RBC 3.32 L Hgb 10.0 L Hct 30.6 L MCV 92.2 MCH 30.1 MCHC 32.6 L RDW 13.5 Plt Count 212 MPV 7.9 Neut % (Auto) 90.0 H Lymph % (Auto) 4.9 L Calloway % (Auto) 4.5 Eos % (Auto) 0.4 Baso % (Auto) 0.2 Neut # (Auto) 22.4 H Lymph # (Auto) 1.2 Calloway # (Auto) 1.1 H Eos # (Auto) 0.1 Baso # (Auto) 0.0 Neutrophils % (Manual) 89 H Band Neutrophils % 2 Lymphocytes % (Manual) 4 L Monocytes % (Manual) 4 Eosinophils % (Manual) 1 Platelet Estimate Normal RBC Morphology Anisocytosis (manual) Slight pO2 VBG pH VBG pCO2 VBG HCO3 VBG Total CO2 VBG O2 Sat (Calc) VBG Base Excess VBG Potassium Glucose Lactate FiO2 Sodium Potassium Chloride Carbon Dioxide Anion Gap BUN Creatinine Est GFR ( Amer) Est GFR (Non-Af Amer) POC Glucose (mg/dL) Random Glucose Calcium Venous Blood Potassium Urine Color Urine Clarity Urine pH Ur Specific [place] Urine Protein Urine Glucose (UA) Urine Ketones Urine Blood Urine Nitrate Urine Bilirubin Urine Urobilinogen Ur Leukocyte Esterase Urine RBC (Auto) Urine Microscopic WBC Urine Bacteria Hyaline Casts Blood Type Antibody Screen BBK History Checked - Imaging and Cardiology CT scan - abdomen Status: Image reviewed by me, Report reviewed by me Assessment & Plan - Assessment and Plan (Free Text) Assessment: 38 yo F w/ pelvic pain, leukocytosis, Surgery consulted to r/o cholecystitis -Maintain NPO -IVF hydration -IV Abx - zosyn -F/U HIDA scan and LFTs to further evaluate for any GB pathology -F/U BACK UP WORKER plan DW Dr. Mariela Haskins PGY4 <Peterson Sierra - Last Filed: 07/09/18 16:24> History of Present Illness - History of Present Illness History of Present Illness: Patient was seen and examined at the bedside. Agree with resident's note above. Meds - Medications Medications: Current Medications Acetaminophen (Tylenol 120mg Supp) 120 mg [place] Q4 PRN PRN Reason: Pain, Mild (1-3) Enoxaparin Sodium (Lovenox) 40 mg SC DAILY [facility]; Protocol Last Admin: 07/09/18 09:05 Dose: 40 mg Home Med (Home Med) 1 unit PO DAILY [facility] Lactated Ringer's (Lactated Ringer's) 1,000 mls @ 80 mls/hr IV .[id number] [facility] Last Admin: 07/09/18 11:36 Dose: 80 mls/hr Metronidazole (Flagyl 500mg/100ml Ns) 100 mls @ 100 mls/hr IVPB Q8 [facility]; Protocol Last Admin: 07/09/18 11:30 Dose: 100 mls/hr Ceftriaxone Sodium 1 gm/ (Sodium Chloride) 100 mls @ 100 mls/hr IVPB Q12H [facility]; Protocol Last Admin: 07/09/18 11:36 Dose: Not Given Oxycodone/Acetaminophen (Percocet 5/325 Mg Tab) 1 tab PO Q6 PRN PRN Reason: Pain, moderate (4-7) Stop: 07/11/18 23:07 Potassium Chloride (K-Dur 20 Meq Er Tab) 40 meq PO BID [facility] Stop: 07/10/18 09:01 Last Admin: 07/09/18 11:30 Dose: 40 meq Physical Exam - GI/Abdominal Exam Additional comments: negative Doe's sign, no rebound, no guarding Results - Vital Signs Recent Vital Signs: Last Vital Signs Temp 97.4 F L 07/09/18 08:48 Pulse 100 H 07/09/18 08:48 Resp 20 07/09/18 08:48 BP 99/62 L 07/09/18 08:48 Pulse Ox 99 07/09/18 08:48 - Labs Result Diagrams: 07/09/18 05:30 07/09/18 05:30 Labs: Laboratory Results - last 24 hr 07/08/18 07/08/18 07/09/18 17:01 17:19 05:30 WBC 24.9 H 23.9 H RBC 3.32 L 2.89 L Hgb 10.0 L 8.8 L Hct 30.6 L 26.9 L MCV 92.2 93.1 MCH 30.1 30.5 MCHC 32.6 L 32.8 L RDW 13.5 13.5 Plt Count 212 194 MPV 7.9 8.1 Neut % (Auto) 90.0 H 91.6 H Lymph % (Auto) 4.9 L 4.0 L Calloway % (Auto) 4.5 3.9 Eos % (Auto) 0.4 0.3 Baso % (Auto) 0.2 0.2 Neut # (Auto) 22.4 H 21.9 H Lymph # (Auto) 1.2 1.0 Calloway # (Auto) 1.1 H 0.9 H Eos # (Auto) 0.1 0.1 Baso # (Auto) 0.0 0.0 Neutrophils % (Manual) 89 H 79 H Band Neutrophils % 2 17 H* Lymphocytes % (Manual) 4 L 2 L Monocytes % (Manual) 4 2 Eosinophils % (Manual) 1 Platelet Estimate Normal Normal Large Platelets Present Giant Platelets Present Hypochromasia (manual) Slight Anisocytosis (manual) Slight Slight pO2 VBG pH VBG pCO2 VBG HCO3 VBG Total CO2 VBG O2 Sat (Calc) VBG Base Excess VBG Potassium Glucose Lactate FiO2 Sodium Potassium Chloride Carbon Dioxide Anion Gap BUN Creatinine Est GFR ( Amer) Est GFR (Non-Af Amer) POC Glucose (mg/dL) 110 Random Glucose Calcium Total Bilirubin AST ALT Alkaline Phosphatase Total Protein Albumin Globulin Albumin/Globulin Ratio Venous Blood Potassium 07/09/18 07/09/18 05:30 10:06 WBC RBC Hgb Hct MCV MCH MCHC RDW Plt Count MPV Neut % (Auto) Lymph % (Auto) Callow[place] % (Auto) Eos % (Auto) Baso % (Auto) Neut # (Auto) Lymph # (Auto) C[place] # (Auto) Eos # (Auto) Baso # (Auto) Neutrophils % (Manual) Band Neutrophils % Lymphocytes % (Manual) Monocytes % (Manual) Eosinophils % (Manual) Platelet Estimate Large Platelets Giant Platelets Hypochromasia (manual) Anisocytosis (manual) pO2 36 VBG pH 7.35 VBG pCO2 37 L VBG HCO3 20.4 VBG Total CO2 21.5 L VBG O2 Sat (Calc) 73.5 H VBG Base Excess -4.7 L VBG Potassium 3.8 Glucose 64 L Lactate 0.9 FiO2 21.0 Sodium 137 136.0 Potassium 3.3 L Chloride 107 106.0 Carbon Dioxide 20 L Anion Gap 13 BUN 3 L Creatinine 0.5 L Est GFR ( Amer) > 60 Est GFR (Non-Af Amer) > 60 POC Glucose (mg/dL) Random Glucose 77 Calcium 7.9 L Total Bilirubin 0.4 AST 20 ALT 26 Alkaline Phosphatase 59 Total Protein 5.8 L Albumin 3.0 L Globulin 2.8 Albumin/Globulin Ratio 1.1 Venous Blood Potassium 3.8 Assessment & Plan - Assessment and Plan (Free Text) Plan: - Clear liquid diet - pain control - IV fluid hydration - Continue antibiotics - Will await for the HIDA scan - BACK UP WORKER follow up - Repeat labs in am - Patient was d/w Dr. Jackson - Will follow
[2018-07-08] MEDS: Lactated Ringer's 1,000 ML IV SCH (22:36)
[2018-07-08] MEDS ORDERED: Oxycodone/Acetaminophen 5/325 mg Tab PO PRN (23:06)
[2018-07-09] MEDS ORDERED: Pneumococcal 23-Valent Vaccine IM ONE (00:13)
[2018-07-09] MEDS ORDERED: Piperacillin/Tazobact 3.375 GM in Sodium Chloride 0.9% 100 ML IVPB SCH (04:00)
[2018-07-09 07:21] LABS: BASO % 0.2 % (0.0-2.0); EOS # 0.1 K/uL (0.0-0.7); EOS % 0.3 % (0.0-4.0); HEMOGLOBIN 8.8 g/dL (12.0-16.0); MEAN CELL VOLUME 93.1 fl (81.0-99.0); MEAN CORPUSCULAR HEMOGLOBIN 30.5 pg (27.0-31.0); MEAN CORPUSCULAR HGB CONC 32.8 g/dL (33.0-37.0); MEAN PLATELET VOLUME 8.1 fl (7.2-11.7); MONO # 0.9 K/uL (0.0-0.8); MONO % 3.9 % (0.0-10.0); NEUT # 21.9 K/uL (1.8-7.0); NEUT % 91.6 % (50.0-75.0); PLATELET COUNT 194 K/uL (130-400); RBC 2.89 Mil/uL (3.80-5.20); RED CELL DISTRIBUTION WIDTH 13.5 % (11.5-14.5); WHITE BLOOD COUNT 23.9 K/uL (4.8-10.8)
--- NOTE | 2018-07-09 07:58 | CP.PCM.PN ---
<Evelyne Haskins - Last Filed: 07/09/18 07:56> Subjective - Date & Time of Evaluation Date of Evaluation: 07/09/18 Time of Evaluation: 07:56 - Subjective Subjective: General Surgery - Dr. Sierra Pt S&E. CYNDEE. PT states her pain is slightly improved this morning. She is hungry and thirsty but aware need for NPO d/t HIDA scan today. she denies any nausea/vomiting/diarrhea/constipation/fevers/chills/sob/chest pain. Objective - Vital Signs/Intake and Output Vital Signs (last 24 hours): Temp Pulse Resp BP Pulse Ox 98.1 F 89 19 98/81 L 98 07/09/18 01:15 07/09/18 01:15 07/09/18 01:15 07/09/18 01:15 07/09/18 01:15 - Medications Medications: Current Medications Acetaminophen (Tylenol 120mg Supp) 120 mg [place] Q4 PRN PRN Reason: Pain, Mild (1-3) Enoxaparin Sodium (Lovenox) 40 mg SC DAILY [facility]; Protocol Lactated Ringer's (Lactated Ringer's) 1,000 mls @ 80 mls/hr IV .[id number] [facility] Last Admin: 07/08/18 22:36 Dose: 80 mls/hr Ceftriaxone Sodium 1 gm/ (Sodium Chloride) 100 mls @ 100 mls/hr IVPB DAILY [facility]; Protocol Oxycodone/Acetaminophen (Percocet 5/325 Mg Tab) 1 tab PO Q6 PRN PRN Reason: Pain, moderate (4-7) Stop: 07/11/18 23:07 - Labs Labs: 07/09/18 05:30 07/08/18 12:00 - Constitutional Appears: No Acute Distress - Head Exam Head Exam: ATRAUMATIC, NORMAL INSPECTION, NORMOCEPHALIC - Eye Exam Eye Exam: Normal appearance - Respiratory Exam Respiratory Exam: NORMAL BREATHING PATTERN. absent: Respiratory Distress - Cardiovascular Exam Cardiovascular Exam: REGULAR RHYTHM - GI/Abdominal Exam GI & Abdominal Exam: Firm, Soft, Tenderness (mild ttp suprapubic). absent: Distended, Guarding, Rigid, Rebound - Neurological Exam Neurological Exam: Alert, Oriented x3 - Psychiatric Exam Psychiatric exam: Normal Affect, Normal Mood - Skin Skin Exam: Dry, Intact Assessment and Plan - Assessment and Plan (Free Text) Assessment: 38 yo F w/ pelvic pain, leukocytosis, Surgery consulted to r/o cholecystitis -Maintain NPO for HIDA scan today -Continue IVF -Continue IV Abx - Rocephin as per medicine team -F/U HIDA scan and LFTs -F/U COMMERCIAL MANAGER plan DW Dr. Mariela Haskins PGY4 <Peterson Sierra - Last Filed: 07/09/18 16:15> Subjective - Date & Time of Evaluation Time of Evaluation: 15:30 - Subjective Subjective: Patient was seen and examined at the bedside. Agree with resident's note above. Patient denies any RUQ abdominal pain and states that all of her pain is in the lower abdomen. Objective - Vital Signs/Intake and Output Vital Signs (last 24 hours): Temp Pulse Resp BP Pulse Ox 97.4 F L 100 H 20 99/62 L 99 07/09/18 08:48 07/09/18 08:48 07/09/18 08:48 07/09/18 08:48 07/09/18 08:48 - Medications Medications: Current Medications Acetaminophen (Tylenol 120mg Supp) 120 mg [place] Q4 PRN PRN Reason: Pain, Mild (1-3) Enoxaparin Sodium (Lovenox) 40 mg SC DAILY [facility]S [facility]CLUDE 234 BEDS AT THE [facility]; Protocol Last Admin: 07/09/18 09:05 Dose: 40 mg Home Med (Home Med) 1 unit PO DAILY [facility] Lactated Ringer's (Lactated Ringer's) 1,000 mls @ 80 mls/hr IV .[id number] [facility] Last Admin: 07/09/18 11:36 Dose: 80 mls/hr Metronidazole (Flagyl 500mg/100ml Ns) 100 mls @ 100 mls/hr IVPB Q8 [facility]; Protocol Last Admin: 07/09/18 11:30 Dose: 100 mls/hr Ceftriaxone Sodium 1 gm/ (Sodium Chloride) 100 mls @ 100 mls/hr IVPB Q12H COUNTS INCLUDE 234 BEDS AT THE [facility]; Protocol Last Admin: 07/09/18 11:36 Dose: Not Given Oxycodone/Acetaminophen (Percocet 5/325 Mg Tab) 1 tab PO Q6 PRN PRN Reason: Pain, moderate (4-7) Stop: 07/11/18 23:07 Potassium Chloride (K-Dur 20 Meq Er Tab) 40 meq PO BID [facility] Stop: 07/10/18 09:01 Last Admin: 07/09/18 11:30 Dose: 40 meq - Labs Labs: 07/09/18 05:30 07/09/18 05:30 - GI/Abdominal Exam Additional comments: soft, mildly tender in the lower abdomen, ND, BS+, no rebound, no guarding, negative Doe's sign, well healed scar from prior left oophorectomy Assessment and Plan - Assessment and Plan (Free Text) Plan: - Clear liquid diet - pain control - Continue antibiotics - Will await for the HIDA scan - Repeat labs in am - COMMERCIAL MANAGER follow up - Patient was d/w Dr. Jackson - Will follow
[2018-07-09 08:11] LABS: ALB/GLOB RATIO 1.1 (1.0-2.1); ALT/SGPT 26 U/L (9-52); AST/SGOT 20 U/L (14-36); BLOOD UREA NITROGEN 3 mg/dl (7-17); CALCIUM 7.9 mg/dL (8.4-10.2); GFR NON-AFRICAN AMERICAN > 60
[2018-07-09 08:19] LABS: BANDS 17 % (0-2); LYMPHOCYTE 2 % (20-50); MONOCYTE 2 % (0-10); NEUTROPHIL 79 % (42-75); PLATELET ESTIMATE NORMAL (NORMAL); TOTAL CELLS COUNTED 100
[2018-07-09 08:20] LABS: ANISOCYTOSIS SLIGHT; GIANT PLATELETS PRESENT; HYPOCHROMIC SLIGHT; LARGE PLATELETS PRESENT
[2018-07-09] MEDS: Enoxaparin 40 mg Syringe SC SCH (09:05)
[2018-07-09] MEDS: Potassium Chloride 20 mEq ER Tab PO SCH ×5 (09:08→17:15)
[2018-07-09 10:09] LABS: VENOUS BLOOD GAS BASE EXCESS -4.7 mmol/L (0.0-2.0); VENOUS BLOOD GAS PCO2 37 mmHg (40-60); VENOUS BLOOD GAS PO2 36 mm/Hg (30-55); VENOUS BLOOD PH 7.35 (7.32-7.43)
--- NOTE | 2018-07-09 11:03 | CP.PCM.PN ---
<Waldo Beaulieu - Last Filed: 07/09/18 11:19> Subjective - Date & Time of Evaluation Date of Evaluation: 07/09/18 Time of Evaluation: 09:20 - Subjective Subjective: Patient seen at bedside not acute distress. Still c/o RLQ pain. Denies RUQ or back pain but admits right lower back pain yesterday. Denies vomiting, nausea, SOB, CP, diarrhea. Patient had been tolerating PO prior to admission. Afebrile Objective - Vital Signs/Intake and Output Vital Signs (last 24 hours): Temp Pulse Resp BP Pulse Ox 97.4 F L 100 H 20 99/62 L 99 07/09/18 08:48 07/09/18 08:48 07/09/18 08:48 07/09/18 08:48 07/09/18 08:48 - Medications Medications: Current Medications Acetaminophen (Tylenol 120mg Supp) 120 mg [place] Q4 PRN PRN Reason: Pain, Mild (1-3) Enoxaparin Sodium (Lovenox) 40 mg SC DAILY [facility]; Protocol Last Admin: 07/09/18 09:05 Dose: 40 mg Lactated Ringer's (Lactated Ringer's) 1,000 mls @ 80 mls/hr IV .[id number] [facility] Last Admin: 07/08/18 22:36 Dose: 80 mls/hr Metronidazole (Flagyl 500mg/100ml Ns) 100 mls @ 100 mls/hr IVPB Q8 [facility]; Protocol Ceftriaxone Sodium 1 gm/ (Sodium Chloride) 100 mls @ 100 mls/hr IVPB Q12H [facility]; Protocol Oxycodone/Acetaminophen (Percocet 5/325 Mg Tab) 1 tab PO Q6 PRN PRN Reason: Pain, moderate (4-7) Stop: 07/11/18 23:07 Potassium Chloride (K-Dur 20 Meq Er Tab) 40 meq PO BID [facility] Stop: 07/10/18 09:01 Last Admin: 07/09/18 09:12 Dose: Not Given - Labs Labs: 07/09/18 05:30 07/09/18 05:30 - Constitutional Appears: Non-toxic - Eye Exam Eye Exam: EOMI, PERRL - ENT Exam ENT Exam: Mucous Membranes Moist - Respiratory Exam Respiratory Exam: Clear to Ausculation Bilateral, NORMAL BREATHING PATTERN. absent: Decreased Breath Sounds, Rales, Wheezes - Cardiovascular Exam Cardiovascular Exam: REGULAR RHYTHM, +S1, +S2. absent: Gallop - GI/Abdominal Exam GI & Abdominal Exam: Soft, Tenderness, Mass, Normal Bowel Sounds. absent: Distended, Rigid - Extremities Exam Extremities Exam: Full ROM. absent: Calf Tenderness, Pedal Edema - Neurological Exam Neurological Exam: Alert, Awake, Oriented x3 - Psychiatric Exam Psychiatric exam: Normal Affect, Normal Mood - Skin Skin Exam: Warm Assessment and Plan - Assessment and Plan (Free Text) Assessment: 38 y/o F with hx of uterine fibroids, endometriosis, menorrhagia and anemia admitted for abdominal pain, leukocytosis and suspected cholecystitis Distented gallbladder/gallstones -As per CT findings -Could be the cause of patient's leukocytosis and abd pain from baseline -Bands 17 this AM -Repeated lactate 0.9 -HIDA scan pending. As per floor nurse study cant be done today. -Patient was NPO. Will advance to liquids for now -General surgery consulted f/u recs -C/w empiric Rocephin IV but increased to q12h -Start Flagyl 500 mg q8h IV -C/w IVF LR 80mls as per Sx -Pain management Bandemia/leukocytosis -Possible due to IA infection? -Afebrile. -MOnitor VS. -UCx neg prelim -C/w Rocephin and Flagyl IV -F/U BCx Uterine fibroid/menorrhagia/Complex R ovarian cyst - Denies VB at this time - TVUS: Limited ultrasound due to patient's pain. Apparent decrease in size of 5.4 x 5.9 x 5.5 cm intramural posterior wall fibroid in the lower uterine segment, although direct comparison is difficult due to differences in slice selection. 3.5 x 2.1 x 1.5 cm complicated cyst in the right ovary. Blood flow was not documented in the right ovary. - CROWN PRESSER consulted, recs appreciated: NO intervention. C/w OCPs for now and advised to f/u as outpatient - pain management Anemia, normocytic - Due to chronic blood loss due to fibroids - stable - MOnitor VS - Hgb 8.8 this AM, dropped since admission but patient also being hydrated. No signs of active bleeding DVT ppx - scd for now, pending surgery eval <Melisa Jackson - Last Filed: 04/22/19 10:19> Objective - Vital Signs/Intake and Output Vital Signs (last 24 hours): Temp Pulse Resp BP Pulse Ox 0.8 F L 79 20 93/61 L 100 07/11/18 09:00 07/11/18 09:00 07/11/18 09:00 07/11/18 09:00 07/11/18 09:00 - Medications Medications: Current Medications Acetaminophen (Tylenol 120mg Supp) 120 mg [place] Q4 PRN PRN Reason: Pain, Mild (1-3) Doxycycline Hyclate (Doryx) 100 mg PO Q12 [facility]; Protocol Last Admin: 07/10/18 21:15 Dose: 100 mg Enoxaparin Sodium (Lovenox) 40 mg SC DAILY [facility]; Protocol Last Admin: 07/11/18 08:52 Dose: 40 mg Famotidine (Pepcid) 20 mg PO DAILY [facility] Last Admin: 07/11/18 09:00 Dose: 20 mg Home Med (Patient's Own Medication) 1 unit PO DAILY [facility] Last Admin: 07/11/18 08:59 Dose: 1 unit Lactated Ringer's (Lactated Ringer's) 1,000 mls @ 80 mls/hr IV .[id number] [facility] Last Admin: 07/11/18 00:00 Dose: Not Given Piperacillin Sod/Tazobactam (Sod 3.375 gm/ Sodium Chloride) 100 mls @ 100 mls/hr IVPB Q6 [facility]; Protocol Last Admin: 07/11/18 09:00 Dose: 100 mls/hr Ondansetron HCl (Zofran Inj) 4 mg IVP Q4 PRN PRN Reason: Nausea/Vomiting Oxycodone/Acetaminophen (Percocet 5/325 Mg Tab) 1 tab PO Q6 PRN PRN Reason: Pain, moderate (4-7) Stop: 07/11/18 23:07 - Labs Labs: 07/11/18 05:50 07/10/18 06:00 Attending/Attestation - Attestation I have personally seen and examined this patient.: Yes I have fully participated in the care of the patient.: Yes I have reviewed all pertinent clinical information, including history, physical exam and plan: Yes Notes (Text): 07/11/18 10:18 agree with findings and plan as above. continue antibiotics, discharge planning with close follow up with OBGYN for outpatient hysterectomy.
[2018-07-09] MEDS: metroNIDAZOLE 500mg/100ml NS 100 ML IVPB SCH ×2 (11:30→17:10)
[2018-07-09] MEDS: Lactated Ringer's 1,000 ML IV SCH ×2 (11:36→23:30)
--- NOTE | 2018-07-09 11:58 | CT ---
Date of service: 07/08/2018 PROCEDURE: CT Abdomen and Pelvis with contrast HISTORY: abd pain COMPARISON: 03/11/2017 and 03/06/2017 CT scan TECHNIQUE: Contrast dose: 100 milliliters Radiation dose: Total exam DLP = 212.51 mGy-cm. This CT exam was performed using one or more of the following dose reduction techniques: Automated exposure control, adjustment of the mA and/or kV according to patient size, and/or use of iterative reconstruction technique. FINDINGS: LOWER THORAX: Small amount of posterior left lower lobe subsegmental atelectasis and/or scarring is noted. No pneumothorax is seen. No pleural effusion is seen. Visualized esophagus and stomach are unremarkable as well as the duodenum. LIVER: No focal liver mass or intrahepatic ductal dilatation. Minor decreased density of the liver which may suggest some fatty infiltration. GALLBLADDER AND BILE DUCTS: A few tiny layering gallstones are not excluded. No gallbladder wall thickening is seen. Gallbladder is distended. PANCREAS: Unremarkable. No gross lesion or ductal dilatation. SPLEEN: Unremarkable. ADRENALS: Unremarkable. No mass. KIDNEYS AND URETERS: There is mild bilateral pelvocaliceal dilatation bilaterally. This however is more than likely related to the patient's extremely enlarged fibroid uterus seen on prior study. No perinephric changes are renal masses are noted. Small upper pole left renal cyst is incidentally seen. VASCULATURE: Unremarkable. No aortic aneurysm. No aortic atherosclerotic calcification or mural plaque present. BOWEL: Unremarkable. No obstruction. No gross mural thickening. APPENDIX: Normal appendix. PERITONEUM: Unremarkable. No free fluid. No free air. LYMPH NODES: Unremarkable. No enlarged lymph nodes. BLADDER: Bladder is decompressed by an enlarged uterus. REPRODUCTIVE: There is once again evidence of an extremely enlarged fibroid uterus. Numerous fibroids are noted. However since the prior examination there has been moderate interval decrease in density of a posterior uterine body fibroid which may suggest interval central necrosis but should be further correlated clinically. Uterus once again extends into the lower abdomen. Endometrial complex region is limited by the heterogeneity. An element of adenomyosis cannot be excluded. There is additionally a previously identified large right posterior adnexal cystic mass seen on the prior study cystic mass appears to be mildly decreased in size from prior study. Associated fallopian tube enlargement on the right cannot be excluded. Smaller low-density probable follicles or cysts are seen in the left ovary and are probably unchanged. No significant new ascites is seen. BONES: Unchanged. OTHER FINDINGS: None. IMPRESSION: Extremely enlarged multi fibroid uterus is once again identified. Since the prior examination there has been interval development of focal low density within the larger posterior uterine body fibroid. Central cystic change and degeneration could account for the finding but will require further clinical follow-up. MRI may prove helpful for further evaluation. Sarcomatous degeneration cannot be excluded. Mild decrease in large right posterior adnexal cystic mass. Mild bilateral pelvocaliceal dilatation related to the fibroid. Mildly distended gallbladder with a few layering gallstones but no gallbladder wall thickening or pericholecystic fluid. Large low-density area within the uterus was not mentioned on the preliminary report. Therefore this will be placed as a discrepancy and into the PA review folder.
[2018-07-09] MEDS ORDERED: Home Med 1 UNIT PO SCH (15:30)
[2018-07-09] MEDS ORDERED: ETHINYL ESTRADIOL PO SCH (16:11)
[2018-07-09] MEDS ORDERED: NORETHINDRONE PO SCH (16:11)
[2018-07-09] MEDS: NORETHINDRONE PO SCH (17:10)
[2018-07-09] MEDS: ETHINYL ESTRADIOL PO SCH (17:10)
[2018-07-09] MEDS: Piperacillin/Tazobact 3.375 GM in Sodium Chloride 0.9% 100 ML IVPB SCH (21:33)
[2018-07-10] MEDS ORDERED: Famotidine 40 MG/5 ML PO ONE (02:52)
[2018-07-10] MEDS: Piperacillin/Tazobact 3.375 GM in Sodium Chloride 0.9% 100 ML IVPB SCH ×4 (03:24→21:15)
[2018-07-10 07:50] LABS: BASO # 0.1 K/uL (0.0-0.2); BASO % 0.3 % (0.0-2.0); EOS # 0.1 K/uL (0.0-0.7); EOS % 0.5 % (0.0-4.0); HEMOGLOBIN 8.8 g/dL (12.0-16.0); LYMPH # 1.3 K/uL (1.0-4.3); LYMPH % 6.6 % (20.0-40.0); MEAN CELL VOLUME 92.7 fl (81.0-99.0); MEAN CORPUSCULAR HEMOGLOBIN 30.8 pg (27.0-31.0); MEAN CORPUSCULAR HGB CONC 33.3 g/dL (33.0-37.0); MEAN PLATELET VOLUME 8.1 fl (7.2-11.7); MONO # 0.7 K/uL (0.0-0.8); MONO % 3.4 % (0.0-10.0); NEUT # 17.9 K/uL (1.8-7.0); NEUT % 89.2 % (50.0-75.0); RBC 2.84 Mil/uL (3.80-5.20); RED CELL DISTRIBUTION WIDTH 13.5 % (11.5-14.5)
[2018-07-10 07:58] LABS: ALBUMIN 2.9 g/dL (3.5-5.0); ALT/SGPT 26 U/L (9-52); AST/SGOT 19 U/L (14-36); BLOOD UREA NITROGEN 3 mg/dl (7-17); CALCIUM 8.1 mg/dL (8.4-10.2); GFR NON-AFRICAN AMERICAN > 60
[2018-07-10] MEDS: ETHINYL ESTRADIOL PO SCH (08:57)
[2018-07-10] MEDS: NORETHINDRONE PO SCH (08:57)
[2018-07-10] MEDS: Enoxaparin 40 mg Syringe SC SCH (08:58)
[2018-07-10] MEDS: Potassium Chloride 20 mEq ER Tab PO SCH (09:00)
--- NOTE | 2018-07-10 10:17 | CP.PCM.PN ---
<Nelly Chavira - Last Filed: 07/10/18 11:50> Subjective - Date & Time of Evaluation Date of Evaluation: 07/10/18 Time of Evaluation: 07:45 - Subjective Subjective: general Surgery: Dr. Sierra Patient seen and examined this ma at bedside. No acute events overnight per nursing. Pt continues to have RLQ pain. Denies f/c, n/v, CP, SOB. 12 point ROS otherwise negative Objective - Vital Signs/Intake and Output Vital Signs (last 24 hours): Temp Pulse Resp BP Pulse Ox 98 F 84 20 101/64 98 07/10/18 08:15 07/10/18 08:15 07/10/18 08:15 07/10/18 08:15 07/10/18 08:15 - Medications Medications: Current Medications Acetaminophen (Tylenol 120mg Supp) 120 mg [place] Q4 PRN PRN Reason: Pain, Mild (1-3) Doxycycline Hyclate (Doryx) 100 mg PO Q12 [facility]; Protocol Enoxaparin Sodium (Lovenox) 40 mg SC DAILY [facility]; Protocol Last Admin: 07/10/18 08:58 Dose: 40 mg Famotidine (Pepcid) 20 mg PO DAILY [facility] Last Admin: 07/10/18 08:58 Dose: 20 mg Home Med (Patient's Own Medication) 1 unit PO DAILY [facility] Last Admin: 07/10/18 08:57 Dose: 1 unit Lactated Ringer's (Lactated Ringer's) 1,000 mls @ 80 mls/hr IV .[id number] [facility] Last Admin: 07/09/18 23:30 Dose: Not Given Piperacillin Sod/Tazobactam (Sod 3.375 gm/ Sodium Chloride) 100 mls @ 100 mls/hr IVPB Q6 [facility]; Protocol Last Admin: 07/10/18 09:02 Dose: 100 mls/hr Ondansetron HCl (Zofran Inj) 4 mg IVP Q4 PRN PRN Reason: Nausea/Vomiting Oxycodone/Acetaminophen (Percocet 5/325 Mg Tab) 1 tab PO Q6 PRN PRN Reason: Pain, moderate (4-7) Stop: 07/11/18 23:07 - Labs Labs: 07/10/18 07:00 07/10/18 06:00 - Constitutional Appears: Well, Non-toxic, No Acute Distress - Head Exam Head Exam: ATRAUMATIC, NORMOCEPHALIC - Eye Exam Eye Exam: EOMI - ENT Exam ENT Exam: Mucous Membranes Moist - Respiratory Exam Respiratory Exam: NORMAL BREATHING PATTERN - Cardiovascular Exam Cardiovascular Exam: REGULAR RHYTHM - GI/Abdominal Exam GI & Abdominal Exam: Soft, Tenderness (RLQ). 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 Sierra, further recs per him Nelly Chavira, PGY 1 <Peterson Sierra - Last Filed: 07/10/18 17:42> Subjective - Date & Time of Evaluation Time of Evaluation: 16:45 - Subjective Subjective: Patient was seen and examined at the bedside. Agree with resident's note above. Objective - Vital Signs/Intake and Output Vital Signs (last 24 hours): Temp Pulse Resp BP Pulse Ox 98 F 88 20 99/65 L 100 07/10/18 16:56 07/10/18 16:56 07/10/18 16:56 07/10/18 16:56 07/10/18 16:56 - Medications Medications: Current Medications Acetaminophen (Tylenol 120mg Supp) 120 mg [place] Q4 PRN PRN Reason: Pain, Mild (1-3) Doxycycline Hyclate (Doryx) 100 mg PO Q12 [facility]; Protocol Last Admin: 07/10/18 11:05 Dose: 100 mg Enoxaparin Sodium (Lovenox) 40 mg SC DAILY [facility]; Protocol Last Admin: 07/10/18 08:58 Dose: 40 mg Famotidine (Pepcid) 20 mg PO DAILY [facility] Last Admin: 07/10/18 08:58 Dose: 20 mg Home Med (Patient's Own Medication) 1 unit PO DAILY [facility] Last Admin: 07/10/18 08:57 Dose: 1 unit Lactated Ringer's (Lactated Ringer's) 1,000 mls @ 80 mls/hr IV .[id number] [facility] Last Admin: 07/09/18 23:30 Dose: Not Given Piperacillin Sod/Tazobactam (Sod 3.375 gm/ Sodium Chloride) 100 mls @ 100 mls/hr IVPB Q6 [facility]; Protocol Last Admin: 07/10/18 16:39 Dose: 100 mls/hr Ondansetron HCl (Zofran Inj) 4 mg IVP Q4 PRN PRN Reason: Nausea/Vomiting Oxycodone/Acetaminophen (Percocet 5/325 Mg Tab) 1 tab PO Q6 PRN PRN Reason: Pain, moderate (4-7) Stop: 07/11/18 23:07 - Labs Labs: 07/10/18 07:00 07/10/18 06:00 - GI/Abdominal Exam Additional comments: soft, NT, ND, BS+, no rebound, no guarding Assessment and Plan - Assessment and Plan (Free Text) Plan: - Start regular diet - NPO after midnight for HIDA scan in am - repeat labs in am - Will follow
[2018-07-10] MEDS ORDERED: Potassium Chloride 20 mEq 100 ML IVPB SCH (12:00)
--- NOTE | 2018-07-10 13:07 | CP.PCM.PN ---
<PaulgreerKatherine - Last Filed: 07/10/18 16:55> Subjective - Date & Time of Evaluation Date of Evaluation: 07/10/18 Time of Evaluation: 08:00 - Subjective Subjective: Patient seen at bedside doing well. Reports her lower abdominal pain has resolved. Reports she has her menstrual period for the last 3 days. Vomitted 1x this AM. Denies F/C, SOB, CP, D/C. Patient had been tolerating liquid diet. Objective - Vital Signs/Intake and Output Vital Signs (last 24 hours): Temp Pulse Resp BP Pulse Ox 98 F 84 20 101/64 98 07/10/18 08:15 07/10/18 08:15 07/10/18 08:15 07/10/18 08:15 07/10/18 08:15 - Medications Medications: Current Medications Acetaminophen (Tylenol 120mg Supp) 120 mg [place] Q4 PRN PRN Reason: Pain, Mild (1-3) Doxycycline Hyclate (Doryx) 100 mg PO Q12 [facility]; Protocol Last Admin: 07/10/18 11:05 Dose: 100 mg Enoxaparin Sodium (Lovenox) 40 mg SC DAILY [facility]; Protocol Last Admin: 07/10/18 08:58 Dose: 40 mg Famotidine (Pepcid) 20 mg PO DAILY [facility] Last Admin: 07/10/18 08:58 Dose: 20 mg Home Med (Patient's Own Medication) 1 unit PO DAILY [facility] Last Admin: 07/10/18 08:57 Dose: 1 unit Lactated Ringer's (Lactated Ringer's) 1,000 mls @ 80 mls/hr IV .[id number] [facility] Last Admin: 07/09/18 23:30 Dose: Not Given Piperacillin Sod/Tazobactam (Sod 3.375 gm/ Sodium Chloride) 100 mls @ 100 mls/hr IVPB Q6 [facility]; Protocol Last Admin: 07/10/18 09:02 Dose: 100 mls/hr Potassium Chloride (Potassium Chloride 20 Meq/100 Ml) 100 mls @ 50 mls/hr IVPB Q2 [facility] Stop: 07/10/18 15:59 Ondansetron HCl (Zofran Inj) 4 mg IVP Q4 PRN PRN Reason: Nausea/Vomiting Oxycodone/Acetaminophen (Percocet 5/325 Mg Tab) 1 tab PO Q6 PRN PRN Reason: Pain, moderate (4-7) Stop: 07/11/18 23:07 - Labs Labs: 07/10/18 07:00 07/10/18 06:00 - Constitutional Appears: Non-toxic, No Acute Distress - Eye Exam Eye Exam: EOMI - ENT Exam ENT Exam: Mucous Membranes Moist - Respiratory Exam Respiratory Exam: Clear to Ausculation Bilateral. absent: Rales, Rhonchi, Wheezes - Cardiovascular Exam Cardiovascular Exam: RRR, +S1, +S2 - GI/Abdominal Exam GI & Abdominal Exam: Soft, Tenderness (epigastric), Mass, Normal Bowel Sounds. absent: Distended, Guarding, Rigid, Rebound - Back Exam Back Exam: NORMAL INSPECTION - Neurological Exam Neurological Exam: Alert, Awake, Oriented x3 Assessment and Plan - Assessment and Plan (Free Text) Assessment: 38 y/o F with hx of uterine fibroids, endometriosis, menorrhagia and anemia admitted for abdominal pain, leukocytosis and suspected cholecystitis Distended gallbladder/gallstones -As per CT findings -Could be the cause of patient's leukocytosis and abd pain from baseline -Bands 17 this AM -Repeated lactate 0.9 -HIDA scan pending - Liquid diet -General surgery consulted f/u recs -c/w Zosyn Q6 (day 2) -Start Doxycycline 100mg PO Q12 (day 1) -s/p Rocephin and Flagyl -C/w IVF LR 80mls as per Sx -Pain management -F/u CBC, LFT's in AM Bandemia/leukocytosis -Possible due to IA infection? -Afebrile. -Monitor VS. -UCx neg prelim -c/w Zosyn Q6 (day 2) -Start Doxycycline 100mg PO Q12 (day 1) -s/p Rocephin and Flagyl -Blood cx no growth @ 48hrs -Infectious disease consulted- Dr. Stone f/u reccs -F/u CBC, and GC/CHL in AM Uterine fibroid/menorrhagia/Complex R ovarian cyst - Has menses past 3 days - TVUS: Limited ultrasound due to patient's pain. Apparent decrease in size of 5.4 x 5.9 x 5.5 cm intramural posterior wall fibroid in the lower uterine segment, although direct comparison is difficult due to differences in slice selection. 3.5 x 2.1 x 1.5 cm complicated cyst in the right ovary. Blood flow was not documented in the right ovary. - SILVER CHASER consulted, recs appreciated: No intervention at this time, c/w obtaining the MRI, c/w OCPs for now and advised to f/u as outpatient with CMV DRIVER surgery at [facility] - pain management - F/u MRI pelvis in AM Anemia, normocytic - Due to chronic blood loss due to fibroids - stable - Monitor VS - Hgb 8.8 this AM, dropped since admission but patient also being hydrated. No signs of active bleeding Diet Liquid DVT ppx -Lovenox 40mg <Ileana Lee - Last Filed: 07/10/18 17:31> Objective - Vital Signs/Intake and Output Vital Signs (last 24 hours): Temp Pulse Resp BP Pulse Ox 98 F 88 20 99/65 L 100 07/10/18 16:56 07/10/18 16:56 07/10/18 16:56 07/10/18 16:56 07/10/18 16:56 - Medications Medications: Current Medications Acetaminophen (Tylenol 120mg Supp) 120 mg [place] Q4 PRN PRN Reason: Pain, Mild (1-3) Doxycycline Hyclate (Doryx) 100 mg PO Q12 [facility]; Protocol Last Admin: 07/10/18 11:05 Dose: 100 mg Enoxaparin Sodium (Lovenox) 40 mg SC DAILY [facility]; Protocol Last Admin: 07/10/18 08:58 Dose: 40 mg Famotidine (Pepcid) 20 mg PO DAILY [facility] Last Admin: 07/10/18 08:58 Dose: 20 mg Home Med (Patient's Own Medication) 1 unit PO DAILY [facility] Last Admin: 07/10/18 08:57 Dose: 1 unit Lactated Ringer's (Lactated Ringer's) 1,000 mls @ 80 mls/hr IV .[id number] [facility] Last Admin: 07/09/18 23:30 Dose: Not Given Piperacillin Sod/Tazobactam (Sod 3.375 gm/ Sodium Chloride) 100 mls @ 100 mls/hr IVPB Q6 [facility]; Protocol Last Admin: 07/10/18 16:39 Dose: 100 mls/hr Ondansetron HCl (Zofran Inj) 4 mg IVP Q4 PRN PRN Reason: Nausea/Vomiting Oxycodone/Acetaminophen (Percocet 5/325 Mg Tab) 1 tab PO Q6 PRN PRN Reason: Pain, moderate (4-7) Stop: 07/11/18 23:07 - Labs Labs: 07/10/18 07:00 07/10/18 06:00 Attending/Attestation - Attestation I have personally seen and examined this patient.: Yes I have fully participated in the care of the patient.: Yes I have reviewed all pertinent clinical information, including history, physical exam and plan: Yes Notes (Text): CT of abd/Pelvis: Extremely enlarged multi fibroid uterus is once again identified. Since the prior examination there has been interval development of focal low density within the larger posterior uterine body fibroid. Central cystic change and degeneration could account for the finding but will require further clinical follow-up. MRI may prove helpful for further evaluation. Sarcomatous degeneration cannot be excluded. Mild decrease in large right posterior adnexal cystic mass. Mild bilateral pelvocaliceal dilatation related to the fibroid. Mildly distended gallbladder with a few layering gallstones but no gallbladder wall thickening or pericholecystic fluid. Sepsis ( POA) unclear if infection vs Infected cystic degeneration of fibroids r/o Sarcomatous Degenration of Fibroid Right Complex Adnexal Cyst Distended Gallbladder r/o Acute Cholecystitis - MRI to further eval fibroid and adnexa - CMV DRIVER consult - cont IV Zosyn, add Doxycycline - Surgery consulted- rec HIDA scan -Leukocytosis from 24K down to 20K, Preg test : negative - GC/Chlam PCR
[2018-07-10] MEDS: Lactated Ringer's 1,000 ML IV SCH (21:16)
[2018-07-11] MEDS: Lactated Ringer's 1,000 ML IV SCH
[2018-07-11] MEDS: Piperacillin/Tazobact 3.375 GM in Sodium Chloride 0.9% 100 ML IVPB SCH ×2 (03:01→09:00)
[2018-07-11 06:20] LABS: HEMOGLOBIN 9.7 g/dL (12.0-16.0); MEAN CELL VOLUME 91.5 fl (81.0-99.0); MEAN CORPUSCULAR HEMOGLOBIN 31.4 pg (27.0-31.0); MEAN CORPUSCULAR HGB CONC 34.3 g/dL (33.0-37.0); RBC 3.1 Mil/uL (3.80-5.20); WHITE BLOOD COUNT 9.5 K/uL (4.8-10.8)
--- NOTE | 2018-07-11 07:44 | CP.PCM.PN ---
<Abdifatah Gonzales - Last Filed: 07/11/18 07:56> Subjective - Date & Time of Evaluation Date of Evaluation: 07/11/18 Time of Evaluation: 05:45 - Subjective Subjective: General Surgery Note for Dr. Sierra Patient seen and examined this ma at bedside. No acute events overnight per nursing. Patient continues to have suprapubic pain. Patient is NPO and to get HIDA today. Denies f/c, n/v/d, CP, SOB. Objective - Vital Signs/Intake and Output Vital Signs (last 24 hours): Temp Pulse Resp BP Pulse Ox 97.8 F 79 18 94/59 L 100 07/10/18 23:42 07/10/18 23:42 07/10/18 23:42 07/10/18 23:42 07/10/18 23:42 - Medications Medications: Current Medications Acetaminophen (Tylenol 120mg Supp) [address] Q4 PRN PRN Reason: Pain, Mild (1-3) Doxycycline Hyclate (Doryx) 100 mg PO Q12 [facility]; Protocol Last Admin: 07/10/18 21:15 Dose: 100 mg Enoxaparin Sodium (Lovenox) 40 mg SC DAILY [facility]; Protocol Last Admin: 07/10/18 08:58 Dose: 40 mg Famotidine (Pepcid) 20 mg PO DAILY [facility] Last Admin: 07/10/18 08:58 Dose: 20 mg Home Med (Patient's Own Medication) 1 unit PO DAILY [facility] Last Admin: 07/10/18 08:57 Dose: 1 unit Lactated Ringer's (Lactated Ringer's) 1,000 mls @ 80 mls/hr IV .[id number] [facility] Last Admin: 07/11/18 00:00 Dose: Not Given Piperacillin Sod/Tazobactam (Sod 3.375 gm/ Sodium Chloride) 100 mls @ 100 mls/hr IVPB Q6 [facility]; Protocol Last Admin: 07/11/18 03:01 Dose: 100 mls/hr Ondansetron HCl (Zofran Inj) 4 mg IVP Q4 PRN PRN Reason: Nausea/Vomiting Oxycodone/Acetaminophen (Percocet 5/325 Mg Tab) 1 tab PO Q6 PRN PRN Reason: Pain, moderate (4-7) Stop: 07/11/18 23:07 - Labs Labs: 07/11/18 05:50 07/10/18 06:00 - Additional Findings Additional findings: - Constitutional Appears: Well, Non-toxic, No Acute Distress - Head Exam Head Exam: ATRAUMATIC, NORMOCEPHALIC - Eye Exam Eye Exam: EOMI - ENT Exam ENT Exam: Mucous Membranes Moist - Respiratory Exam Respiratory Exam: NORMAL BREATHING PATTERN - Cardiovascular Exam Cardiovascular Exam: REGULAR RHYTHM - GI/Abdominal Exam GI & Abdominal Exam: Soft, Normal Bowel sounds, Tenderness (suprapubic). absent: Distended, Guarding, Rebound. 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 Mariela Gonzales PGY2 <Mika Funez - Last Filed: 07/11/18 09:02> Objective - Vital Signs/Intake and Output Vital Signs (last 24 hours): Temp Pulse Resp BP Pulse Ox 97.8 F 79 18 94/59 L 100 07/10/18 23:42 07/10/18 23:42 07/10/18 23:42 07/10/18 23:42 07/10/18 23:42 - Medications Medications: Current Medications Acetaminophen (Tylenol 120mg Supp) [address] Q4 PRN PRN Reason: Pain, Mild (1-3) Doxycycline Hyclate (Doryx) 100 mg PO Q12 [facility]; Protocol Last Admin: 07/10/18 21:15 Dose: 100 mg Enoxaparin Sodium (Lovenox) 40 mg SC DAILY [facility]; Protocol Last Admin: 07/10/18 08:58 Dose: 40 mg Famotidine (Pepcid) 20 mg PO DAILY [facility] Last Admin: 07/10/18 08:58 Dose: 20 mg Home Med (Patient's Own Medication) 1 unit PO DAILY [facility] Last Admin: 07/10/18 08:57 Dose: 1 unit Lactated Ringer's (Lactated Ringer's) 1,000 mls @ 80 mls/hr IV .[id number] [facility] Last Admin: 07/11/18 00:00 Dose: Not Given Piperacillin Sod/Tazobactam (Sod 3.375 gm/ Sodium Chloride) 100 mls @ 100 mls/hr IVPB Q6 [facility]; Protocol Last Admin: 07/11/18 03:01 Dose: 100 mls/hr Ondansetron HCl (Zofran Inj) 4 mg IVP Q4 PRN PRN Reason: Nausea/Vomiting Oxycodone/Acetaminophen (Percocet 5/325 Mg Tab) 1 tab PO Q6 PRN PRN Reason: Pain, moderate (4-7) Stop: 07/11/18 23:07 - Labs Labs: 07/11/18 05:50 07/10/18 06:00 Assessment and Plan - Assessment and Plan (Free Text) Plan: seen at bedside, no overnight events. Pt currently states she no longer has pain. Pt NPO for HIDA scan today. gen: awake, alert, NAD heent: nc/at, eomi, Peerla abd: soft, ND, -murphys, minimal discomfort to suprapubic area a/p IVF f/u HIDA - r/o acute cholecystitis -will continue to follow
--- NOTE | 2018-07-11 08:20 | CP.PCM.PN ---
Subjective - Date & Time of Evaluation Date of Evaluation: 07/11/18 Time of Evaluation: 08:00 - Subjective Subjective: Patient seen at bedside doing well. Reports mild abdominal pain. Pt NPO for MRI an HIDA scan. Denies F/C, SOB, CP, D/C. Objective - Vital Signs/Intake and Output Vital Signs (last 24 hours): Temp Pulse Resp BP Pulse Ox 97.8 F 79 18 94/59 L 100 07/10/18 23:42 07/10/18 23:42 07/10/18 23:42 07/10/18 23:42 07/10/18 23:42 - Medications Medications: Current Medications Acetaminophen (Tylenol 120mg Supp) 120 mg [place] Q4 PRN PRN Reason: Pain, Mild (1-3) Doxycycline Hyclate (Doryx) 100 mg PO Q12 [facility]; Protocol Last Admin: 07/10/18 21:15 Dose: 100 mg Enoxaparin Sodium (Lovenox) 40 mg SC DAILY [facility]; Protocol Last Admin: 07/10/18 08:58 Dose: 40 mg Famotidine (Pepcid) 20 mg PO DAILY [facility] Last Admin: 07/10/18 08:58 Dose: 20 mg Home Med (Patient's Own Medication) 1 unit PO DAILY [facility] Last Admin: 07/10/18 08:57 Dose: 1 unit Lactated Ringer's (Lactated Ringer's) 1,000 mls @ 80 mls/hr IV .[id number] [facility] Last Admin: 07/11/18 00:00 Dose: Not Given Piperacillin Sod/Tazobactam (Sod 3.375 gm/ Sodium Chloride) 100 mls @ 100 mls/hr IVPB Q6 [facility]; Protocol Last Admin: 07/11/18 03:01 Dose: 100 mls/hr Ondansetron HCl (Zofran Inj) 4 mg IVP Q4 PRN PRN Reason: Nausea/Vomiting Oxycodone/Acetaminophen (Percocet 5/325 Mg Tab) 1 tab PO Q6 PRN PRN Reason: Pain, moderate (4-7) Stop: 07/11/18 23:07 - Labs Labs: 07/11/18 05:50 07/10/18 06:00 - Constitutional Appears: Non-toxic, No Acute Distress - Head Exam Head Exam: ATRAUMATIC, NORMAL INSPECTION - Eye Exam Eye Exam: EOMI - ENT Exam ENT Exam: Mucous Membranes Moist - Respiratory Exam Respiratory Exam: Clear to Ausculation Bilateral. absent: Rales, Rhonchi, Wheezes - Cardiovascular Exam Cardiovascular Exam: RRR, +S1, +S2 - GI/Abdominal Exam GI & Abdominal Exam: Soft, Tenderness (mild), Normal Bowel Sounds - Extremities Exam Extremities Exam: Normal Inspection. absent: Pedal Edema - Neurological Exam Neurological Exam: Alert, Awake, Oriented x3 Assessment and Plan - Assessment and Plan (Free Text) Assessment: 38 y/o F with hx of uterine fibroids, endometriosis, menorrhagia and anemia admitted for abdominal pain, leukocytosis and suspected cholecystitis CT of abd/Pelvis: Extremely enlarged multi fibroid uterus is once again identified. Since the prior examination there has been interval development of focal low density within the larger posterior uterine body fibroid. Central cystic change and degeneration could account for the finding but will require further clinical follow-up. MRI may prove helpful for further evaluation. Sarcomatous degeneration cannot be excluded. Mild decrease in large right posterior adnexal cystic mass. Mild bilateral pelvocaliceal dilatation related to the fibroid. Mildly distended gallbladder with a few layering gallstones but no gallbladder w all thickening or pericholecystic fluid. Distended Gallbladder r/o Acute Cholecystitis -Could be the cause of patient's leukocytosis and abd pain from baseline -Bands 17 on 07/09/18, leukocytosis resolved -Repeated lactate 0.9 -HIDA scan pending -NPO diet -General surgery consulted f/u recs -c/w Zosyn Q6 (day 3) -Start Doxycycline 100mg PO Q12 (day 2) -s/p Rocephin and Flagyl -C/w IVF LR 80mls as per Sx -Pain management -F/u CBC, BMP, HIDA in AM Bandemia/leukocytosis, resolved -Possible due to IA infection? -Afebrile. -Monitor VS -UCx neg -c/w Zosyn Q6 (day 3) -Start Doxycycline 100mg PO Q12 (day 2) -s/p Rocephin and Flagyl -Blood cx no growth @ 3 days -Infectious disease consulted- Dr. Stone f/u reccs -F/u CBC, BMP and GC/CHL in AM Sepsis ( POA) unclear if infection vs Infected cystic degeneration of fibroids r/o Sarcomatous Degenration of Fibroid Right Complex Adnexal Cyst - TVUS: Limited ultrasound due to patient's pain. Apparent decrease in size of 5.4 x 5.9 x 5.5 cm intramural posterior wall fibroid in the lower uterine segment, although direct comparison is difficult due to differences in slice selection. 3.5 x 2.1 x 1.5 cm complicated cyst in the right ovary. Blood flow was not documented in the right ovary. - CATALYST PLANT SUPERVISOR consulted, recs appreciated: No intervention at this time, c/w obta ining the MRI, c/w OCPs for now and advised to f/u as outpatient with SAWMILLING OPERATOR surgery at [facility] - pain management - F/u MRI pelvis, GC/CHL Anemia, normocytic - Due to chronic blood loss due to fibroids - stable - Monitor VS - Hgb 9.7 this AM, dropped since admission but patient also being hydrated. No signs of active bleeding Diet NPO diet for (MRI and HIDA) DVT ppx -Lovenox 40mg
[2018-07-11 08:32] LABS: ALB/GLOB RATIO 1.1 (1.0-2.1); ALBUMIN 2.9 g/dL (3.5-5.0); BILIRUBIN,DIRECT 0.3 mg/ml (0.0-0.4)
[2018-07-11] MEDS: Enoxaparin 40 mg Syringe SC SCH (08:52)
[2018-07-11] MEDS: NORETHINDRONE PO SCH (08:59)
[2018-07-11] MEDS: ETHINYL ESTRADIOL PO SCH (08:59)
[2018-07-11] MEDS ORDERED: Gadodiamide 287 MG/ML VIAL (15ML) IV ONE (09:19)
--- NOTE | 2018-07-11 11:57 | CP.PCM.CON ---
History of Present Illness - History of Present Illness History of Present Illness: 38yo F w/ hx of endometriosis presents to hospital with 1 day of lower abdominal pain. Pt states the pain began yesterday. She reports she just started menstruation and this is typical pain that she has during her cycle, except this time it was more severe and prompted her to come to the ED. She describes it as lower abdominal and pelvic B/L and also with some radiation to the back, a 5/10 currently, cramping pain. She usually takes naproxen which helps but this time did not help the pain. She denies any associated symptoms including Nausea/Vomiting, Fevers/chills, Diarrhea/Constipation, Dysuria/Hematuria, SOB or chest pain. PMH: Endometriosis PSH: L oopherectomy Home meds: OCPs NKDA Pt was seen in the ED. Labs significant for leukocytosis. A Transvaginal u/s was done which showed a complex R ovarian cyst and no blood flow. CT abdomen/pelvis showed an enlarged fibroid uterus and R ovarian cystic mass, as well as a distended gallbladder with gallstones. Surgery was consulted. Past Patient History - Infectious Disease Hx of Infectious Diseases: None - Past Medical History & Family History Past Medical History?: Yes - Past Social History Smoking Status: Never Smoked Drugs: Denies Home Situation {Lives}: With Family - CARDIAC Hx Cardiac Disorders: No - PULMONARY Hx Respiratory Disorders: No - NEUROLOGICAL Hx Neurological Disorder: No - HEENT Hx HEENT Problems: No - RENAL Hx Chronic Kidney Disease: No - ENDOCRINE/METABOLIC Hx Endocrine Disorders: No - HEMATOLOGICAL/ONCOLOGICAL Hx Anemia: Yes Hx Human Immunodeficiency Virus (HIV): No - INTEGUMENTARY Hx Dermatological Problems: No - MUSCULOSKELETAL/RHEUMATOLOGICAL Hx Musculoskeletal Disorders: No Hx Falls: No - GASTROINTESTINAL Hx Gastrointestinal Disorders: Yes Hx Constipation: Yes - GENITOURINARY/GYNECOLOGICAL Hx Genitourinary Disorders: Yes (Diagnosis of endometriosis, uterine fibroid) Hx Urinary Tract Infection: Yes Other/Comment: endometriosis, ovarian cyst - PSYCHIATRIC Hx Anxiety: No Hx Bipolar Disorder: No Hx Depression: No Hx Paranoia: No Hx Post Traumatic Stress Disorder: No Hx Schizophrenia: No - SURGICAL HISTORY Hx Surgeries: Yes Other/Comment: left ovary removal. endometrial biopsy - ANESTHESIA Hx Anesthesia: Yes Hx Anesthesia Reactions: No Hx Malignant Hyperthermia: No Meds Allergies/Adverse Reactions: Allergies Allergy/AdvReac Type Severity Reaction Status Date / Time No Known Allergies Allergy Verified 05/28/17 11:36 - Medications Medications: Current Medications Acetaminophen (Tylenol 120mg Supp) 120 mg DC Q4 PRN PRN Reason: Pain, Mild (1-3) Doxycycline Hyclate (Doryx) 100 mg PO Q12 [facility]; Protocol Last Admin: 07/10/18 21:15 Dose: 100 mg Enoxaparin Sodium (Lovenox) 40 mg SC DAILY [facility]; Protocol Last Admin: 07/11/18 08:52 Dose: 40 mg Famotidine (Pepcid) 20 mg PO DAILY [facility] Last Admin: 07/11/18 09:00 Dose: 20 mg Home Med (Patient's Own Medication) 1 unit PO DAILY [facility] Last Admin: 07/11/18 08:59 Dose: 1 unit Lactated Ringer's (Lactated Ringer's) 1,000 mls @ 80 mls/hr IV .[id number] [facility] Last Admin: 07/11/18 00:00 Dose: Not Given Piperacillin Sod/Tazobactam (Sod 3.375 gm/ Sodium Chloride) 100 mls @ 100 mls/hr IVPB Q6 [facility]; Protocol Last Admin: 07/11/18 09:00 Dose: 100 mls/hr Ondansetron HCl (Zofran Inj) 4 mg IVP Q4 PRN PRN Reason: Nausea/Vomiting Oxycodone/Acetaminophen (Percocet 5/325 Mg Tab) 1 tab PO Q6 PRN PRN Reason: Pain, moderate (4-7) Stop: 07/11/18 23:07 Results - Vital Signs Recent Vital Signs: Last Vital Signs Temp 0.8 F L 07/11/18 09:00 Pulse 79 07/11/18 09:00 Resp 20 07/11/18 09:00 BP 93/61 L 07/11/18 09:00 Pulse Ox 100 07/11/18 09:00 - Labs Result Diagrams: 07/11/18 05:50 07/10/18 06:00 Labs: Laboratory Results - last 24 hr 07/08/18 07/11/18 21:14 05:50 WBC 9.5 D RBC 3.10 L Hgb 9.7 L Hct 28.4 L MCV 91.5 MCH 31.4 H MCHC 34.3 RDW 13.0 Plt Count 297 Total Bilirubin 0.4 Direct Bilirubin 0.3 AST 22 ALT 32 Alkaline Phosphatase 57 Total Protein 5.6 L Albumin 2.9 L D Globulin 2.7 Albumin/Globulin Ratio 1.1
--- NOTE | 2018-07-11 13:38 | MRI ---
Date of service: 07/11/2018 PROCEDURE: MRI pelvis with and without gadolinium HISTORY: further asess fibroids COMPARISON: Pelvic ultrasound examination 07/08/[address] abdomen/pelvis 07/08/2018 TECHNIQUE: Multi sequence, multiplanar imaging of the pelvis was performed both with and without intravenous gadolinium administration. FINDINGS: The uterus is markedly enlarged. There is loss of the normal myometrial/junctional zone interface. There are small high T2 signal spaces throughout the myometrium. Findings consistent with diffuse adenomyosis. In addition, there is a more focal mass-like component of this adenomyosis in the posterior wall of the uterus displacing the endometrial stripe anteriorly. There is central low signal seen within this structure most clearly evident on post gadolinium T1 weighted images. There is no significant corresponding high signal seen on T2 weighted images. Nevertheless, this most likely represents some central necrosis within this area of distinct focal adenomyosis. There is no evidence of uterine fibroid. The uterus measures approximately 13.1 cm in greatest dimension. The endometrium is normal in width. There is no endometrial fluid appreciated. The cervix is unremarkable in appearance. The patient is status post left oophorectomy by history. The right ovary is unremarkable, with few small follicles. This is best demonstrated on series 5, image 15 and 16. In the posterior right adnexal region there is an ovoid mass measuring approximately 4.1 x 5.3 cm. It shows high T1 and low T2 signal and demonstrates some T2 shading on axial and sagittal images. Findings are consistent with an endometrioma. This is essentially unchanged in size when compared to the prior examination of 02/08/2017. In addition, there is a hydrosalpinx, likely right hydrosalpinx, in the posterior midline pelvis. Following intravenous gadolinium administration, no abnormal enhancement is demonstrated. There is no pelvic lymphadenopathy. The vagina is unremarkable. The urinary bladder is nondistended. There is minimal ascites. The marrow signal of the visualized osseous structures is unremarkable. IMPRESSION: Findings consistent with diffuse adenomyosis of the uterus with a focal component in the posterior midline uterus simulating a leiomyoma. No evidence of windy uterine fibroid. Left oophorectomy. Right hydrosalpinx. Probable right adnexal endometrioma. Trace ascites.
--- NOTE | 2018-07-11 15:07 | NM ---
Date of service: 07/11/2018 PROCEDURE: Nuclear Medicine Hepatobiliary Scan HISTORY: r/o cholecystitis COMPARISON: Not available TECHNIQUE: 5.300 mCi of technetium 99m Mebrofenin was administered intravenously. Planar images of the abdomen were obtained at 5 min intervals to 60 mins. Delayed images were also obtained. FINDINGS: LIVER: Timely and homogenous uptake. COMMON BILE DUCT: identified at 10 mins. GALLBLADDER: identified at 15 mins. SMALL BOWEL: Identified at 15 mins. IMPRESSION: Normal Hepatobiliary Scan. The cystic duct is patent.
--- NOTE | 2018-07-11 15:49 | CP.PCM.DIS ---
<Katherine Johnson - Last Filed: 07/11/18 16:34> Provider - Provider Date of Admission: 07/08/18 21:14 Attending physician: Lazaro Champagne MD Primary care physician: [facility] Consults: 07/08/18 21:16 Surgery [General Surgery Consult] Stat Comment: Consulting Provider: Peterson Sierra Consulting Physician: Peterson Sierra Reason for Consult: abdominal infection 07/08/18 21:17 Gynocology [BREEDING MANAGER Consult] Stat Comment: Consulting Provider: Arnol Rojas Consulting Physician: Arnol Rojas Reason for Consult: possible ovarian torsion 07/08/18 21:18 Surgery [General Surgery Consult] Stat Comment: Consulting Provider: Peterson Sierra Consulting Physician: Peterson Sierra Reason for Consult: evaluate for cholecystitis 07/10/18 08:51 Infectious Disease Consult Routine Comment: Consulting Provider: Arcadio Stone Consulting Physician: Arcadio Stone Reason for Consult: Bandemia. Possible intrabdominal infection Time Spent in preparation of Discharge (in minutes): 10 Diagnosis - Discharge Diagnosis (1) Abdominal pain Status: Acute Comment: Resolved. F/u with bean picker machine operator at [facility] (2) Abnormal uterine bleeding (AUB) Status: Acute Comment: c/w OCPS (3) Pelvic mass Status: Acute Comment: F/u with bean picker machine operator at [facility] Hospital Course - Lab Results Lab Results: Micro Results 07/08/18 13:30 Blood-Venous Blood Culture - Preliminary NO GROWTH AFTER 3 DAYS 07/08/18 13:30 Blood-Venous Blood Culture - Preliminary NO GROWTH AFTER 3 DAYS 07/08/18 12:44 Urine,Clean Catch Urine Culture - Final No Growth (<1,000 CFU/ML) Most Recent Lab Values WBC 9.5 K/uL (4.8-10.8) D 07/11/18 05:50 RBC 3.10 Mil/uL (3.80-5.20) L 07/11/18 05:50 Hgb 9.7 g/dL (12.0-16.0) L 07/11/18 05:50 Hct 28.4 % (34.0-47.0) L 07/11/18 05:50 MCV 91.5 fl (81.0-99.0) 07/11/18 05:50 MCH 31.4 pg (27.0-31.0) H 07/11/18 05:50 MCHC 34.3 g/dL (33.0-37.0) 07/11/18 05:50 RDW 13.0 % (11.5-14.5) 07/11/18 05:50 Plt Count 297 K/uL (130-400) 07/11/18 05:50 MPV 8.1 fl (7.2-11.7) 07/10/18 07:00 Neut % (Auto) 89.2 % (50.0-75.0) H 07/10/18 07:00 Lymph % (Auto) 6.6 % (20.0-40.0) L 07/10/18 07:00 Hood % (Auto) 3.4 % (0.0-10.0) 07/10/18 07:00 Eos % (Auto) 0.5 % (0.0-4.0) 07/10/18 07:00 Baso % (Auto) 0.3 % (0.0-2.0) 07/10/18 07:00 Neut # (Auto) 17.9 K/uL (1.8-7.0) H 07/10/18 07:00 Lymph # (Auto) 1.3 K/uL (1.0-4.3) 07/10/18 07:00 Hood # (Auto) 0.7 K/uL (0.0-0.8) 07/10/18 07:00 Eos # (Auto) 0.1 K/uL (0.0-0.7) 07/10/18 07:00 Baso # (Auto) 0.1 K/uL (0.0-0.2) 07/10/18 07:00 Neutrophils % (Manual) 79 % (42-75) H 07/09/18 05:30 Band Neutrophils % 17 % (0-2) H* 07/09/18 05:30 Lymphocytes % (Manual) 2 % (20-50) L 07/09/18 05:30 Monocytes % (Manual) 2 % (0-10) 07/09/18 05:30 Eosinophils % (Manual) 1 % (0-7) 07/08/18 17:19 Platelet Estimate Normal (NORMAL) 07/09/18 05:30 Large Platelets Present 07/09/18 05:30 Giant Platelets Present 07/09/18 05:30 RBC Morphology Normal (NORMAL) 07/08/18 12:00 Hypochromasia (manual) Slight 07/09/18 05:30 Anisocytosis (manual) Slight 07/09/18 05:30 pO2 36 mm/Hg (30-55) 07/09/18 10:06 VBG pH 7.35 (7.32-7.43) 07/09/18 10:06 VBG pCO2 37 mmHg (40-60) L 07/09/18 10:06 VBG HCO3 20.4 mmol/L 07/09/18 10:06 VBG Total CO2 21.5 mmol/L (22-28) L 07/09/18 10:06 VBG O2 Sat (Calc) 73.5 % (40-65) H 07/09/18 10:06 VBG Base Excess -4.7 mmol/L (0.0-2.0) L 07/09/18 10:06 VBG Potassium 3.8 mmol/L (3.6-5.2) 07/09/18 10:06 Sodium 136.0 mmol/L (132-148) 07/09/18 10:06 Chloride 106.0 mmol/L (98-107) 07/09/18 10:06 Glucose 64 mg/dL (65-105) L 07/09/18 10:06 Lactate 0.9 mmol/L (0.7-2.1) 07/09/18 10:06 FiO2 21.0 % 07/09/18 10:06 Sodium 135 mmol/l (132-148) 07/10/18 06:00 Potassium 3.5 MMOL/L (3.6-5.0) L 07/10/18 06:00 Chloride 106 mmol/L (98-107) 07/10/18 06:00 Carbon Dioxide 19 mmol/L (22-30) L 07/10/18 06:00 Anion Gap 14 (10-20) 07/10/18 06:00 BUN 3 mg/dl (7-17) L 07/10/18 06:00 Creatinine 0.5 mg/dl (0.7-1.2) L 07/10/18 06:00 Est GFR ( Amer) > 60 07/10/18 06:00 Est GFR (Non-Af Amer) > 60 07/10/18 06:00 POC Glucose (mg/dL) 110 mg/dL (65-110) 07/08/18 17:01 Random Glucose 84 mg/dL (65-105) 07/10/18 06:00 Calcium 8.1 mg/dL (8.4-10.2) L 07/10/18 06:00 Total Bilirubin 0.5 mg/dl (0.2-1.3) 07/10/18 06:00 Direct Bilirubin 0.3 mg/ml (0.0-0.4) 07/08/18 21:14 AST 19 U/L (14-36) 07/10/18 06:00 ALT 26 U/L (9-52) 07/10/18 06:00 Alkaline Phosphatase 80 U/L (38-126) 07/10/18 06:00 Total Protein 5.8 G/DL (6.3-8.2) L 07/10/18 06:00 Albumin 2.9 g/dL (3.5-5.0) L 07/10/18 06:00 Globulin 2.8 gm/dL (2.2-3.9) 07/10/18 06:00 Albumin/Globulin Ratio 1.0 (1.0-2.1) 07/10/18 06:00 Venous Blood Potassium 3.8 mmol/L (3.6-5.2) 07/09/18 10:06 Urine Color Yellow (YELLOW) 07/08/18 12:44 Urine Clarity Slighty-cloudy (Clear) 07/08/18 12:44 Urine pH 6.0 (5.0-8.0) 07/08/18 12:44 Ur Specific [place] 1.013 (1.003-1.030) 07/08/18 12:44 Urine Protein 30 mg/dL (NEGATIVE) 07/08/18 12:44 Urine Glucose (UA) Neg mg/dL (NEGATIVE) 07/08/18 12:44 Urine Ketones Trace mg/dL (NEGATIVE) 07/08/18 12:44 Urine Blood Small (NEGATIVE) 07/08/18 12:44 Urine Nitrate Negative (NEGATIVE) 07/08/18 12:44 Urine Bilirubin Negative (NEGATIVE) 07/08/18 12:44 Urine Urobilinogen 0.2-1.0 mg/dL (0.2-1.0) 07/08/18 12:44 Ur Leukocyte Esterase Neg Brandie/uL (Negative) 07/08/18 12:44 Urine RBC (Auto) 4 /hpf (0-3) H 07/08/18 12:44 Urine Microscopic WBC 6 /hpf (0-5) H 07/08/18 12:44 Urine Bacteria Rare (<OCC) 07/08/18 12:44 Hyaline Casts 0-2 /hpf (0-2) 07/08/18 12:44 Blood Type A POSITIVE 07/08/18 13:30 Antibody Screen Negative 07/08/18 13:30 BBK History Checked Patient has bt 07/08/18 13:30 - Hospital Course Hospital Course: 38 y/o F with hx of uterine fibroids, endometriosis, menorrhagia and anemia admitted for abdominal pain, leukocytosis and suspected cholecystitis Discharge Exam - Head Exam Head Exam: ATRAUMATIC, NORMAL INSPECTION Discharge Plan - Discharge Medications Prescriptions: Amoxicillin/Clavulanate [Augmentin 875 MG-125 MG] 1 tab PO BID 7 Days #14 tab Doxycycline Hyclate [Doryx] 100 mg PO Q12 7 Days #14 cap - Follow Up Plan Condition: FAIR Disposition: HOME/ ROUTINE Instructions: Sepsis, Adult (DC), Uterine Fibroids (DC) Additional Instructions: follow up with primary MD and WHEEL [employer] SUPERVISOR 1 week Referrals: [facility] [Outside] Peterson Sierra MD [Staff Provider] - Arnol Rojas [Staff Provider] - Arcadio Stone MD [Staff Provider] - <Melisa Jackson - Last Filed: 07/12/18 10:51> Provider - Provider Date of Admission: 07/08/18 21:14 Agree with findings and plan as above. Patient admitted for sepsis likely secondary to infected cystic degeneration of fibroids. Pt responded well to ABX, was evaluated by surgery for cholecystitis, and was also admitted for GYNX2 who recommended outpatient hysterectomy at [facility]. Patient discharged with abx and instructions for close follow up with PCP and OBGYN at [facility]. Attending physician: Lazaro Champagne MD Consults: 07/08/18 21:16 Surgery [General Surgery Consult] Stat Comment: Consulting Provider: Peterson Sierra Consulting Physician: Peterson Sierra Reason for Consult: abdominal infection 07/08/18 21:17 Gynocology [BREEDING MANAGER Consult] Stat Comment: Consulting Provider: Arnol Rojas Consulting Physician: Arnol Rojas Reason for Consult: possible ovarian torsion 07/08/18 21:18 Surgery [General Surgery Consult] Stat Comment: Consulting Provider: Peterson Sierra Consulting Physician: Peterson Sierra Reason for Consult: evaluate for cholecystitis 07/10/18 08:51 Infectious Disease Consult Routine Comment: Consulting Provider: Arcadio Stone Consulting Physician: Arcadio Stone Reason for Consult: Bandemia. Possible intrabdominal infection Hospital Course - Lab Results Lab Results: Micro Results 07/08/18 13:30 Blood-Venous Blood Culture - Preliminary NO GROWTH AFTER 3 DAYS 07/08/18 13:30 Blood-Venous Blood Culture - Preliminary NO GROWTH AFTER 3 DAYS 07/08/18 12:44 Urine,Clean Catch Urine Culture - Final No Growth (<1,000 CFU/ML) Most Recent Lab Values WBC 9.5 K/uL (4.8-10.8) D 07/11/18 05:50 RBC 3.10 Mil/uL (3.80-5.20) L 07/11/18 05:50 Hgb 9.7 g/dL (12.0-16.0) L 07/11/18 05:50 Hct 28.4 % (34.0-47.0) L 07/11/18 05:50 MCV 91.5 fl (81.0-99.0) 07/11/18 05:50 MCH 31.4 pg (27.0-31.0) H 07/11/18 05:50 MCHC 34.3 g/dL (33.0-37.0) 07/11/18 05:50 RDW 13.0 % (11.5-14.5) 07/11/18 05:50 Plt Count 297 K/uL (130-400) 07/11/18 05:50 MPV 8.1 fl (7.2-11.7) 07/10/18 07:00 Neut % (Auto) 89.2 % (50.0-75.0) H 07/10/18 07:00 Lymph % (Auto) 6.6 % (20.0-40.0) L 07/10/18 07:00 Hood % (Auto) 3.4 % (0.0-10.0) 07/10/18 07:00 Eos % (Auto) 0.5 % (0.0-4.0) 07/10/18 07:00 Baso % (Auto) 0.3 % (0.0-2.0) 07/10/18 07:00 Neut # (Auto) 17.9 K/uL (1.8-7.0) H 07/10/18 07:00 Lymph # (Auto) 1.3 K/uL (1.0-4.3) 07/10/18 07:00 Hood # (Auto) 0.7 K/uL (0.0-0.8) 07/10/18 07:00 Eos # (Auto) 0.1 K/uL (0.0-0.7) 07/10/18 07:00 Baso # (Auto) 0.1 K/uL (0.0-0.2) 07/10/18 07:00 Neutrophils % (Manual) 79 % (42-75) H 07/09/18 05:30 Band Neutrophils % 17 % (0-2) H* 07/09/18 05:30 Lymphocytes % (Manual) 2 % (20-50) L 07/09/18 05:30 Monocytes % (Manual) 2 % (0-10) 07/09/18 05:30 Eosinophils % (Manual) 1 % (0-7) 07/08/18 17:19 Platelet Estimate Normal (NORMAL) 07/09/18 05:30 Large Platelets Present 07/09/18 05:30 Giant Platelets Present 07/09/18 05:30 RBC Morphology Normal (NORMAL) 07/08/18 12:00 Hypochromasia (manual) Slight 07/09/18 05:30 Anisocytosis (manual) Slight 07/09/18 05:30 pO2 36 mm/Hg (30-55) 07/09/18 10:06 VBG pH 7.35 (7.32-7.43) 07/09/18 10:06 VBG pCO2 37 mmHg (40-60) L 07/09/18 10:06 VBG HCO3 20.4 mmol/L 07/09/18 10:06 VBG Total CO2 21.5 mmol/L (22-28) L 07/09/18 10:06 VBG O2 Sat (Calc) 73.5 % (40-65) H 07/09/18 10:06 VBG Base Excess -4.7 mmol/L (0.0-2.0) L 07/09/18 10:06 VBG Potassium 3.8 mmol/L (3.6-5.2) 07/09/18 10:06 Sodium 136.0 mmol/L (132-148) 07/09/18 10:06 Chloride 106.0 mmol/L (98-107) 07/09/18 10:06 Glucose 64 mg/dL (65-105) L 07/09/18 10:06 Lactate 0.9 mmol/L (0.7-2.1) 07/09/18 10:06 FiO2 21.0 % 07/09/18 10:06 Sodium 135 mmol/l (132-148) 07/10/18 06:00 Potassium 3.5 MMOL/L (3.6-5.0) L 07/10/18 06:00 Chloride 106 mmol/L (98-107) 07/10/18 06:00 Carbon Dioxide 19 mmol/L (22-30) L 07/10/18 06:00 Anion Gap 14 (10-20) 07/10/18 06:00 BUN 3 mg/dl (7-17) L 07/10/18 06:00 Creatinine 0.5 mg/dl (0.7-1.2) L 07/10/18 06:00 Est GFR ( Amer) > 60 07/10/18 06:00 Est GFR (Non-Af Amer) > 60 07/10/18 06:00 POC Glucose (mg/dL) 110 mg/dL (65-110) 07/08/18 17:01 Random Glucose 84 mg/dL (65-105) 07/10/18 06:00 Calcium 8.1 mg/dL (8.4-10.2) L 07/10/18 06:00 Total Bilirubin 0.5 mg/dl (0.2-1.3) 07/10/18 06:00 Direct Bilirubin 0.3 mg/ml (0.0-0.4) 07/08/18 21:14 AST 19 U/L (14-36) 07/10/18 06:00 ALT 26 U/L (9-52) 07/10/18 06:00 Alkaline Phosphatase 80 U/L (38-126) 07/10/18 06:00 Total Protein 5.8 G/DL (6.3-8.2) L 07/10/18 06:00 Albumin 2.9 g/dL (3.5-5.0) L 07/10/18 06:00 Globulin 2.8 gm/dL (2.2-3.9) 07/10/18 06:00 Albumin/Globulin Ratio 1.0 (1.0-2.1) 07/10/18 06:00 Venous Blood Potassium 3.8 mmol/L (3.6-5.2) 07/09/18 10:06 Urine Color Yellow (YELLOW) 07/08/18 12:44 Urine Clarity Slighty-cloudy (Clear) 07/08/18 12:44 Urine pH 6.0 (5.0-8.0) 07/08/18 12:44 Ur Specific [place] 1.013 (1.003-1.030) 07/08/18 12:44 Urine Protein 30 mg/dL (NEGATIVE) 07/08/18 12:44 Urine Glucose (UA) Neg mg/dL (NEGATIVE) 07/08/18 12:44 Urine Ketones Trace mg/dL (NEGATIVE) 07/08/18 12:44 Urine Blood Small (NEGATIVE) 07/08/18 12:44 Urine Nitrate Negative (NEGATIVE) 07/08/18 12:44 Urine Bilirubin Negative (NEGATIVE) 07/08/18 12:44 Urine Urobilinogen 0.2-1.0 mg/dL (0.2-1.0) 07/08/18 12:44 Ur Leukocyte Esterase Neg Brandie/uL (Negative) 07/08/18 12:44 Urine RBC (Auto) 4 /hpf (0-3) H 07/08/18 12:44 Urine Microscopic WBC 6 /hpf (0-5) H 07/08/18 12:44 Urine Bacteria Rare (<OCC) 07/08/18 12:44 Hyaline Casts 0-2 /hpf (0-2) 07/08/18 12:44 Blood Type A POSITIVE 07/08/18 13:30 Antibody Screen Negative 07/08/18 13:30 BBK History Checked Patient has bt 07/08/18 13:30
[2018-07-11 16:08] VITALS: BP 103/63; PULSE 72; RESP 18; TEMP 97.9; O2SAT 99
== END 2018-07-11 17:10 | disposition home or self-care (01) | DRG 720 ==
LOC: H.ER 10:26 → H.ERHOLD 21:14 → H.MEDSURG1 23:20
PROVIDERS: ADMIT Internal Medicine; ATTEND Internal Medicine
DX: A41.9 Sepsis, unspecified organism (principal); N71.9 Inflammatory disease of uterus, unspecified; D25.9 Leiomyoma of uterus, unspecified; D50.0 Iron deficiency anemia secondary to blood loss (chronic); N94.6 Dysmenorrhea, unspecified; K80.20 Calculus of gallbladder without cholecystitis without obstruction; N83.291 Other ovarian cyst, right side; N92.0 Excessive and frequent menstruation with regular cycle; Z87.440 Personal history of urinary (tract) infections